=== PATIENT | male | born 1960 | race Caucasian/White ===

== ENCOUNTER 2020-03-06 11:05 | Outpatient (REF) | payer MEDICARE, OTHER, SELFPAY ==
[2020-03-06 13:41] LABS: MANUAL DIFF FLAG NO
[2020-03-06 13:50] LABS: Basophils Absolute Auto 0.1 X10*3/uL (0.0-0.2); Basophils Percent Auto 0.5 % (0-2); Eosinophils Absolute Auto 0.3 X10*3/uL (0.0-0.4); Eosinophils Percent Auto 2.6 % (0-4); Hematocrit 41.2 % (42-52); Hemoglobin 13.5 g/dl (14.0-18.0); Imm Gran Abs Auto 0.03 X10*3/uL (0.00-0.03); Imm Gran Pct Auto 0.3 % (0.0-0.4); Lymphocytes Absolute Auto 3.6 X10*3/uL (1.2-4.9); Mean Corpuscular HGB Conc 32.8 g/dl (31.0-36.0); Mean Corpuscular Volume 88.4 fL (80-98); Mean Platelet Volume 11.6 fL (9.4-12.4); Monocytes Absolute Auto 0.5 X10*3/uL (0.1-1.2); Monocytes Percent Auto 5.4 % (2-11); Neutrophils Absolute Auto 5.3 X10*3/uL (2.0-8.3); Neutrophils Percent Auto 54.2 % (45-73); Platelet Count 283 X10*3/uL (160-400); Red Blood Count 4.66 X10*6/uL (4.60-5.80); Red Cell Distribution Width 12.9 % (11.0-16.0); White Blood Count 9.7 X10*3/uL (4.8-10.8)
[2020-03-06 14:06] LABS: Estimated Average Glucose 252 mg/dL; Hemoglobin A1c % 10.4 %
[2020-03-06 14:11] LABS: Alanine Aminotransferase 24 U/L (0-40); Albumin Level 4.6 g/dL (3.5-5.0); Alkaline Phosphatase 123 U/L (39-117); Anion Gap 15 (12-20); Aspartate Amino Transferase 13 U/L (5-37); Bilirubin Total 0.3 mg/dL (0.0-1.0); Blood Urea Nitrogen 14 mg/dL (9-16); Calcium 9.7 mg/dL (8.4-10.2); Carbon Dioxide 25 mmol/L (22-29); Chloride 99 mmol/L (96-108); Cholesterol 194 mg/dL; Estimated Glomerular Filt Rate > 60; Glucose Random 195 mg/dL (60-115); Potassium 4.8 mmol/l (3.3-5.1); Sodium 134 mmol/L (135-145); Total Protein 7.4 g/dL (6.5-8.0)
[2020-03-06 14:27] LABS: Prostate Specific Antigen 0.69 ng/mL (<0.05-4.0)
[2020-03-06 14:40] LABS: Creatinine Urine 45.63 mg/dL; Microalbum/Creatinine Ratio Ur 15.3 ug/mg cr
== END 2020-03-06 11:06 | disposition home or self-care (01) ==
LOC: HO.10HDL 11:05
PROVIDERS: Visit Provider Internal Medicine
DX: E11.22 Type 2 diabetes mellitus with diabetic chronic kidney disease (principal); I12.9 Hypertensive chronic kidney disease with stage 1 through stage 4 chronic kidney disease, or unspecified chronic kidney disease; N18.9 Chronic kidney disease, unspecified; R35.1 Nocturia; J44.9 Chronic obstructive pulmonary disease, unspecified
CPT/HCPCS: 36415; 80053; 82043; 82465; 83036; 84153; 85025

== ENCOUNTER → 2020-03-31 15:10 | Outpatient (BNVA) | payer MEDICARE, OTHER, SELFPAY | PROVIDERS: PCP Internal Medicine; Visit Provider Physician Assistant Medical | DX: Z76.89 Persons encountering health services in other specified circumstances (principal) | CPT/HCPCS: G0296 ==

== ENCOUNTER 2020-04-24 09:46 | Outpatient (REF) | payer MEDICARE, OTHER, SELFPAY ==
--- NOTE | 2020-04-24 09:50 | CT_ITS ---
EXAMINATION: CT CHEST SCREENING CLINICAL INFORMATION: Nicotine dependence. COMPARISON: None TECHNIQUE: Multidetector volumetric CT imaging of the chest is performed without contrast using low dose technique. Additional 2D coronal and sagittal reformatted images and axial 3D maximum intensity projection (MIP) images are generated on the CT workstation. This CT examination was performed using dose optimization techniques as appropriate, variously including the following: *Automated exposure control *Adjustment of mA and/or kV according to patient size (this includes techniques or standardized protocols for targeted exams where dose is matched to indication/reason for exam; i.e. extremities or head) *Use of iterative reconstruction technique DLP: 75 mGy-cm FINDINGS: LUNGS: The lungs are well expanded and clear of acute pneumonic process. There are 1 mm calcified nodules right upper lobe image 106/6 and 108/6, right lower lobe subpleural location image 322/6. There are several more punctate calcified nodules seen scattered in lungs. No noncalcified nodule seen. No ground-glass density. MEDIASTINUM: There is atherosclerotic calcified changes of the thoracic arch. The central trachea and the bronchi are widely patent. The thyroid lobes are symmetrical. No abnormal-sized mediastinal or hilar lymph node seen. There is no pericardial effusion. PLEURA: There is no pleural effusion. No pleural mass or thickening. AXILLA: No lymphadenopathy. UPPER ABDOMEN: Visualized liver, spleen, pancreas and bilateral adrenal glands are unremarkable. There are punctate radiopaque gallstones. OSSEOUS STRUCTURES: There is moderate ventral spondylosis mid and lower dorsal spine. No lytic process. CT/CT lung screening IMPRESSION: Punctate calcified 2 mm and less nodules. No abnormal-sized mediastinal or axillary lymph nodes. ASSESSMENT: Lung-RADS category 2: Benign. RECOMMENDATION: Low dose annual CT chest.
== END 2020-04-24 09:47 | disposition home or self-care (01) ==
LOC: HO.CT 09:46
PROVIDERS: Visit Provider Physician Assistant Medical
DX: Z12.2 Encounter for screening for malignant neoplasm of respiratory organs (principal); F17.210 Nicotine dependence, cigarettes, uncomplicated
CPT/HCPCS: 71271

== ENCOUNTER 2020-06-05 11:33 | Outpatient (REF) | payer MEDICARE, OTHER, SELFPAY ==
[2020-06-05 13:48] LABS: MANUAL DIFF FLAG NO
[2020-06-05 14:01] LABS: Basophils Absolute Auto 0.1 X10*3/uL (0.0-0.2); Basophils Percent Auto 0.6 % (0-2); Eosinophils Absolute Auto 0.2 X10*3/uL (0.0-0.4); Eosinophils Percent Auto 2.4 % (0-4); Hematocrit 42.8 % (42-52); Imm Gran Abs Auto 0.04 X10*3/uL (0.00-0.03); Imm Gran Pct Auto 0.4 % (0.0-0.4); Lymphocytes Absolute Auto 3.5 X10*3/uL (1.2-4.9); Lymphocytes Percent Auto 35.3 % (20-40); Mean Corpuscular HGB Conc 32.7 g/dl (31.0-36.0); Mean Corpuscular Hemoglobin 28.9 pg (27.0-33.0); Mean Corpuscular Volume 88.4 fL (80-98); Mean Platelet Volume 11.5 fL (9.4-12.4); Monocytes Absolute Auto 0.5 X10*3/uL (0.1-1.2); Monocytes Percent Auto 4.9 % (2-11); Neutrophils Absolute Auto 5.6 X10*3/uL (2.0-8.3); Neutrophils Percent Auto 56.4 % (45-73); Platelet Count 292 X10*3/uL (160-400); Red Blood Count 4.84 X10*6/uL (4.60-5.80); White Blood Count 9.8 X10*3/uL (4.8-10.8)
[2020-06-05 14:40] LABS: Creatinine Urine 77.06 mg/dL; Microalbum/Creatinine Ratio Ur 28.5 ug/mg cr
[2020-06-05 14:44] LABS: Alanine Aminotransferase 30 U/L (0-40); Albumin Level 4.7 g/dL (3.5-5.0); Alkaline Phosphatase 124 U/L (39-117); Anion Gap 14 (12-20); Aspartate Amino Transferase 17 U/L (5-37); Bilirubin Total 0.3 mg/dL (0.0-1.0); Blood Urea Nitrogen 17 mg/dL (9-16); Carbon Dioxide 26 mmol/L (22-29); Chloride 100 mmol/L (96-108); Estimated Glomerular Filt Rate > 60; Glucose Random 244 mg/dL (60-115); Sodium 135 mmol/L (135-145); Total Protein 7.6 g/dL (6.5-8.0)
[2020-06-05 14:46] LABS: Estimated Average Glucose 289 mg/dL; Hemoglobin A1c % 11.7 %
== END 2020-06-05 11:34 | disposition home or self-care (01) ==
LOC: HO.10HDL 11:33
PROVIDERS: Visit Provider Internal Medicine
DX: E11.22 Type 2 diabetes mellitus with diabetic chronic kidney disease (principal); I12.9 Hypertensive chronic kidney disease with stage 1 through stage 4 chronic kidney disease, or unspecified chronic kidney disease; N18.9 Chronic kidney disease, unspecified; J44.9 Chronic obstructive pulmonary disease, unspecified
CPT/HCPCS: 36415; 80053; 82043; 83036; 85025

== ENCOUNTER 2020-09-13 08:26 | Outpatient (REF) | payer MEDICARE, OTHER, SELFPAY ==
--- NOTE | ~2020-09-13 | XR_ITS ---
EXAMINATION: XR CERVICAL SPINE CLINICAL INFORMATION: Neck and right shoulder pain. COMPARISON: 01/12/2018 cervical spine radiographs. TECHNIQUE: 5 views of the cervical spine were obtained. FINDINGS: There is straightening of the normal cervical lordosis. There is normal spinal alignment. Moderate degenerative disc disease is seen from C4-5 to C6-7. Mild bilateral neural foraminal narrowing is seen from C3-4 to C6-7 bilaterally. The facet joints are unremarkable. The odontoid process is intact. The prevertebral soft tissues are unremarkable. XR/XR cervical spine min 6V IMPRESSION: 1. Straightening of the normal cervical lordosis may be secondary to positioning and/or muscle spasm. 2. C4-5 to C6-7 moderate degenerative disc disease. 3. C3-4 to C6-7 mild bilateral neural foraminal narrowing.
[2020-09-13 09:12] LABS: MANUAL DIFF FLAG NO
[2020-09-13 09:21] LABS: Basophils Absolute Auto 0.1 X10*3/uL (0.0-0.2); Basophils Percent Auto 0.5 % (0-2); Eosinophils Absolute Auto 0.5 X10*3/uL (0.0-0.4); Eosinophils Percent Auto 4.2 % (0-4); Hematocrit 42.7 % (42-52); Imm Gran Abs Auto 0.05 X10*3/uL (0.00-0.03); Imm Gran Pct Auto 0.5 % (0.0-0.4); Lymphocytes Absolute Auto 3.2 X10*3/uL (1.2-4.9); Lymphocytes Percent Auto 29.1 % (20-40); Mean Corpuscular HGB Conc 32.8 g/dl (31.0-36.0); Mean Corpuscular Hemoglobin 28.9 pg (27.0-33.0); Monocytes Absolute Auto 0.6 X10*3/uL (0.1-1.2); Monocytes Percent Auto 5.7 % (2-11); Neutrophils Absolute Auto 6.6 X10*3/uL (2.0-8.3); Platelet Count 254 X10*3/uL (160-400); Red Blood Count 4.85 X10*6/uL (4.60-5.80); Red Cell Distribution Width 13.2 % (11.0-16.0); White Blood Count 10.9 X10*3/uL (4.8-10.8)
[2020-09-13 09:24] LABS: Estimated Average Glucose 298 mg/dL
[2020-09-13 09:48] LABS: Alanine Aminotransferase 34 U/L (0-40); Albumin Level 4.5 g/dL (3.5-5.0); Alkaline Phosphatase 124 U/L (39-117); Anion Gap 14 (12-20); Aspartate Amino Transferase 20 U/L (5-37); Bilirubin Total 0.4 mg/dL (0.0-1.0); Blood Urea Nitrogen 15 mg/dL (9-16); Carbon Dioxide 27 mmol/L (22-29); Chloride 98 mmol/L (96-108); Estimated Glomerular Filt Rate 57; Glucose Random 313 mg/dL (60-115); Sodium 134 mmol/L (135-145); Total Protein 7.2 g/dL (6.5-8.0)
[2020-09-13 09:51] LABS: Creatinine Urine 98.66 mg/dL; Microalbum/Creatinine Ratio Ur 20.2 ug/mg cr
== END 2020-09-13 08:27 | disposition home or self-care (01) ==
LOC: HO.LAB 08:26
PROVIDERS: PCP Internal Medicine; Visit Provider Internal Medicine
DX: I12.9 Hypertensive chronic kidney disease with stage 1 through stage 4 chronic kidney disease, or unspecified chronic kidney disease (principal); E11.22 Type 2 diabetes mellitus with diabetic chronic kidney disease; N18.9 Chronic kidney disease, unspecified; M54.2 Cervicalgia; M25.511 Pain in right shoulder
CPT/HCPCS: 36415; 72052; 80053; 82043; 83036; 85025

== ENCOUNTER 2020-11-07 09:25 | Outpatient (REF) | payer MEDICARE, OTHER, SELFPAY | END 2020-11-07 09:26 | disposition home or self-care (01) | LOC: HO.LAB 09:25 | PROVIDERS: PCP Internal Medicine; Visit Provider Family Medicine Adult Medicine | DX: G89.4 Chronic pain syndrome (principal); M54.2 Cervicalgia; M25.511 Pain in right shoulder; M25.562 Pain in left knee; M25.561 Pain in right knee; M13.0 Polyarthritis, unspecified; E11.9 Type 2 diabetes mellitus without complications; I10 Essential (primary) hypertension; F17.210 Nicotine dependence, cigarettes, uncomplicated; Z96.652 Presence of left artificial knee joint; Z98.1 Arthrodesis status; Z79.4 Long term (current) use of insulin; Z79.899 Other long term (current) drug therapy | CPT/HCPCS: 99202 ==

== ENCOUNTER 2021-04-02 08:24 | Outpatient (REF) | payer MEDICARE, OTHER, SELFPAY ==
[2021-04-02 10:14] LABS: MANUAL DIFF FLAG NO
[2021-04-02 10:21] LABS: Basophils Absolute Auto 0.1 X10*3/uL (0.0-0.2); Basophils Percent Auto 0.5 % (0-2); Eosinophils Absolute Auto 0.4 X10*3/uL (0.0-0.4); Eosinophils Percent Auto 3.8 % (0-4); Hematocrit 41.9 % (42.0-52.0); Hemoglobin 13.6 g/dl (14.0-18.0); Imm Gran Abs Auto 0.04 X10*3/uL (0.00-0.03); Imm Gran Pct Auto 0.4 % (0.0-0.4); Lymphocytes Absolute Auto 4.3 X10*3/uL (1.2-4.9); Lymphocytes Percent Auto 42.3 % (20-40); Mean Corpuscular HGB Conc 32.5 g/dl (31.0-36.0); Mean Corpuscular Hemoglobin 28.5 pg (27.0-33.0); Mean Corpuscular Volume 87.8 fL (80.0-98.0); Mean Platelet Volume 11.8 fL (9.4-12.4); Monocytes Absolute Auto 0.7 X10*3/uL (0.1-1.2); Monocytes Percent Auto 6.4 % (2-11); Neutrophils Absolute Auto 4.7 x10*3/uL (2.0-8.3); Neutrophils Percent Auto 46.6 % (45-73); Platelet Count 285 X10*3/uL (160-400); Red Blood Count 4.77 X10*6/uL (4.60-5.80); Red Cell Distribution Width 12.8 % (11.0-16.0); White Blood Count 10.2 X10*3/uL (4.8-10.8)
[2021-04-02 10:30] LABS: Alanine Aminotransferase 26 U/L (0-40); Albumin Level 4.3 g/dL (3.5-5.0); Alkaline Phosphatase 128 U/L (39-117); Anion Gap 15 (12-20); Aspartate Amino Transferase 14 U/L (5-37); Bilirubin Total 0.3 mg/dL (0.0-1.0); Blood Urea Nitrogen 12 mg/dL (9-16); Calcium 9.7 mg/dL (8.4-10.2); Carbon Dioxide 24 mmol/L (22-29); Chloride 101 mmol/L (96-108); Estimated Glomerular Filt Rate 55; Glucose Random 270 mg/dL (60-115); Potassium 4.9 mmol/L (3.3-5.1); Sodium 135 mmol/L (135-145); Total Protein 7.3 g/dL (6.5-8.0)
[2021-04-02 10:49] LABS: Estimated Average Glucose 283 mg/dL; Hemoglobin A1c % 11.5 %
[2021-04-02 10:53] LABS: Creatinine Urine 84.94 mg/dL; Microalbum/Creatinine Ratio Ur 25.9 ug/mg cr
== END 2021-04-02 08:25 | disposition home or self-care (01) ==
LOC: HO.10HDL 08:24
PROVIDERS: Visit Provider Internal Medicine
DX: E11.22 Type 2 diabetes mellitus with diabetic chronic kidney disease (principal); I12.9 Hypertensive chronic kidney disease with stage 1 through stage 4 chronic kidney disease, or unspecified chronic kidney disease; N18.9 Chronic kidney disease, unspecified; J44.9 Chronic obstructive pulmonary disease, unspecified; M19.90 Unspecified osteoarthritis, unspecified site
CPT/HCPCS: 36415; 80053; 82043; 83036; 85025

== ENCOUNTER 2021-07-20 07:57 | Outpatient (REF) | payer MEDICARE, OTHER, SELFPAY ==
--- NOTE | ~2021-07-20 | XR_ITS ---
EXAMINATION: XR SHOULDER, RIGHT CLINICAL INFORMATION: Pain COMPARISON: None TECHNIQUE: Three views of the right shoulder. XR/XR shoulder RT min 2V FINDINGS/IMPRESSION: No acute fracture or dislocation. Small marginal osteophytes along the acromioclavicular and glenohumeral joints. Soft tissues unremarkable.
== END 2021-07-20 07:58 | disposition home or self-care (01) ==
LOC: HO.HOSX 07:57
PROVIDERS: PCP Internal Medicine; Visit Provider Physician Assistant
DX: M25.511 Pain in right shoulder (principal); M47.812 Spondylosis without myelopathy or radiculopathy, cervical region
CPT/HCPCS: 73030; 99202

== ENCOUNTER → 2021-08-20 08:01 | Outpatient (BNVA) | payer MEDICARE, OTHER, SELFPAY | PROVIDERS: PCP Internal Medicine; Visit Provider Internal Medicine | DX: M79.18 Myalgia, other site (principal); M47.812 Spondylosis without myelopathy or radiculopathy, cervical region | CPT/HCPCS: 20552; 20553; 99212 ==

== ENCOUNTER 2021-09-17 08:25 | Outpatient (REF) | payer MEDICARE, OTHER, SELFPAY ==
[2021-09-17 10:52] LABS: Alanine Aminotransferase 26 U/L (0-40); Albumin Level 4.5 g/dL (3.5-5.0); Alkaline Phosphatase 120 U/L (39-117); Anion Gap 15 (12-20); Aspartate Amino Transferase 14 U/L (5-37); Bilirubin Total 0.4 mg/dL (0.0-1.0); Blood Urea Nitrogen 15 mg/dL (9-16); Calcium 9.6 mg/dL (8.4-10.2); Carbon Dioxide 25 mmol/L (22-29); Chloride 101 mmol/L (96-108); Estimated Glomerular Filt Rate 56; Glucose Random 218 mg/dL (60-115); Potassium 5.8 mmol/L (3.3-5.1); Sodium 135 mmol/L (135-145); Total Protein 7.4 g/dL (6.5-8.0)
[2021-09-17 10:58] LABS: Estimated Average Glucose 246 mg/dL; Hemoglobin A1c % 10.2 %
== END 2021-09-17 08:26 | disposition home or self-care (01) ==
LOC: HO.10HDL 08:25
PROVIDERS: Visit Provider Internal Medicine
DX: I12.9 Hypertensive chronic kidney disease with stage 1 through stage 4 chronic kidney disease, or unspecified chronic kidney disease (principal); N18.9 Chronic kidney disease, unspecified; E11.22 Type 2 diabetes mellitus with diabetic chronic kidney disease
CPT/HCPCS: 36415; 80053; 83036

== ENCOUNTER 2021-11-09 08:13 | Outpatient (REF) | payer MEDICARE, OTHER, SELFPAY ==
[2021-11-09 11:10] LABS: Anion Gap 16 (12-20); Blood Urea Nitrogen 18 mg/dL (9-16); Calcium 9.7 mg/dL (8.4-10.2); Carbon Dioxide 24 mmol/L (22-29); Chloride 101 mmol/L (96-108); Estimated Glomerular Filt Rate 54; Glucose Random 157 mg/dL (60-115); Potassium 5.6 mmol/L (3.3-5.1); Sodium 135 mmol/L (135-145)
== END 2021-11-09 08:14 | disposition home or self-care (01) ==
LOC: HO.10HDL 08:13
PROVIDERS: Visit Provider Internal Medicine
DX: E11.9 Type 2 diabetes mellitus without complications (principal); N18.9 Chronic kidney disease, unspecified
CPT/HCPCS: 36415; 80048

== ENCOUNTER 2021-12-04 08:04 | Outpatient (REF) | payer MEDICARE, OTHER, SELFPAY ==
[2021-12-04 10:56] LABS: Anion Gap 16 (12-20); Carbon Dioxide 23 mmol/L (22-29); Chloride 101 mmol/L (96-108); Potassium 4.9 mmol/L (3.3-5.1); Sodium 135 mmol/L (135-145)
== END 2021-12-04 08:05 | disposition home or self-care (01) ==
LOC: HO.10HDL 08:04
PROVIDERS: Visit Provider Internal Medicine
DX: E87.5 Hyperkalemia (principal)
CPT/HCPCS: 36415; 80051

== ENCOUNTER 2021-12-28 09:52 | Outpatient (REF) | payer MEDICARE, OTHER, SELFPAY ==
[2021-12-28 11:18] LABS: Estimated Average Glucose 212 mg/dL
[2021-12-28 11:38] LABS: Anion Gap 18 (12-20); Blood Urea Nitrogen 16 mg/dL (9-16); Calcium 9.9 mg/dL (8.4-10.2); Carbon Dioxide 26 mmol/L (22-29); Chloride 100 mmol/L (96-108); Estimated Glomerular Filt Rate 53; Glucose Random 150 mg/dL (60-115); Potassium 5.6 mmol/L (3.3-5.1); Sodium 138 mmol/L (135-145)
== END 2021-12-28 09:53 | disposition home or self-care (01) ==
LOC: HO.10HDL 09:52
PROVIDERS: Visit Provider Internal Medicine
DX: E11.9 Type 2 diabetes mellitus without complications (principal); I10 Essential (primary) hypertension
CPT/HCPCS: 36415; 80048; 83036

== ENCOUNTER 2022-05-14 08:11 | Outpatient (REF) | payer MEDICARE, MEDICAID, SELFPAY ==
[2022-05-14 11:05] LABS: Estimated Average Glucose 232 mg/dL; Hemoglobin A1c % 9.7 %
[2022-05-14 11:41] LABS: Alanine Aminotransferase 21 U/L (0-40); Albumin Level 4.6 g/dL (3.5-5.0); Alkaline Phosphatase 123 U/L (39-117); Anion Gap 14 (12-20); Aspartate Amino Transferase 14 U/L (5-37); Bilirubin Total 0.4 mg/dL (0.0-1.0); Blood Urea Nitrogen 15 mg/dL (9-16); Calcium 9.8 mg/dL (8.4-10.2); Carbon Dioxide 27 mmol/L (22-29); Chloride 103 mmol/L (96-108); Estimated Glomerular Filt Rate 58; Glucose Random 141 mg/dL (60-115); Potassium 5.1 mmol/L (3.3-5.1); Sodium 139 mmol/L (135-145); Total Protein 7.3 g/dL (6.5-8.0)
== END 2022-05-14 08:12 | disposition home or self-care (01) ==
LOC: HO.10HDL 08:11
PROVIDERS: Visit Provider Internal Medicine
DX: E11.22 Type 2 diabetes mellitus with diabetic chronic kidney disease (principal); I12.9 Hypertensive chronic kidney disease with stage 1 through stage 4 chronic kidney disease, or unspecified chronic kidney disease; N18.9 Chronic kidney disease, unspecified
CPT/HCPCS: 36415; 80053; 83036

== ENCOUNTER 2022-06-18 11:15 | Outpatient (REF) | payer MEDICARE, MEDICAID, SELFPAY ==
[2022-06-18 14:50] LABS: Estimated Average Glucose 229 mg/dL; Hemoglobin A1c % 9.6 %
[2022-06-18 14:59] LABS: Anion Gap 14 (12-20); Blood Urea Nitrogen 16 mg/dL (9-16); Carbon Dioxide 26 mmol/L (22-29); Chloride 104 mmol/L (96-108); Estimated Glomerular Filt Rate 59; Glucose Random 106 mg/dL (60-115); Potassium 5.3 mmol/L (3.3-5.1); Sodium 139 mmol/L (135-145)
== END 2022-06-18 11:16 | disposition home or self-care (01) ==
LOC: HO.10HDL 11:15
PROVIDERS: Visit Provider Internal Medicine
DX: E11.22 Type 2 diabetes mellitus with diabetic chronic kidney disease (principal); N18.9 Chronic kidney disease, unspecified
CPT/HCPCS: 36415; 80048; 83036

== ENCOUNTER 2022-12-19 06:49 | Outpatient (REF) | payer OTHER, SELFPAY ==
[2022-12-19 07:12] LABS: MANUAL DIFF FLAG NO
[2022-12-19 08:24] LABS: Estimated Average Glucose 180 mg/dL; Hemoglobin A1c % 7.9 % (<6.0)
[2022-12-19 08:34] LABS: Basophils Absolute Auto 0.1 X10*3/uL (0.0-0.2); Basophils Percent Auto 0.7 % (0-2); Eosinophils Absolute Auto 0.4 X10*3/uL (0.0-0.4); Eosinophils Percent Auto 3.6 % (0-4); Hematocrit 40.4 % (42.0-52.0); Hemoglobin 12.8 g/dl (14.0-18.0); Imm Gran Abs Auto 0.03 X10*3/uL (0.00-0.03); Imm Gran Pct Auto 0.3 % (0.0-0.4); Lymphocytes Absolute Auto 3.8 X10*3/uL (1.2-4.9); Mean Corpuscular HGB Conc 31.7 g/dl (31.0-36.0); Mean Corpuscular Hemoglobin 28.8 pg (27.0-33.0); Mean Platelet Volume 11.5 fL (9.4-12.4); Monocytes Absolute Auto 0.6 X10*3/uL (0.1-1.2); Monocytes Percent Auto 6.1 % (2-11); Neutrophils Absolute Auto 5.2 x10*3/uL (2.0-8.3); Neutrophils Percent Auto 51.3 % (45-73); Platelet Count 247 X10*3/uL (160-400); Red Blood Count 4.44 X10*6/uL (4.60-5.80); Red Cell Distribution Width 13.2 % (11.0-16.0); White Blood Count 10.1 X10*3/uL (4.8-10.8)
[2022-12-19 08:39] LABS: Alanine Aminotransferase 28 U/L (0-40); Albumin Level 4.4 g/dL (3.5-5.0); Alkaline Phosphatase 116 U/L (39-117); Anion Gap 14 (12-20); Aspartate Amino Transferase 19 U/L (5-37); Bilirubin Total 0.3 mg/dL (0.0-1.0); Blood Urea Nitrogen 14 mg/dL (9-16); Calcium 10.1 mg/dL (8.4-10.2); Carbon Dioxide 24 mmol/L (22-29); Chloride 103 mmol/L (96-108); Cholesterol 192 mg/dL (<200); Estimated Glomerular Filt Rate 53; Glucose Fasting 154 mg/dL (60-99); HDL Cholesterol 41 mg/dL (>40); LDL Cholesterol Calculated 103 mg/dL (<100); Potassium 5.2 mmol/L (3.3-5.1); Sodium 136 mmol/L (135-145); Total Protein 7.7 g/dL (6.5-8.0); Triglycerides 244 mg/dL (<150)
[2022-12-19 08:57] LABS: Appearance Urine Clear; Color Urine Yellow; Glucose Urine UA 100 mg/dL (Negative); Leukocyte Esterase Urine Negative (Negative); Nitrite Urine Negative (Negative); Urine Blood Negative (Negative); Urine Ketones Negative (Negative); Urine Protein Negative (Neg-Trace)
[2022-12-19 09:03] LABS: Prostate Specific Antigen 0.83 ng/mL (<0.05-4.0)
[2022-12-19 09:16] LABS: Creatinine Urine 37.15 mg/dL; Microalbum/Creatinine Ratio Ur 34.9 ug/mg cr (<30)
== END 2022-12-19 06:50 | disposition home or self-care (01) ==
LOC: HO.LAB 06:49
PROVIDERS: PCP Internal Medicine; Visit Provider Internal Medicine
DX: E11.9 Type 2 diabetes mellitus without complications (principal); I10 Essential (primary) hypertension; E78.00 Pure hypercholesterolemia, unspecified; J44.9 Chronic obstructive pulmonary disease, unspecified; Z12.5 Encounter for screening for malignant neoplasm of prostate
CPT/HCPCS: 36415; 80053; 80061; 81003; 82043; 82570; 83036; 84153; 85025

== ENCOUNTER 2023-03-11 08:55 | Outpatient (REF) | payer OTHER, SELFPAY ==
[2023-03-11 10:46] LABS: MANUAL DIFF FLAG NO
[2023-03-11 10:51] LABS: Basophils Absolute Auto 0.1 X10*3/uL (0.0-0.2); Basophils Percent Auto 0.6 % (0-2); Eosinophils Absolute Auto 0.4 X10*3/uL (0.0-0.4); Eosinophils Percent Auto 3.6 % (0-4); Hematocrit 41.5 % (42.0-52.0); Hemoglobin 13.4 g/dl (14.0-18.0); Imm Gran Abs Auto 0.03 X10*3/uL (0.00-0.03); Imm Gran Pct Auto 0.3 % (0.0-0.4); Lymphocytes Absolute Auto 3.8 X10*3/uL (1.2-4.9); Lymphocytes Percent Auto 39.6 % (20-40); Mean Corpuscular HGB Conc 32.3 g/dl (31.0-36.0); Mean Corpuscular Hemoglobin 28.5 pg (27.0-33.0); Mean Corpuscular Volume 88.1 fL (80.0-98.0); Mean Platelet Volume 10.7 fL (9.4-12.4); Monocytes Absolute Auto 0.7 X10*3/uL (0.1-1.2); Monocytes Percent Auto 6.9 % (2-11); Neutrophils Absolute Auto 4.7 x10*3/uL (2.0-8.3); Platelet Count 288 X10*3/uL (160-400); Red Blood Count 4.71 X10*6/uL (4.60-5.80); White Blood Count 9.7 X10*3/uL (4.8-10.8)
[2023-03-11 11:01] LABS: Estimated Average Glucose 229 mg/dL; Hemoglobin A1c % 9.6 % (<6.0)
[2023-03-11 11:08] LABS: Alanine Aminotransferase 23 U/L (0-40); Albumin Level 4.3 g/dL (3.5-5.0); Alkaline Phosphatase 122 U/L (39-117); Anion Gap 11 (12-20); Aspartate Amino Transferase 16 U/L (5-37); Bilirubin Total 0.3 mg/dL (0.0-1.0); Blood Urea Nitrogen 13 mg/dL (9-16); Calcium 9.4 mg/dL (8.4-10.2); Carbon Dioxide 26 mmol/L (22-29); Chloride 102 mmol/L (96-108); Estimated Glomerular Filt Rate 55; Glucose Random 192 mg/dL (60-115); Potassium 4.8 mmol/L (3.3-5.1); Sodium 134 mmol/L (135-145); Total Protein 7.4 g/dL (6.5-8.0)
[2023-03-11 11:15] LABS: Creatinine Urine 77.74 mg/dL; Microalbum/Creatinine Ratio Ur 23.1 ug/mg cr (<30)
== END 2023-03-11 08:56 | disposition home or self-care (01) ==
LOC: HO.10HDL 08:55
PROVIDERS: Visit Provider Internal Medicine
DX: I12.9 Hypertensive chronic kidney disease with stage 1 through stage 4 chronic kidney disease, or unspecified chronic kidney disease (principal); E11.22 Type 2 diabetes mellitus with diabetic chronic kidney disease; N18.9 Chronic kidney disease, unspecified; J44.9 Chronic obstructive pulmonary disease, unspecified
CPT/HCPCS: 36415; 80053; 82043; 82570; 83036; 85025

== ENCOUNTER 2023-06-03 09:44 | Outpatient (REF) | payer OTHER, SELFPAY ==
[2023-06-03 10:51] LABS: MANUAL DIFF FLAG NO
[2023-06-03 11:01] LABS: Basophils Percent Auto 0.4 % (0-2); Eosinophils Absolute Auto 0.2 X10*3/uL (0.0-0.4); Hematocrit 42.1 % (42.0-52.0); Hemoglobin 13.8 g/dl (14.0-18.0); Imm Gran Abs Auto 0.03 X10*3/uL (0.00-0.03); Imm Gran Pct Auto 0.3 % (0.0-0.4); Lymphocytes Absolute Auto 2.8 X10*3/uL (1.2-4.9); Lymphocytes Percent Auto 29.4 % (20-40); Mean Corpuscular HGB Conc 32.8 g/dl (31.0-36.0); Mean Corpuscular Hemoglobin 28.8 pg (27.0-33.0); Mean Corpuscular Volume 87.9 fL (80.0-98.0); Mean Platelet Volume 11.1 fL (9.4-12.4); Monocytes Absolute Auto 0.5 X10*3/uL (0.1-1.2); Monocytes Percent Auto 5.6 % (2-11); Neutrophils Percent Auto 62.3 % (45-73); Platelet Count 320 X10*3/uL (160-400); Red Blood Count 4.79 X10*6/uL (4.60-5.80); Red Cell Distribution Width 13.2 % (11.0-16.0); White Blood Count 9.6 X10*3/uL (4.8-10.8)
[2023-06-03 11:02] LABS: Estimated Average Glucose 200 mg/dL; Hemoglobin A1c % 8.6 % (<6.0)
[2023-06-03 11:22] LABS: Alanine Aminotransferase 20 U/L (0-40); Albumin Level 4.3 g/dL (3.5-5.0); Alkaline Phosphatase 125 U/L (39-117); Anion Gap 14 (12-20); Aspartate Amino Transferase 12 U/L (5-37); Bilirubin Total 0.3 mg/dL (0.0-1.0); Blood Urea Nitrogen 19 mg/dL (9-16); Calcium 9.7 mg/dL (8.4-10.2); Carbon Dioxide 25 mmol/L (22-29); Chloride 101 mmol/L (96-108); Estimated Glomerular Filt Rate 52; Glucose Random 308 mg/dL (60-115); Potassium 5.5 mmol/L (3.3-5.1); Sodium 134 mmol/L (135-145); Total Protein 7.8 g/dL (6.5-8.0)
[2023-06-03 11:23] LABS: Creatinine Urine 41.23 mg/dL; Microalbum/Creatinine Ratio Ur 106.7 ug/mg cr (<30)
== END 2023-06-03 09:45 | disposition home or self-care (01) ==
LOC: HO.10HDL 09:44
PROVIDERS: Visit Provider Internal Medicine
DX: E11.9 Type 2 diabetes mellitus without complications (principal); J44.9 Chronic obstructive pulmonary disease, unspecified; I10 Essential (primary) hypertension
CPT/HCPCS: 36415; 80053; 82043; 82570; 83036; 85025

== ENCOUNTER 2023-07-01 10:33 | Outpatient (REF) | payer OTHER, SELFPAY ==
[2023-07-01 14:12] LABS: Anion Gap 14 (12-20); Blood Urea Nitrogen 16 mg/dL (9-16); Calcium 9.8 mg/dL (8.4-10.2); Carbon Dioxide 26 mmol/L (22-29); Chloride 102 mmol/L (96-108); Estimated Glomerular Filt Rate 51; Glucose Random 169 mg/dL (60-115); Potassium 4.7 mmol/L (3.3-5.1); Sodium 137 mmol/L (135-145)
== END 2023-07-01 10:34 | disposition home or self-care (01) ==
LOC: HO.10HDL 10:33
PROVIDERS: Visit Provider Internal Medicine
DX: I12.9 Hypertensive chronic kidney disease with stage 1 through stage 4 chronic kidney disease, or unspecified chronic kidney disease (principal); E11.22 Type 2 diabetes mellitus with diabetic chronic kidney disease; N18.9 Chronic kidney disease, unspecified
CPT/HCPCS: 36415; 80048

== ENCOUNTER 2023-11-17 09:12 | Outpatient (REF) | payer OTHER, SELFPAY ==
[2023-11-17 10:46] LABS: MANUAL DIFF FLAG NO
[2023-11-17 10:53] LABS: Basophils Absolute Auto 0.1 X10*3/uL (0.0-0.2); Basophils Percent Auto 0.5 % (0-2); Eosinophils Absolute Auto 0.3 X10*3/uL (0.0-0.4); Eosinophils Percent Auto 2.7 % (0-4); Hematocrit 42.7 % (42.0-52.0); Imm Gran Abs Auto 0.03 X10*3/uL (0.00-0.03); Imm Gran Pct Auto 0.3 % (0.0-0.4); Lymphocytes Absolute Auto 3.2 X10*3/uL (1.2-4.9); Lymphocytes Percent Auto 34.2 % (20-40); Mean Corpuscular HGB Conc 32.8 g/dl (31.0-36.0); Mean Corpuscular Hemoglobin 29.2 pg (27.0-33.0); Mean Platelet Volume 10.6 fL (9.4-12.4); Monocytes Absolute Auto 0.5 X10*3/uL (0.1-1.2); Monocytes Percent Auto 5.4 % (2-11); Neutrophils Absolute Auto 5.4 x10*3/uL (2.0-8.3); Neutrophils Percent Auto 56.9 % (45-73); Platelet Count 273 X10*3/uL (160-400); Red Cell Distribution Width 13.5 % (11.0-16.0); White Blood Count 9.4 X10*3/uL (4.8-10.8)
[2023-11-17 11:00] LABS: Estimated Average Glucose 223 mg/dL; Hemoglobin A1c % 9.4 % (<6.0)
[2023-11-17 11:01] LABS: Anion Gap 13 (12-20); Blood Urea Nitrogen 19 mg/dL (9-16); Calcium 10.1 mg/dL (8.4-10.2); Carbon Dioxide 28 mmol/L (22-29); Chloride 102 mmol/L (96-108); Cholesterol 179 mg/dL (<200); Estimated Glomerular Filt Rate 48; Glucose Random 122 mg/dL (60-115); HDL Cholesterol 39 mg/dL (>40); LDL Cholesterol Calculated 101 mg/dL (<100); Potassium 5.6 mmol/L (3.3-5.1); Sodium 137 mmol/L (135-145); Triglycerides 198 mg/dL (<150)
[2023-11-17 11:23] LABS: Prostate Specific Antigen 0.83 ng/mL (<0.05-4.0)
[2023-11-17 12:00] LABS: Appearance Urine Clear; Color Urine Yellow; Glucose Urine UA 500 mg/dL (Negative); Leukocyte Esterase Urine Negative (Negative); Nitrite Urine Negative (Negative); PH 6.5 (5.0-9.0); Urine Blood Negative (Negative); Urine Ketones Negative (Negative); Urine Protein Negative (Neg-Trace)
[2023-11-17 12:31] LABS: Creatinine Urine 55.77 mg/dL; Microalbum/Creatinine Ratio Ur 23.3 ug/mg cr (<30)
== END 2023-11-17 09:13 | disposition home or self-care (01) ==
LOC: HO.10HDL 09:12
PROVIDERS: Visit Provider Internal Medicine
DX: Z12.5 Encounter for screening for malignant neoplasm of prostate (principal); I12.9 Hypertensive chronic kidney disease with stage 1 through stage 4 chronic kidney disease, or unspecified chronic kidney disease; E11.22 Type 2 diabetes mellitus with diabetic chronic kidney disease; N18.9 Chronic kidney disease, unspecified; J44.9 Chronic obstructive pulmonary disease, unspecified; E78.00 Pure hypercholesterolemia, unspecified
CPT/HCPCS: 36415; 80048; 80061; 81003; 82043; 82570; 83036; 84153; 85025

== ENCOUNTER 2024-02-12 08:48 | Outpatient (REF) | payer OTHER, SELFPAY ==
[2024-02-12 09:04] LABS: MANUAL DIFF FLAG NO
[2024-02-12 09:16] LABS: Basophils Absolute Auto 0.1 X10*3/uL (0.0-0.2); Basophils Percent Auto 0.5 % (0-2); Eosinophils Absolute Auto 0.3 X10*3/uL (0.0-0.4); Eosinophils Percent Auto 3.1 % (0-4); Hemoglobin 14.7 g/dl (14.0-18.0); Imm Gran Abs Auto 0.03 X10*3/uL (0.00-0.03); Imm Gran Pct Auto 0.3 % (0.0-0.4); Lymphocytes Absolute Auto 3.4 X10*3/uL (1.2-4.9); Lymphocytes Percent Auto 30.6 % (20-40); Mean Corpuscular HGB Conc 32.7 g/dl (31.0-36.0); Mean Corpuscular Volume 88.8 fL (80.0-98.0); Mean Platelet Volume 10.6 fL (9.4-12.4); Monocytes Absolute Auto 0.6 X10*3/uL (0.1-1.2); Monocytes Percent Auto 5.7 % (2-11); Neutrophils Absolute Auto 6.7 x10*3/uL (2.0-8.3); Neutrophils Percent Auto 59.8 % (45-73); Platelet Count 298 X10*3/uL (160-400); Red Blood Count 5.07 X10*6/uL (4.60-5.80); Red Cell Distribution Width 13.2 % (11.0-16.0); White Blood Count 11.1 X10*3/uL (4.8-10.8)
[2024-02-12 09:25] LABS: Estimated Average Glucose 246 mg/dL; Hemoglobin A1C 324.0637 umol/L; Hemoglobin A1c % 10.2 % (<6.0); Total Hemoglobin (HGBA1C) 3676.9987 umol/L
[2024-02-12 09:40] LABS: Alanine Aminotransferase 24 U/L (0-40); Albumin Level 4.5 g/dL (3.5-5.0); Alkaline Phosphatase 140 U/L (39-117); Anion Gap 15 (12-20); Aspartate Amino Transferase 18 U/L (5-37); Bilirubin Total 0.4 mg/dL (0.0-1.0); Blood Urea Nitrogen 20 mg/dL (9-16); Calcium 10.9 mg/dL (8.4-10.2); Carbon Dioxide 26 mmol/L (22-29); Chloride 101 mmol/L (96-108); Estimated Glomerular Filt Rate 42; Glucose Random 184 mg/dL (60-115); Potassium 5.8 mmol/L (3.3-5.1); Sodium 136 mmol/L (135-145); Total Protein 7.9 g/dL (6.5-8.0)
[2024-02-12 10:28] LABS: Creatinine Urine 77.59 mg/dL; Microalbum/Creatinine Ratio Ur 11.5 ug/mg cr (<30)
== END 2024-02-12 08:49 | disposition home or self-care (01) ==
LOC: HO.LAB 08:48
PROVIDERS: PCP Internal Medicine; Visit Provider Internal Medicine
DX: E11.9 Type 2 diabetes mellitus without complications (principal); I10 Essential (primary) hypertension; K21.9 Gastro-esophageal reflux disease without esophagitis; N18.9 Chronic kidney disease, unspecified
CPT/HCPCS: 36415; 80053; 82043; 82570; 83036; 85025

== ENCOUNTER 2024-04-09 09:08 | Outpatient (REF) | payer OTHER, SELFPAY ==
--- NOTE | ~2024-04-09 | XR_ITS ---
EXAMINATION: XR CHEST CLINICAL INFORMATION: Shoulder pain. NIDD, rule out lesion. COMPARISON: CT lung screening dated 04/24/2020. TECHNIQUE: 2 views of the chest were obtained. FINDINGS: The lungs are clear. The cardiomediastinal silhouette is normal in size. There is no pleural effusion or pneumothorax. No acute osseous abnormality. XR/XR chest 2V IMPRESSION: No acute cardiopulmonary findings. Electronically signed by: Virgilio Huerta MD 04/09/2024 10:35 AM BELEN BOLTON
--- OUTSIDE RECORDS SUMMARY | 2024-04-09 09:20 | XMS_ITS ---
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 Name Role Phone Jj Douglas MD Primary Care Provider Gorge Albarado Unavailable [phone] Allergies No Known Allergies REASON FOR VISIT At Risk Footcare, Toe Irritation, Ingrown Nail Medications Medication SIG (Take, Route, Frequency, Duration) Notes Start Date End Date Status glipiZIDE 10 MG 1 tablet 30 minutes before breakfast Orally Once a day Active oxyCODONE HCl 10 MG 1 tablet as needed O rally every 6 hrs Active Gabapentin 300 MG 1 capsule Orally Onc e a day Active metFORMIN HCl 500 MG 1 tablet with a brayan l Orally Once a day Active Extra Depth Orthopedic Shoes (1 Pair) with Customized Heat Molded Multidensity Innersoles (3 Pair) as directed Dx: NIDDM/Polyneuropathy (E11.42), Hammertoe Foot Deformity (M20.41,M20.42), Preulcerative Skin Lesion(s) (L85.1 05/09/2023 Active Omeprazole 20 MG 1 capsule 30 minutes before morning meal Orally Once a day Active Lisinopril 20 MG 1 tablet Orally Once a day Active Lantus SoloStar 100 UNIT/ML as directed Subcutaneous Act mouna Atorvastatin Calcium 20 MG 1 tablet Orally Once a day Active Social History Tobacco Use: Social History Observation Description Date Details (start date - stop date) Current Smoker NA - NA Tobacco Use/Smoking Question Answer Notes Are you a: current smoker Alcohol Screen Question Answer Notes Did you have a drink containing alcohol in the p ast year? Yes Points 0 Interpretation Negative Tobacco use other than smoking: Question Answer Notes Are you an other tobacco user? No Vital Signs Height 5ft5in in 12/09/2023 Weight 228 lbs 12/09/2023 BMI 37.94 kg/m2 12/09/2023 Procedures Procedure Date Ordered Date Performed Result Body Sit e 46505-BQDHLCD NAIL, 1-5 12/09/2023 N/A 79710-Iqqrctfh Plate 12/09/2023 N/A 90860-QOVV SKIN LESIONS, 2 TO 4 12/09/2023 N/A Z2323-VTBZQLOI DYSTROPHIC NAILS ANY # 12/09/2023 N/A Encounters Encounter Location Date Provider Diagnosis [facility] [place] [address] [place] [address] 12/09/2023 Gorge Nath Type 2 diabetes mellitus with diabetic polyneuropathy E11.42 ; Tinea unguium B35.1 ; Other hammer toe(s) (acquired), right foot M20.41 ; Other hammer toe(s) (acquired), left foot M20.42 and Ingrown nail L60.0 Assessments Encounter Date Diagnosis (ICD Code) Assessment Notes Treatment Notes Treatment Clinical Notes Section Notes 12/09/2023 Type 2 diabetes mellitus with diabetic polyneuropathy (ICD-10 - E11.42) 12/09/2023 Tinea unguium (ICD-10 - B35.1) 12/09/2023 Other hammer toe(s) (acquired), right foot (ICD-10 - M20.41) Response to treatment,Impro vement 12/09/2023 Other hammer toe(s) (acquired), left foot (ICD-10 - M20.42) Response to treatment,Impro vement 12/09/2023 Ingrown nail (ICD-10 - L60.0) Plan Of Treatment Pending Test Test Name Order Date 77630-XWIALLT NAIL, 1-5 12/09/2023 96138-Ltepdryl Plate 12/09/2023 57869-UNOU SKIN LESIONS, 2 TO 4 12/09/19 24 X7015-MTVDRSXE DYSTROPHIC NAILS ANY # Next Appt Details Follow Up: prn, Reason: Provider Name:Gorge Nath , 06/01/2024 02:00:00 PM, [address] [place], [address], Procedure Notes * Category Sub-Category Detail Notes Nail Avulsion Procedure A fine sterile e levator was placed between the eponychium, nail fold, and nail plate to separate the structures. A sterile nail splitter, and/or sterile 316 blade, was then used to longitudinally section the nail along its entire length through the eponychium to the area under the nail fold. The offending portion of nail was from the nail bed with a rolling action and then removed with a hemostat. No underlying bone was identified. There was minimal bleeding as hemostasis was achieved through the temporary use of either a digital tourniquet or the aforementioned local with epinephrine. A bacitracin sterile dressing was applied. Local wound aftercare instructions were discussed and dispensed. The patient was informed of both conservative and future surgical procedures to prevent recurrence. Tylenol or Motrin was recommended for pain or discomfort (17984) , DIABETES: Pt was advised as to the risk of delayed or nonhealing due to diabetes. Pt is to call the office with any questions, concerns, or complications Anesthesia was deferred - NEURO FRANCISCO JAVIER: patient has medically documented neuropathic condition affecting sensation Location Medial nail border , T2 Keratoma Treatment Parring or Cutting o f Benign Hyperkeratotic Lesion(s) 42423 ( 2-4 Lesions ) - The Benign hyperkeratotic lesions, as described above were pared, and/or cut utilizing a sterile 15 blade, tissue nippers, and/or dremel Debride Nails 1-5 Procedure: Performance of this nail treatment by a nonprofessional would put this patients foot and overall health at risk. Therefore, nail debridement was performed extensively to reduce/remove overall nail length, girth, thickness, subungual debris, and necrotic tissue, by manual and/or electrical means through the use of a nail nipper and/or dremel-type grinder set up operator surface, to a more viable healthy nail plate or bed tissue 1-5. Silver nitrate used for any petechial bleeding as necessary. Definitive antifungal treatment options have been reviewed and discussed with the patient. The patient chooses, no pharmaceutical tx (99741) Nail Reduction Nail Reduction Trimming of dyst rophic nails performed to reduce/remove overall nail length and girth, by manual and electrical means with use of a nail nipper and/or dremel, to more viable healthy nail plate or bed tissue, any number (G0127) Progress Notes * Moo OLSON JrDOB:1 06/03/1959 (63 yo M)Acc No.[id number]:12/09/2023 Progress Note Patient:?Arcadio Olson Provider:?oGrge Nath DPM :1960???Age:63 Y???Sex:Male Dwayne e:12/09/2023 Address:[address] [place], [place] [id number] Pcp:Jj Douglas MD Subjective: * Chief Complaints: * ???At Risk FootcareToe Irrit ationIngrown Nail * HPI: ???At Risk footcare:?Pt States Last PCP Visit:?Date?11/06/2023 ???Toe pain:?Treatments:?Rx shoes .? * ROS:?General/Constitutional:?Nausea?denies.?Vomiting?denies.?Hunger Thirst?denies.?Loss appetite?denies.?Chills?denies.?Fatigue?denies.?Fever?denies.?Night Sweats?denies.?Unexplained weight loss?denies.?Unexplained weight gain?denies.?HEENTM:?Dentures?admits.?Dizziness?denies.?Glasses/contacts?admits.?Retinopathy?de nies.?Blurred/double vision?denies.?TMJ?denies.?Discharge/drainage?denies.?Implants?denies.?Sore throat?denies.?Dental implants?denies.?Hard of hearing ?denies.?Difficulty chewing/swallowing/speaking?denies.?Nose bleeds?denies.?Sore mouth?denies.?Respiratory:?On Oxygen?denies.?Pneumonia/pleurisy?denies.?Bronchitis?denies.?Emphysema?denies.?C oughing?denies.?Cough blood?denies.?Shortness of breath?denies.?Wheezing?denies.?Cardiovascular:?Pacemaker?denies.?MVP?denies.?WPW?denies.?CHF?denies.?Heart attack?denies.?Septal defect?denies.?Rapid beat?denies.?Chest pain ?denies.?Atrial Fib.?denies.?Murmur/Palpitations?denies.?Gastrointestinal:?Hemorrhoids?denies.?Stomach/Abdominal pain?denies.?Dark blood stool?denies.?Irritable bowel ?denies.?Constipation?denies.?Diarrhea?denies.?Hematology:?Swelling?denies.?Clots?denies.?Varicose Veins?denies.?Bruising?denies.?Bleeding problem?denies.?Genitourinary:?Blood urine?denies.?Frequent/Painfu/urination/bladder control?denies.?Kidney stones?denies.?Infection (UTI)?denies.?Nephropathy?admits.?sex trans dis (STD)?denies.?Prostate?denies.?Musculoskeletal:?Hammertoes?admits.?Bunions?denies.?Back Pain?admits.?Muscle Cramps/ Resting?denies.?Muscle cramps / walking?denies.?Generalized aches and pains?admits.?Weakness?denies.?Integ.:?Schwab?denies.?Scars?denies.?Corns/calluses?admits.?Ingrown nails?admits.?Painful nails?denies.?Open Sores?denies.?Rashes?denies.?Neurologic:?Difficulty sleeping?denies.?Brain disorder?denies.?Numbness?admits.?Balance trouble?denies.?Confusion?denies.?Fainting/blackouts?denies.?Tingling?admits.?Tr emors?denies.? * Medical History:? * Surgical History:?knee surge ry 2017back surgery 1995cyst removal from tailbone 1995 * Hospitalization/Major Diagno stic Procedure:?Denies Past Hospitalization * Family History:?Mother: unkn own.?Father: unknown, diagnosed with Other malignant neoplasm of unspecified site.? * Social History:?Tobacco Use:?Tobacco Use/Smoking?Are you a:?current smoker ?Tobacco use other than smoking?Are you an other tobacco user??No ???Drugs/Alcohol:?Drugs?Have you used drugs other than those for medical reasons in the past 12 months??No ?Alcohol Screen?Did you have a drink containing alcohol in the past year??Yes ?Points?0 ?Interpretation?Negative ???Miscellaneous:?Caffeine: yes, frequency:. ?Children: yes. ?no Exercise. ?Marital status: single. ?Occupation: Retired. * Medications:?TakingLantus So Khoiar 100 UNIT/ML Solution Pen-injector as directed Subcutaneous Atorvastatin Calcium 20 MG Tablet 1 tablet Orally Once a dayOmeprazole 20 MG Capsule Delayed Release 1 capsule 30 minutes before morning meal Orally Once a dayLisinopril 20 MG Tablet 1 tablet Orally Once a dayglipiZIDE 10 MG Tablet 1 tablet 30 minutes before breakfast Orally Once a dayoxyCODONE HCl 10 MG Tablet 1 tablet as needed Orally every 6 hrsGabapentin 300 MG Capsule 1 capsule Orally Once a daymetFORMIN HCl 500 MG Tablet 1 tablet with a meal Orally Once a dayExtra Depth Orthopedic Shoes (1 Pair) with Customized Heat Molded Multidensity Innersoles (3 Pair) as directed Dx: NIDDM/Polyneuropathy (E11.42), Hammertoe Foot Deformity (M20.41,M20.42), Preulcerative Skin Lesion(s) (L85.1Medication List reviewed and reconciled with the patientTaking Lantus SoloStar 100 UNIT/ML Solution Pen- injector as directed Subcutaneous Taking Atorvastatin Calcium 20 MG Tablet 1 tablet Orally Once a dayTaking Omeprazole 20 MG Capsule Delayed Release 1 capsule 30 minutes before morning meal Orally Once a dayTaking Lisinopril 20 MG Tablet 1 tablet Orally Once a dayTaking glipiZIDE 10 MG Tablet 1 tablet 30 minutes before breakfast Orally Once a dayTaking oxyCODONE HCl 10 MG Tablet 1 tablet as needed Orally every 6 hrsTaking Gabapentin 300 MG Capsule 1 capsule Orally Once a dayTaking metFORMIN HCl 500 MG Tablet 1 tablet with a meal Orally Once a dayTaking Extra Depth Orthopedic Shoes (1 Pair) with Customized Heat Molded Multidensity Innersoles (3 Pair) as directed Dx: NIDDM/Polyneuropathy (E11.42), Hammertoe Foot Deformity (M20.41,M20.42), Preulcerative Skin Lesion(s) (L85.1Medication List reviewed and reconciled with the patient * Allergies:?N.K.D.A.yes[Aller gies Verified] Objective: * Vitals:?Ht: 5ft5in, Wt:228, BMI:37.94, Shoe size: 10, BS: not taken, Ht-cm: 165.1 cm, Wt-k.42 kg. * Examination: ???Neurological: ?SENSORY:?Neurological exam demonstrates, reduced light touch sensation, reduced sharp/dull discrimination , reduced vibration sensation, in a stocking fashion, B/L, 5.07 monofilament test performed at plantar aspects of 5 varied sites per foot shows sensation, reduced, B/L?.?Nails: ?NAILS are:?Elongated, overgrown, dystrophic, lytic, greater than 3mm thick, discolored and friable with crumbly malodorous subungual debris , TA , T5 , remaining nails are elongated, overgrown, dystrophic.?Dermatologic: ?SKIN FINDINGS:?Skin exam reveals Keratotic lesion(s) located at , Heel(s) , B/L.?Orthopedic: ?DIGITAL DEFORMITIES:?Digital contracture, PIPJ, 2-5 B/L, incompl-reducible to push-up test, no over, nor underlapping, now no longer, with evidence of shoe producing skin irritation.?FOOTWEAR:?good condition, exhibit proper fit and accommodation for pedal deformities. OT were inspected and noted to be worn, but in good condition giving proper support at the present time.?Ingrown Nail: ?INSPECTION:?Reveals nail incurvation, dull pain on palpation due to neuropathy, groove hypertrophy , Medial nail border , T2.? Assessment: * Assessment: 1.?Tinea unguium - B35.1?2.? Type 2 diabetes mellitus with diabetic polyneuropathy - E11.42 (Primary)?3.?Other hammer toe(s) (acquired), right foot - M20.41, Chronic problem, Stable (1=3,2=4), Response to treatment,Improvement?4.?Other hammer toe(s) (acquired), left foot - M20.42, Chronic problem, Stable (1=3,2=4), Response to treatment,Improvement?5.?Ingrown nail - L60.0, Medial nail border , T2? Plan: * Treatment: 2.?Ingrown nail?Procedure: 92412-Txhfpjte Plate * Procedures:?Debride Nails 1-5:?Procedure:?Performance of this nail treatment by a nonprofessional would put this patients foot and overall health at risk. Therefore, nail debridement was performed extensively to reduce/remove overall nail length, girth, thickness, subungual debris, and necrotic tissue, by manual and/or electrical means through the use of a nail nipper and/or dremel-type grinder set up operator surface, to a more viable healthy nail plate or bed tissue 1-5. Silver nitrate used for any petechial bleeding as necessary. Definitive antifungal treatment options have been reviewed and discussed with the patient. The patient chooses, no pharmaceutical tx (91428).?Keratoma Treatment:?Parring or Cutting of Benign Hyperkeratotic Lesion(s)?92506 ( 2-4 Lesions ) - The Benign hyperkeratotic lesions, as described above were pared, and/or cut utilizing a sterile 15 blade, tissue nippers, and/or dremel.?Nail Avulsion:?Location?Medial nail border?,?T2.?Anesthesia?was deferred - NEUROPATHY: patient has medically documented neuropathic condition affecting sensation.?Procedure?A fine sterile elevator was placed between the eponychium, nail fold, and nail plate to separate the structures. A sterile nail splitter, and/or sterile 316 blade, was then used to longitudinally section the nail along its entire length through the eponychium to the area under the nail fold. The offending portion of nail was from the nail bed with a rolling action and then removed with a hemostat. No underlying bone was identified. There was minimal bleeding as hemostasis was achieved through the temporary use of either a digital tourniquet or the aforementioned local with epinephrine. A bacitracin sterile dressing was applied. Local wound aftercare instructions were discussed and dispensed. The patient was informed of both conservative and future surgical procedures to prevent recurrence. Tylenol or Motrin was recommended for pain or discomfort (64977) , DIABETES: Pt was advised as to the risk of delayed or nonhealing due to diabetes. Pt is to call the office with any questions, concerns, or complications.?Nail Reduction:?Nail Reduction?Trimming of dystrophic nails performed to reduce/remove overall nail length and girth, by manual and electrical means with use of a nail nipper and/or dremel, to more viable healthy nail plate or bed tissue, any number (G0127).? * Procedure Codes:?15001 Avuls ion Plate, Modifiers: XS , [id number] TRIMMING DYSTROPHIC NAILS ANY #, Modifiers: XS 70974 DEBRIDE NAIL, 1-5, Modifiers: XS 48592 TRIM SKIN LESIONS, 2 TO 4, Modifiers: XS * Preventive Medicine:? ??Counseling:?Discussion:?-13: Office or other outpatient visit for the evaluation and management of an established patient, which required a medically appropriate history and/or examination and LOW level of DECISION MAKING for: 1 STABLE ACUTE UNCOMPLICATED PROBLEM, 2 OR MORE MINOR PROBLEMS, OR 1 STABLE CHRONIC PROBLEM, THAT POSE(S) A LOW RISK FOR MORBIDITY/MORTALITY. The visit on the day of the encounter encompassed interpreting the data and educating the patient as to the nature of their condition, treatment options available according to their individual PMH, meds, allergies, and overall health/living conditions, as well as any potential risks or complications that may occur from a failure to adhere to, and participate in, the recommended course of therapy. The discussion included a complete verbal, and/or written explanation of the examination results, any x-rays taken, the proposed diagnosis, and outline of the treatment plan. A schedule for future care needs was also explained. The patient verbalized an understanding of the instructions at this time and agreed to be an active participant in their treatment. If the patient should think of any questions or concerns after the visit, I have encouraged the patient to call the office.?Shoe Gear Counseling:?A thorough inspection of the patients Rxed shoegear and inserts was performed and findings communicated. We reviewed the many important medical advantages for adhering to regularly wearing these shoe and insert accomidative devices daily as well as reviewed the fact that a failure in accepting these recommedations may be deleterious, unable to prevent, and disadvantagely result in, many pedal complications such as skin irritation, skin ulceration, infection, and even loss of toe/foot/leg/or even their life. Time was also spent reviewing the proper footcare techniques including daily skin moisturization, daily foot inspection for any interruption in skin integrity, open lesions, or sign of infection such as redness/malodor/drainage/swelling as well as daily shoe inspection for the presence of internal foreign bodies and shoe as well as insert wear. Patient questions re: shoes, inserts, and self foot inspections were answered to their satisfaction as the patient verbally confirmed a full understanding of the above information.? * Follow Up:?prn * Images: * Sign off status: Completed true * Provider:?Gorge Nath DPM Date:?2023 Generated for Rodrigo anthony/Davey/Yarely on:?04/09/2024 09:19 AM EST History and Physical Notes * HPI (History of Present Illness) Category Sub-Category Detail Notes Category Not es Toe pain Treatments: Rx shoes At Risk footcare Pt States Last PCP Visit: Date: 4 Examination Category Sub-Category Detail Notes Category Not es Ingrown Nail INSPECTION: Reveals nail inc urvation, dull pain on palpation due to neuropathy, groove hypertrophy , Medial nail border , T2 Neurological SENSORY: Neurological exa m demonstrates, reduced light touch sensation, reduced sharp/dull discrimination , reduced vibration sensation, in a stocking fashion, B/L, 5.07 monofilament test performed at plantar aspects of 5 varied sites per foot shows sensation, reduced, B/L Dermatologic SKIN FINDINGS: Skin exam reveal s Keratotic lesion(s) located at , Heel(s) , B/L Orthopedic FOOTWEAR: good condition, exhibit proper fit and accommodation for pedal deformities. OT were inspected and noted to be worn, but in good condition giving proper support at the present time DIGITAL DEFORMITIES: Digital contracture , PIPJ, 2-5 B/L, incompl-reducible to push-up test, no over, nor underlapping, now no longer, with evidence of shoe producing skin irritation Nails NAILS are: Elongated, overg rown, dystrophic, lytic, greater than 3mm thick, discolored and friable with crumbly malodorous subungual debris , TA , T5 , remaining nails are elongated, overgrown, dystrophic
--- OUTSIDE RECORDS SUMMARY | 2024-04-09 09:20 | XMS_ITS ---
Author Organization [facility]app[facility] Address [address] [place] [address] Care Team Providers Care Milk Runner Name Role Phone Jj Douglas MD Primary Care Provider Gorge Albarado Unavailable [phone] Allergies No Known Allergies REASON FOR VISIT At Risk Footcare, Ingrown Nail, Heel pain Medications Medication SIG (Take, Route, Frequency, Duration) Notes Start Date End Date Status Night Splint AFO - L1930 1 wear at rest for 30 days Active oxyCODONE HCl 10 MG 1 tablet [...] (M20.41,M20.42), Preulcerative Skin Lesion(s) (L85.1 05/09/2023 Active glipiZIDE 10 MG 1 tablet 30 minutes before breakfast Orally Once a day Active Lantus SoloStar 100 UNIT/ML as directed Subcutaneous Act mouna Atorvastatin Calcium 20 MG 1 tablet Orally Once a day Active Omeprazole 20 MG 1 capsule 30 [...] Are you an other tobacco user? No Problems Problem Type SNOMED Code ICD Code Onset Dates Problem Status W/U Status Risk Notes Problem Plantar fasciitis of left foot (672525488141608 01) Plantar fasciitis of left foot (M72.2) Active confirmed Problem Interstitial myositis (75804334) Interstitial myositis of left foot (M60.172) Active confirmed Vital Signs Height 5ft5in in 03/02/2024 Weight 228 lbs 03/02/2024 BMI 37.94 kg/m2 03/02/2024 Procedures Procedure Date Ordered Date Performed Result Body Sit e 20239-QRLADMY NAIL, 1-5 03/02/2024 N/A 74131-Txwznrba Plate 03/02/2024 N/A 98812-JJUS SKIN LESIONS, 2 TO 4 03/02/2024 N/A A5861-KNGVFVPY DYSTROPHIC NAILS ANY # 03/02/2024 N/A Encounters Encounter Location Date Provider Diagnosis [facility] [address] [address] 03/02/2024 Gorge Nath Type 2 diabetes mellitus with diabetic polyneuropathy E11.42 ; Tinea unguium B35.1 ; Ingrown nail L60.0 ; Pain in left foot M79.672 ; Plantar fasciitis of left foot M72.2 ; Calcaneal spur, left foot M77.32 ; Interstitial myositis of left foot M60.172 and Bursitis of left foot M77.52 Assessments Encounter Date Diagnosis (ICD Code) Assessment Notes Treatment Notes Treatment Clinical Notes Section Notes 03/02/2024 Type 2 diabetes mellitus with diabetic polyneuropathy (ICD-10 - E11.42) 03/02/2024 Tinea unguium (ICD-10 - B35.1) 03/02/2024 Ingrown nail (ICD-10 - L60.0) 03/02/2024 Pain in left foot (ICD-10 - M79.672) 03/02/2024 Plantar fasciitis of left foot (ICD-10 - M72.2) Patient Educated with: HEEL CORD STRETCHES.pdf (HEEL CORD STRETCHES.pdf ) Patient Educated with: RICE THERAPY.pdf (RICE THERAPY.pdf) 03/02/2024 Calcaneal spur, left foot (ICD-10 - M77.32) 03/02/2024 Interstitial myositis of left foot (ICD-10 - M60.172) 03/02/2024 Bursitis of left foot (ICD-10 - M77.52) Plan Of Treatment Medication Medication Name Sig Start Date Stop Date Notes Night Splint AFO - L1930 1 wear at rest for 30 days Treatment Notes Assessment Notes Plantar fasciitis of left foot Patient E ducated with: HEEL CORD STRETCHES.pdf (HEEL CORD STRETCHES.pdf) Patient Educated with: RICE THERAPY.pdf (RICE THERAPY.pdf) Pending Test Test Name Order Date X ray : Foot, left 3V 03/02/2024 57677-BTYNVCW NAIL, 1-5 03/02/2024 39522-Kqlutkqr Plate 03/02/2024 69113-WWLL SKIN LESIONS, 2 TO 4 03/02/20 24 J6492-RSSTYIAJ DYSTROPHIC NAILS ANY # Next Appt Details Follow Up: 2 Months, Reason: Provider Name:Gorge Nath , 06/01/2024 02:00:00 PM, [address] [place] [address], [phone], Procedure Notes * Category Sub-Category Detail Notes [...] Motrin was recommended for pain or discomfort (40799) , DIABETES: Pt was advised as to the risk of delayed or nonhealing due to diabetes. Pt is to call the office with any questions, concerns, or complications Anesthesia was deferred - NEURO FRANCISCO JAVIER: patient has medically documented neuropathic condition affecting sensation Location Medial nail border , T5 Keratoma Treatment Parring or Cutting o f Benign Hyperkeratotic Lesion(s) (-56) 2-4 Lesions - The Benign hyperkeratotic lesions, as described in exam, were pared, and/or cut utilizing a sterile 15 blade, tissue nippers, and/or dremel - 91484 Debride Nails 1-5 Procedure: Performance of this nail treatment by a nonprofessional would put this patients foot and overall health at risk. Therefore, debridement to affected nail(s), as described in exam, was performed extensively to reduce/remove overall nail length, girth, thickness, subungual debris, and necrotic tissue, by manual and/or electrical means through the use of a nail nipper and/or dremel-type roll contour grinder, to a more viable healthy nail plate or bed tissue 1-5. Silver nitrate used for any petechial bleeding as necessary. Definitive antifungal treatment options have been reviewed and discussed with the patient. The patient chooses, no pharmaceutical tx - 25490 Nail Reduction Nail Reduction (-27) Trimming o f dystrophic nails, as described in exam, was performed to reduce/remove overall nail length and girth, by manual and electrical means with use of a nail nipper and/or dremel, to more viable healthy nail plate or bed tissue, any number - G0127 Progress Notes * Moo OLSON JrDOB:1 06/03/1959 (63 yo M)Acc No.[id number]:03/02/2024 Progress Note Patient:?Arcadio OLSON Jr Provider:?Gorge Nath DPM :1960???Age:63 Y???Sex:Male Dwayne e:03/02/2024 Address:[address] [place], [place] [id number] Pcp:Jj Douglas MD Subjective: * Chief Complaints: * ???At Risk FootcareIngrown N ailHeel pain * HPI: ???At Risk footcare:?Pt States Last PCP Visit:?Date?11/06/2023 ???Heel pain:?Location:?Proximal plantar aspect of Heel, LEFT.?Duration:?several days.?Course:?worse.?Aggravated:?standing, walking, walking first thing in the morning/after rest.?Treatments:?rest/alter normal daily activity, change in shoes, innersoles.? * ROS:?General/Constitutional:?Nausea?denies.?Vomiting?denies.?Hunger Thirst?denies.?Loss appetite?denies.?Chills?denies.?Fatigue?denies.?Fever?denies.?Night Sweats?denies.?Unexplained weight loss?denies.?Unexplained [...] surge ry 2017back surgery 1995[facility] * Hospitalization/Major Diagno stic Procedure:?Denies Past [...] ?Points?0 ?Interpretation?Negative ???Miscellaneous:?Caffeine: yes, frequency:. ?Children: yes. ?Exercise: no. ?Marital status: single. ?Occupation: Retired. * Medications:?TakingLantus So loStar 100 UNIT/ML Solution Pen-injector as directed Subcutaneous Atorvastatin Calcium 20 MG Tablet 1 tablet Orally Once a day Omeprazole 20 MG Capsule Delayed Release 1 capsule 30 minutes before morning meal Orally Once a day Lisinopril 20 MG Tablet 1 tablet Orally Once a day glipiZIDE 10 MG Tablet 1 tablet 30 minutes before breakfast Orally Once a day oxyCODONE HCl 10 MG Tablet 1 tablet as needed Orally every 6 hrs Gabapentin 300 MG Capsule 1 capsule Orally Once a day metFORMIN HCl 500 MG Tablet 1 tablet with a meal Orally Once a day Extra Depth Orthopedic Shoes (1 Pair) with Customized Heat Molded Multidensity Innersoles (3 Pair) as directed Dx: NIDDM/Polyneuropathy (E11.42), Hammertoe Foot Deformity (M20.41,M20.42), Preulcerative Skin Lesion(s) (L85.1 Medication List reviewed and reconciled with the patientTaking Lantus SoloStar 100 UNIT/ML Solution Pen- injector as directed Subcutaneous Taking Atorvastatin Calcium 20 MG Tablet 1 tablet Orally Once a day Taking Omeprazole 20 MG Capsule Delayed Release 1 capsule 30 minutes before morning meal Orally Once a day Taking Lisinopril 20 MG Tablet 1 tablet Orally Once a day Taking glipiZIDE 10 MG Tablet 1 tablet 30 minutes before breakfast Orally Once a day Taking oxyCODONE HCl 10 MG Tablet 1 tablet as needed Orally every 6 hrs Taking Gabapentin 300 MG Capsule 1 capsule Orally Once a day Taking metFORMIN HCl 500 MG Tablet 1 tablet with a meal Orally Once a day Taking Extra Depth Orthopedic Shoes (1 Pair) with Customized Heat Molded Multidensity Innersoles (3 Pair) as directed Dx: NIDDM/Polyneuropathy (E11.42), Hammertoe Foot Deformity (M20.41,M20.42), Preulcerative Skin Lesion(s) (L85.1 Medication List reviewed and reconciled with the patient * Allergies:?N.K.D.A.yes[Aller gies Verified] Objective: * Vitals:?Ht:5ft5in, Wt:228, B NV:37.94, Shoe size:10, BS:not taken, Ht-cm: 165.1 cm, Wt-k.42 kg. * Examination: ???Neurological: ?SENSORY:?Neurological exam demonstrates, reduced light touch sensation, reduced sharp/dull discrimination , reduced vibration sensation, in a stocking fashion, B/L, 5.07 monofilament test performed at plantar aspects of 5 varied sites per foot shows sensation, reduced, B/L?.?TINEL'S COMPRESSION:?Negative tarsal tunnel, stanley pedis, and medial calcaneal nerves.?Nails: ?NAILS are:?Elongated, overgrown, dystrophic, lytic, greater than 3mm thick, discolored and friable with crumbly malodorous subungual debris , TA , T5 , remaining nails are elongated, overgrown, dystrophic.?Dermatologic: ?SKIN FINDINGS:?Skin exam reveals Keratotic lesion(s) located at , Plantar, Heel(s) , B/L.?Ingrown Nail: ?INSPECTION:?Reveals nail incurvation, dull pain on palpation due to neuropathy, groove hypertrophy , Medial nail border , T5.?Heel Pain: ?INSPECTION:? Pain on Palpation to Plantar Fascia med. and central bands, intrinsic musc., infra-calcaneal bursa, and med calc tubercle , LEFT foot, No pain: posterior/superior heel, achilles bursa/tendon, sinus tarsi, peroneals, or with lateral heel compression; no limited STJ ROM, calor, or ecchymosis.?Orthopedic: ?MUSCLE STRENGTH:?5/5 all groups in a symmetrical fashion, B/L.?GAIT ABNORMALITY:?antalgic.?FOOT MORPHOLOGY:? Pes Planus structure, Decreased Ankle joint dorsiflexion ROM, knee extended , (-) Charcot collapse/destruction noted at MTJ.?DIGITAL DEFORMITIES:?Digital contracture, PIPJ, 2-5 B/L, incompl-reducible to push-up test, no over, nor underlapping, with evidence of shoe producing skin irritation.?FOOTWEAR:?good condition, exhibit proper fit and accommodation for pedal deformities. OT were inspected and noted to be worn, but in good condition giving proper support at the present time.?X-Rays - IMAGING REPORT: ?Clinical Indication(s):? Evaluate for Fracture, Evaluate Biomechanical Deformity.?Views:? 3 views of Foot, LAT, LO, MO, LEFT.?Findings:? normal bone and soft tissue density consistent for patients age and sex, navicular/cuneiform plantar subluxation with anterior cyma line, positive infra-calcaneal exostosis, no coalitions identified.?Foot structure:? reveals excess pronation with, anterior break in cyme line, increased talar declination, decreased calcaneal inclination.?Fracture:?Negative fractures identified.?Vascular: ?DP PULSES(B):?0/4, B/L.?PT PULSES(B):?0/4, B/L.?CAPILLARY FILL TIME:?delayed, all digits, B/L.?TROPHIC CONDITION-TEXTURE/ELASTICITY/TURGOR/HAIR GROWTH(B):?decreased, with sparse to absent hair growth, B/L.?TEMPERTURE GRADIENT(C):?decreased, cool to cool, proximal to distal, B/L.?PIGMENTATION:?pale, B/L.?EDEMA(C):?1/4 , non-pitting , without aching pain , Leg(s) , Ankle(s).?CLAUDICATION(C):?denies, B/L.?REST PAIN:?denies, B/L.?Ophthalmology Referral: ?DIABETES EYE EXAM?General Examination: ?GENERAL APPEARANCE:?Reveals a pleasant, alert, well nourished, well- developed, well hydrated individual, who demonstrates proper attention to hygiene/body habitus, and is in no acute distress, Pt serves as own historian for office visit today.?ORIENTED:?person, place, and time.?FOOT EXAM:?Footwear Evaluation? * Physical Examination:?L1930 Nightsplint AFO:?Application of static AFO, including soft interface material, adjustable for fit/ positioning/ pressure reduction, may be used for minimal ambulation, prefabricated, including fitting and adjustment:?Large, Left.? 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 Plan: * Treatment: 2.?Ingrown nail?Procedure: 68612-Ciuipail Plate 3.?Pain in left foot?Imaging: X ray : Foot, left 3V 4.?Plantar fasciitis of left foot? Start Night Splint AFO - L1930, 1, wear, at rest, 30 days, 1, Refills 0.?? Notes: Patient Educated with: HEEL CORD STRETCHES.pdf (HEEL CORD STRETCHES.pdf) Patient Educated with: RICE THERAPY.pdf (RICE THERAPY.pdf)?? * Procedures:?Debride Nails 1-5:?Procedure:?Performance of this nail treatment by a nonprofessional would put this patients foot and overall health at risk. Therefore, debridement to affected nail(s), as described in exam, was performed extensively to reduce/remove overall nail length, girth, thickness, subungual debris, and necrotic tissue, by manual and/or electrical means through the use of a nail nipper and/or dremel-type roll contour grinder, to a more viable healthy nail plate or bed tissue 1-5. Silver nitrate used for any petechial bleeding as necessary. Definitive antifungal treatment options have been reviewed and discussed with the patient. The patient chooses, no pharmaceutical tx - 72954.?Keratoma Treatment:?Parring or Cutting of Benign Hyperkeratotic Lesion(s)?(-56) 2-4 Lesions - The Benign hyperkeratotic lesions, as described in exam, were pared, and/or cut utilizing a sterile 15 blade, tissue nippers, and/or dremel - 89681.?Nail Avulsion:?Location?Medial nail border?,?T5.?Anesthesia?was deferred - NEUROPATHY: patient has medically documented [...] Motrin was recommended for pain or discomfort (54245) , DIABETES: Pt was advised as to the risk of delayed or nonhealing due to diabetes. Pt is to call the office with any questions, concerns, or complications.?Nail Reduction:?Nail Reduction?(-27) Trimming of dystrophic nails, as described in exam, was performed to reduce/remove overall nail length and girth, by manual and electrical means with use of a nail nipper and/or dremel, to more viable healthy nail plate or bed tissue, any number - G0127.? * Procedure Codes:?70889 Avuls ion Plate, Modifiers: XS , M144507 X-RAY EXAM OF LEFT FOOT 3V, Modifiers: 26 , [id number] TRIMMING DYSTROPHIC NAILS ANY #, Modifiers: XS 96031 DEBRIDE NAIL, 1-5, Modifiers: XS 30873 TRIM SKIN LESIONS, 2 TO 4, Modifiers: XS L1930 AFO PLASTIC/OTH MATERIAL PREFAB, Modifiers: LT * Preventive Medicine:? ??Counseling:?Discussion:?-14: Office or other outpatient visit for the evaluation and management of an established patient, which required a medically appropriate history and/or examination and MODERATE level of DECISION MAKING for: 1 OR MORE CHRONIC PROBLEM(S) THATS WORSENING, 2 STABLE CHRONIC PROBLEMS, A NEWLY DIAGNOSED PROBLEM WITH UNCERTAIN PROGNOSIS, AN ACUTE COMPLICATED INJURY WITH MULTIPLE TREATMENT OPTIONS, OR AN ACUTE PROBLEM WITH ACCOMPANYING SYSTEMIC SYMPTOMS, THAT POSE(S) A MODERATE RISK OF MORBIDITY. THIS CONDITION MAY ALSO INCLUDE RX DRUG MANAGEMENT, OR A DECISON FOR MINOR SURGERY. The visit on the day of the [...] have encouraged the patient to call the office.?Heel pain:?FASCIITIS: I explained to the patient the possible etiologies of Plantar Fasciitis including foot type/shoegear/activity level/exercise routine and the risks/benefits of all the different treatment options for heel pain including: No treatment at all, Rest, Ice, NSAIDs(only if well tolerated after meals), New/supportive Shoegear, Strappings and Tapings, Stretching exercises, Deep Tissue Massage, Heel cups/cushions, Arch support/shoe inserts, Custom orthoses, Topical analgesics including Aspercream/Voltaren gel, Night splint AFO for am stiffness, Cortisone injection therapy, Cast boot with crutches/cane/or walker for assisted ambulation, Physical Therapy, EPAT/ESWT, Interfil injection therapy, as well as surgical [place]/Endoscopic Fasciitomy surgical procedures if needed. Recommendations were made to limit barefoot walking, eliminate wearing nonsupportive shoegear (i.e. flip-flops or sandals, or a shoe with an easily bendable, foldable, or twistable sole) and wear shoegear with a good solid sole, a supportive arch, and plenty of room for an insert/orthotic if necessary. If wearing sandals was required by the patient, we recommended orthopedic sandals such as Orthoheel or Birkenstock even while in the home. If the patient wore heels in the past, we recommended they continue, but eliminate the use of flats. The advantages and disadvantages of each option were discussed and the patients questions re: types of shoegear, custom vs prefabricated inserts, activity level, PO vs Topical medications (and their respective potential complications/drug interactions/side effects), and consistency in home treatment regimens for optimal success were answered to their satisfaction. Literature detailing plantar fasciitis and the various treatment options were dispensed and reviewed.?Orthotics:?I explained to the patient the benefits of OT use. I explained that orthoses are medically necessary to decrease the foot pain through proper mechanical control, support of their foot , decrease stretch/strain on the plantar fascia, AFO - I explained to the patient the benefits of AFO use. Recommend AFO Lower Extremity Bracing to accomodate the patients deformity and result in pain relief without surgery, Patient signed confirmation form indicating receipt of DME device.?P.R.I.C.E.:?The patient was counseled on the use of P.R.I.C.E. and NSAIDS (if well tolerated) to aid in the recovery from their painful condition.?Shoe Gear Counseling:?The patient and I reviewed the types of shoes they should be wearing. My recommendation included obtaining a well-fitted shoe with a good supportive, non-foldable nor twistable sole, plenty of toe/room for the forefoot, and proper arch support. Based on todays examination, I recommended the patient look for new shoes, by having their feet professionally measured. We discussed that generally the best time of the day for a shoe fitting is the afternoon. Different shoes types and brands to best match the patients occupation and vocation were discussed. Specific brand selection will be up to the patient, their individual foot condition/deformities, and fit. The patient and I reviewed the standard new shoe break in period by wearing them for a few hours a day while checking for redness or sores as wear time is increased. The patient verbally confirmed to understanding the information discussed.?Stretching Exercises:?Stretching and deep tissue massage exercises for the patients injury/diagnosis were discussed and demonstrated, handouts were dispensed.? ??Screening/Special Tests:?Fall Risk?Assessment:?Performed ?Plan of Care:?Documented ?Screening:?No falls in the past year ?FALLS: Screening for Future Fall Risk?Have you had any falls with injury in the past year??No * Follow Up:?2 Months * Images: * Sign off status: Completed true * Provider:?Gorge Nath DPM Date:?2023 Generated for Rodrigo anthony/Davey/Yarely on:?04/09/2024 09:19 AM EST History and Physical Notes * HPI (History of Present Illness) Category Sub-Category Detail Notes Category Not es Heel pain Duration: several days Location: Proximal plantar asp ect of Heel, LEFT Aggravated: standing, walking, w alking first thing in the morning/after rest Course: worse Treatments: rest/alter normal da delta activity, change in shoes, innersoles At Risk footcare Pt States Last PCP Visit: Date: 4 Physical Examination Category Sub-Category Detail Notes Section Note s L1930 Nightsplint AFO Application of sta tic AFO, including soft interface material, adjustable for fit/ positioning/ pressure reduction, may be used for minimal ambulation, prefabricated, including fitting and adjustment: Large, Left Examination Category Sub-Category Detail Notes Category Not es Ingrown Nail INSPECTION: Reveals nail inc urvation, dull pain on palpation due to neuropathy, groove hypertrophy , Medial nail border , T5 Neurological SENSORY: Neurological exa m demonstrates, reduced light touch sensation, reduced sharp/dull discrimination , reduced vibration sensation, in a stocking fashion, B/L, 5.07 monofilament test performed at plantar aspects of 5 varied sites per foot shows sensation, reduced, B/L TINEL'S COMPRESSION: Negative tarsal iman jacobo, stanley pedis, and medial calcaneal nerves Dermatologic SKIN FINDINGS: Skin exam reveal s Keratotic lesion(s) located at , Plantar, Heel(s) , B/L Orthopedic GAIT ABNORMALITY: antalgic FOOT MORPHOLOGY: Pes Planus structure , Decreased Ankle joint dorsiflexion ROM, knee extended , (-) Charcot collapse/destruction noted at MTJ FOOTWEAR: good condition, exhi bit proper fit and accommodation for pedal deformities. OT were inspected and noted to be worn, but in good condition giving proper support at the present time DIGITAL DEFORMITIES: Digital contracture , PIPJ, 2-5 B/L, incompl-reducible to push-up test, no over, nor underlapping, with evidence of shoe producing skin irritation MUSCLE STRENGTH: 5/5 all groups in a symmetrical fashion, B/L General Examination GENERAL APPEARANCE: Reveals a pleasant, alert, well nourished, well-developed, well hydrated individual, who demonstrates proper attention to hygiene/body habitus, and is in no acute distress, Pt serves as own historian for office visit today FOOT EXAM: Lower Extremity Neurological Exa m performed:: Yes ORIENTED: person, place, and t mynor Footwear Evaluation Footwear Evaluation performe d:: Yes Ophthalmology Referral DIABETES EYE EXAM Diabetic Retinopa thy Screening:: Yes Retinal Screening Performed:: Yes Findings of Diabetic Eye Exam:: no retin opathy Vascular DP PULSES (B): 0/4, B/L PT PULSES (B): 0/4, B/L CAPILLARY FILL TIME: delayed, all digits , B/L TEMPERTURE GRADIENT (C): decreased, cool to cool, proximal to distal, B/L TROPHIC CONDITION-TEXTURE/ELASTICITY/TURGOR/HAIR GROWTH (B): decreased, with sparse to absent hair gr owth, B/L EDEMA (C): 1/4 , non-pitting , without aching pain , Leg(s) , Ankle(s) CLAUDICATION (C): denies, B/L REST PAIN: denies, B/L PIGMENTATION: pale, B/L Nails NAILS are: Elongated, overg rown, dystrophic, lytic, greater than 3mm thick, discolored and friable with crumbly malodorous subungual debris , TA , T5 , remaining nails are elongated, overgrown, dystrophic X-Rays - IMAGING REPORT Findings: normal b one and soft tissue density consistent for patients age and sex, navicular/cuneiform plantar subluxation with anterior cyma line, positive infra-calcaneal exostosis, no coalitions identified Fracture: Negative fractures i dentified Foot structure: reveals excess prona tion with, anterior break in cyme line, increased talar declination, decreased calcaneal inclination Views: 3 views of Foot, LAT , LO, MO, LEFT Clinical Indication(s): Evaluate for Fra cture, Evaluate Biomechanical Deformity Heel Pain INSPECTION: Pain on Palpatio n to Plantar Fascia med. and central bands, intrinsic musc., infra-calcaneal bursa, and med calc tubercle , LEFT foot, No pain: posterior/superior heel, achilles bursa/tendon, sinus tarsi, peroneals, or with lateral heel compression; no limited STJ ROM, calor, or ecchymosis
--- OUTSIDE RECORDS SUMMARY | 2024-04-09 09:20 | XMS_ITS ---
Author Organization [facility] Address [address] [place] [id number] Care Team Providers Care Terrazzo Polisher Name Role Phone Jj Douglas MD Primary Care Provider Gorge Albarado [phone] REASON FOR VISIT boot Encounters Encounter Location Date Provider Diagnosis [address] [id number] 2024 Gorge Nath Plan Of Treatment Next Appt Details Provider Name:Gorge Nath , 06/01/2024 02:00:00 PM, [address] [place] [address], [phone], Progress Notes * Moo OLSON JrDOB:1 06/03/1959 (64 yo M)Acc No.[id number] Patient:?Arcadio OLSON Jr :1960???Age:64 Y???Sex:Male Address:[address] [place] [id number] * true * Date:? Generated for Printi ng/Davey/eTransmitting on:?04/09/2024 09:19 AM EST
--- OUTSIDE RECORDS SUMMARY | 2024-04-09 09:20 | XMS_ITS | Patient Health Record ---
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 Name Role Phone Jj Douglas MD Primary Care Provider Gorge Albarado Unavailable [phone] Allergies No Known Allergies Reason For Referral No Information Medications Medication SIG (Take, Route, Frequency, Duration) Notes Start Date End Date Status Night Splint AFO - L1930 1 wear at rest for 30 days Active glipiZIDE 10 MG 1 tablet 30 minutes before breakfast Orally Once a day Active oxyCODONE HCl 10 MG 1 tablet as needed O rally every 6 hrs Active Gabapentin 300 MG 1 capsule Orally Onc e a day Active metFORMIN HCl 500 MG 1 tablet with a brayan l Orally Once a day Active Lantus SoloStar 100 UNIT/ML as directed Subcutaneous Act mouna Atorvastatin Calcium 20 MG 1 tablet Orally Once a day Active Omeprazole 20 MG 1 capsule 30 minutes before morning meal Orally Once a day Active Lisinopril 20 MG 1 tablet Orally Once a day Active Extra Depth Orthopedic Shoes (1 Pair) with Customized Heat Molded Multidensity Innersoles (3 Pair) as directed Dx: NIDDM/Polyneuropathy (E11.42), Hammertoe Foot Deformity (M20.41,M20.42), Preulcerative Skin Lesion(s) (L85.1 05/09/2023 Active Immunizations Vaccine Route Administration Date Status Comme nts Influenza Unknown 12/13/2022 Administered Social History Tobacco Use: Social History Observation [...] Problem Status W/U Status Risk Notes Problem Acquired hammer toe of right foot (7787854275905389 ) Other hammer toe(s) (acquired), right foot (M20.41) Active confirmed Response to treatment, Improvemen t Problem Acquired hammer toe of left foot (3448077496140671 ) Other hammer toe(s) (acquired), left foot (M20.42) Active confirmed Response to treatment, Improvemen t Problem Polyneuropathy due to type 2 diabetes mellitus (639832611) Type 2 diabetes mellitus with diabetic polyneuropathy (E11.42) Active confirmed Problem Plantar fasciitis of left foot (8563666018270538 1) Plantar fasciitis of left foot (M72.2) Active confirmed Problem Interstitial myositis (26511536) Interstitial myositis of left foot (M60.172) Active confirmed Vital Signs Height 5ft5in in 03/02/2024 Weight 228 lbs 03/02/2024 BMI 37.94 kg/m2 03/02/2024 Procedures Procedure Date Ordered Date Performed Result Body Sit e 58863-WBYEKMT NAIL, 1-5 05/09/2023 N/A 65351-Upgmjqgz Plate 05/09/2023 N/A 83630-XKJX SKIN LESIONS, 2 TO 4 05/09/2023 N/A O2258-MNKIAIJU DYSTROPHIC NAILS ANY # 05/09/2023 N/A 02334-PCBXUMG NAIL, 1-5 07/18/2023 N/A 46921-Zahcfkcw Plate 07/18/2023 N/A 65263-Ydvcyzaa Plate Each Additional 07/18/2023 N/A 21715-TNJB SKIN LESIONS, 2 TO 4 07/18/2023 N/A V6011-HYIVTQWA DYSTROPHIC NAILS ANY # 07/18/2023 N/A 14224-LFXJQXP NAIL, 1-5 09/30/2023 N/A 15314 I&D ABSCESS- SIMPLE,SINGLE 09/30/2023 N/A 93116-ESRR SKIN LESIONS, 2 TO 4 09/30/2023 N/A Q7027-NSMHGSRP DYSTROPHIC NAILS ANY # 09/30/2023 N/A 62277-HEJIJZN NAIL, 1-5 12/09/2023 N/A 34194-Hqilywho Plate 12/09/2023 N/A 33571-THQS SKIN LESIONS, 2 TO 4 12/09/2023 N/A U0075-OKMHIUJR DYSTROPHIC NAILS ANY # 12/09/2023 N/A 17515-SLNLIZG NAIL, 1-5 03/02/2024 N/A 63298-Rmyohpaq Plate 03/02/2024 N/A 17936-FEOR SKIN LESIONS, 2 TO 4 03/02/2024 N/A U0172-DKQAQBUM DYSTROPHIC NAILS ANY # 03/02/2024 N/A Encounters Encounter Location Date Provider Diagnosis [address] [address] 05/09/2023 Gorge Nath Type 2 diabetes mellitus with diabetic polyneuropathy E11.42 ; Tinea unguium B35.1 ; Ingrown nail L60.0 ; Other hammer toe(s) (acquired), right foot M20.41 and Other hammer toe(s) (acquired), left foot M20.[address] [address] 07/18/2023 Gorge Nath Type 2 diabetes mellitus with diabetic polyneuropathy E11.42 ; Tinea unguium B35.1 and Ingrown nail L60.[address] [address] 09/30/2023 Gorge Nath Type 2 diabetes mellitus with diabetic polyneuropathy E11.42 ; Tinea unguium B35.1 and Abscess of toe, left L02.[address] [address] 12/09/2023 Gorge Nath Type 2 diabetes mellitus with diabetic polyneuropathy E11.42 ; Tinea unguium B35.1 ; Other hammer toe(s) (acquired), right foot M20.41 ; Other hammer toe(s) (acquired), left foot M20.42 and Ingrown nail L60.[address] [address] 03/02/2024 Gorge Nath Type 2 diabetes mellitus with diabetic polyneuropathy E11.42 ; Tinea unguium B35.1 ; Ingrown nail L60.0 ; Pain in left foot M79.672 ; Plantar fasciitis of left foot M72.2 ; Calcaneal spur, left foot M77.32 ; Interstitial myositis of left foot M60.172 and Bursitis of left foot M77.[address] [facility] [address] [address] 09/16/2023 [facility] [address] 10/29/2023 [facility] [address] 10/29/2023 [facility] [address] [address] 2024 Gorge Nath Assessments Encounter Date Diagnosis (ICD Code) Assessment Notes Treatment Notes Treatment Clinical Notes Section Notes 05/09/2023 Tinea unguium (ICD-10 - B35.1) 05/09/2023 Type 2 diabetes mellitus with diabetic polyneuropathy (ICD-10 - E11.42) 09/30/2023 Tinea unguium (ICD-10 - B35.1) 09/30/2023 Type 2 diabetes mellitus with diabetic polyneuropathy (ICD-10 - E11.42) 07/18/2023 Tinea unguium (ICD-10 - B35.1) 07/18/2023 Type 2 diabetes mellitus with diabetic polyneuropathy (ICD-10 - E11.42) 12/09/2023 Tinea unguium (ICD-10 - B35.1) 12/09/2023 Type 2 diabetes mellitus with diabetic polyneuropathy (ICD-10 - E11.42) 03/02/2024 Type 2 diabetes mellitus with diabetic polyneuropathy (ICD-10 - E11.42) 03/02/2024 Tinea unguium (ICD-10 - B35.1) 03/02/2024 Ingrown nail (ICD-10 - L60.0) 07/18/2023 Ingrown nail (ICD-10 - L60.0) 09/30/2023 Abscess of toe, left (ICD-10 - L02.612) Patient Educated with: WOUND CARE INSTRUCTIONS. pdf (WOUND CARE INSTRUCTIONS. pdf) 12/09/2023 Other hammer toe(s) (acquired), right foot (ICD-10 - M20.41) Response to treatment,Impro vement 05/09/2023 Ingrown nail (ICD-10 - L60.0) 05/09/2023 Other hammer toe(s) (acquired), right foot (ICD-10 - M20.41) Patient Educated with: DIABETIC FOOT CARE INSTRUCTIONS. pdf (DIABETIC FOOT CARE INSTRUCTIONS. pdf) 12/09/2023 Other hammer toe(s) (acquired), left foot (ICD-10 - M20.42) Response to treatment,Impro vement 05/09/2023 Other hammer toe(s) (acquired), left foot (ICD-10 - M20.42) 12/09/2023 Ingrown nail (ICD-10 - L60.0) 03/02/2024 Pain [...] Bursitis of left foot (ICD-10 - M77.52) 09/30/2023 Other Plan Of Treatment Pending Test Test Name Order Date X ray : Foot, left 3V 03/02/2024 12248-JPQRELN NAIL, 1-5 03/02/2024 34171-LESZEET NAIL, 1-5 05/09/2023 83595-EPQZLSK NAIL, 1-5 07/18/2023 28644-OTBOBLB NAIL, 1-5 09/30/2023 94535-AJJDEUK NAIL, 1-5 12/09/2023 83740-Mvgfkmtt Plate 12/09/2023 34506-Jkhhyrwq Plate 07/18/2023 30707-Ljcwpviy Plate 05/09/2023 96992-Afweitgx Plate 03/02/2024 81995-Tjrvcjul Plate Each Additional 08/2023 70083 I&D ABSCESS- SIMPLE,SINGLE 024 52535-UFKX SKIN LESIONS, 2 TO 4 09/30/19 24 73330-NKTV SKIN LESIONS, 2 TO 4 12/09/19 24 99440-TTFZ SKIN LESIONS, 2 TO 4 07/18/19 54418-EZUO SKIN LESIONS, 2 TO 4 05/09/19 24 02504-ASQU SKIN LESIONS, 2 TO 4 03/02/20 24 W1948-ZHEYIXTV DYSTROPHIC NAILS ANY # M1956-CYUBRAMK DYSTROPHIC NAILS ANY # B0124-YRKOXXQF DYSTROPHIC NAILS ANY # V0602-GODWSMLB DYSTROPHIC NAILS ANY # G4433-FFVUPOCG DYSTROPHIC NAILS ANY # Next Appt Details Provider Name:Gorge Nath , 06/01/2024 02:00:00 PM, [address] [place], [address], Insurance Providers Payer Name Payer Address Payer Phone Subscriber Number Group Number Insured Name Patient Relationship to Insured Coverage Start Date Coverage End Date [employer] Claims [address] [address] [place] [address] [id number] Moo Dempsey Self - patient is the insured Medical (General) History Medical History History ICD Code Anxiety Arthritis Back,Hip,and Knee pain CAD (Cholesterol) covid-19 Diabetic Numbness Reflux ( GERD) Joint implants/screws Surgical History Surgery Date(Month/Year) knee surgery 2017 back surgery 1994 cyst removal from tailbone 1995
[2024-04-09 09:31] LABS: MANUAL DIFF FLAG NO
[2024-04-09 09:42] LABS: Basophils Absolute Auto 0.1 X10*3/uL (0.0-0.2); Basophils Percent Auto 0.6 % (0-2); Eosinophils Absolute Auto 0.3 X10*3/uL (0.0-0.4); Eosinophils Percent Auto 2.7 % (0-4); Hematocrit 44.5 % (42.0-52.0); Hemoglobin 14.5 g/dl (14.0-18.0); Imm Gran Abs Auto 0.04 X10*3/uL (0.00-0.03); Imm Gran Pct Auto 0.4 % (0.0-0.4); Lymphocytes Absolute Auto 3.1 X10*3/uL (1.2-4.9); Lymphocytes Percent Auto 30.6 % (20-40); Mean Corpuscular HGB Conc 32.6 g/dl (31.0-36.0); Mean Corpuscular Hemoglobin 28.9 pg (27.0-33.0); Mean Corpuscular Volume 88.6 fL (80.0-98.0); Mean Platelet Volume 10.9 fL (9.4-12.4); Monocytes Absolute Auto 0.6 X10*3/uL (0.1-1.2); Monocytes Percent Auto 5.6 % (2-11); Neutrophils Absolute Auto 6.2 x10*3/uL (2.0-8.3); Neutrophils Percent Auto 60.1 % (45-73); Platelet Count 255 X10*3/uL (160-400); Red Blood Count 5.02 X10*6/uL (4.60-5.80); White Blood Count 10.2 X10*3/uL (4.8-10.8)
[2024-04-09 10:11] LABS: Albumin Level 4.5 g/dL (3.5-5.0); Alkaline Phosphatase 138 U/L (39-117); Anion Gap 16 (12-20); Aspartate Amino Transferase 16 U/L (5-37); Bilirubin Total 0.3 mg/dL (0.0-1.0); Blood Urea Nitrogen 20 mg/dL (9-16); Calcium 9.6 mg/dL (8.4-10.2); Carbon Dioxide 23 mmol/L (22-29); Chloride 101 mmol/L (96-108); Estimated Glomerular Filt Rate 54; Glucose Random 243 mg/dL (60-115); Potassium 4.5 mmol/L (3.3-5.1); Sodium 135 mmol/L (135-145); Total Protein 7.8 g/dL (6.5-8.0)
[2024-04-09 10:23] LABS: Alanine Aminotransferase 26 U/L (0-40)
[2024-04-09 12:08] LABS: Estimated Average Glucose 278 mg/dL; Hemoglobin A1C 559.3311 umol/L; Hemoglobin A1c % 11.3 % (<6.0); Total Hemoglobin (HGBA1C) 5593.2491 umol/L
== END 2024-04-09 09:09 | disposition home or self-care (01) ==
LOC: HO.LAB 09:08
PROVIDERS: PCP Internal Medicine; Visit Provider Internal Medicine
DX: E11.22 Type 2 diabetes mellitus with diabetic chronic kidney disease (principal); I12.9 Hypertensive chronic kidney disease with stage 1 through stage 4 chronic kidney disease, or unspecified chronic kidney disease; N18.9 Chronic kidney disease, unspecified; K21.9 Gastro-esophageal reflux disease without esophagitis; M25.512 Pain in left shoulder
CPT/HCPCS: 36415; 71046; 80053; 83036; 85025

== ENCOUNTER 2024-04-29 09:26 | Outpatient (AMB) | payer OTHER, SELFPAY ==
--- NOTE | 2024-04-29 09:26 | MHC.OFFVIS ---
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 He has type 2 diabetes on insulin, hypertension, dyslipidemia and is also a smoker. Within limits of his activity, he does not have any clear-cut anginal-type chest pains. [facility] Medical History (Updated 04/29/24 @ 09:46 by Jair Quinn MD) Hyperlipidemia, unspecified Cervical myofascial pain syndrome Polyarthritis Frequent headaches HTN (hypertension) Diabetes mellitus, insulin dependent (IDDM), controlled Nicotine dependence, cigarettes, uncomplicated Surgical History History of partial knee replacement History of lumbar fusion History of left knee surgery History of back surgery Family History (Updated 04/29/24 @ 09:34 by Swetha Saenz CMA) Sister Heart attack Pacemaker Father Cancer Social History (Updated 04/29/24 @ 09:35 by Swetha Saenz CMA) Alcohol intake: current Alcohol intake frequency: holidays/special occasions only Patient Tobacco Use Status: Former Tobacco user Tobacco use type: Cigarette Cigarettes Per Day: 15 Years Smoked: 44 Review of Systems Const Denies chills, Denies fatigue, Denies fever(s), Denies frequent falls, Denies weakness, Denies weight gain and Denies weight loss ENT Denies dizziness Card Denies chest pain, Denies leg edema, Denies lightheadedness, Denies palpitations, Denies dyspnea, Denies dyspnea on exertion and Denies orthopnea Resp Denies cough, Denies dyspnea and Denies dyspnea on exertion GI Denies bloating and Denies change in bowel habits Musc Denies muscle weakness, Denies numbness and Denies tingling Neuro Denies dizziness, Denies frequent falls, Denies numbness, Denies tingling and Denies weakness Endo Denies fatigue and Denies palpitations Physical Exam Vital Signs: Last Vital Signs Pulse 87 04/29/24 09:27 BP 150/74 H 04/29/24 09:27 BMI result Body Mass Index 37.9 Const General: comfortable and no acute distress Orientation/consciousness: patient oriented x3 HEENT Other: Unremarkable Head: Yes normal to inspection Neck Neck: Yes normal visual inspection Chest Chest palpation & inspection: normal inspection of the chest Resp Auscultation: clear to auscultation bilaterally Cardio Palpation: normal PMI Heart sounds: S1 normal heart sound present, S2 normal heart sound present, no gallops, no murmurs and no rubs GI Palpation (GI): Soft to palpation Back/Spine/Pelvis Other: unremarkable Skin General skin exam: no rashes or lesions noted Neuro General: patient oriented x3 Extrem General: Yes normal to inspection Psych Mental Status: mental status grossly normal Office Procedures EKG Details: EKG with underlying sinus rhythm at 87/Min; no significant ST-T changes and otherwise unremarkable[place]. [address]-Fbgiiqfhlrewdtdcx, Complete Assessment & Plan Assessment & Plan (1) Type 2 diabetes mellitus with unspecified complications: Code(s): E11.8 - Type 2 diabetes mellitus with unspecified complications Category: Medical (2) HTN (hypertension): Code(s): I10 - Essential (primary) hypertension Category: Medical (3) Nicotine dependence, cigarettes, uncomplicated: Comment: (onset 15yo, 1ppd x 42yrs, now 3/4ppd, 40pyh) Code(s): F17.210 - Nicotine dependence, cigarettes, uncomplicated Category: Medical (4) Hyperlipidemia, unspecified: Code(s): E78.5 - Hyperlipidemia, unspecified Category: Medical Plan Multiple risk factors and also poorly controlled as the last hemoglobin A1c is 11.3. At high risk for cardiovascular events. We discussed about this today. Strongly advised him to quit smoking. We will do a comprehensive cardiovascular workup including echocardiogram, stress test and also get screening ultrasound of abdominal aorta for aneurysm. Follow-up after the above. Orders: Orders US abdominal aortic aneurysm Today I71.40 - Abdominal aortic aneurysm, without rupture, unspecified CA echo transthoracic complete Today I25.10 - Atherosclerotic heart disease of [place] coronary artery without angina pectoris CA stress test Today R07.2 - Precordial pain NM cardiolite stress test Today R07.2 - Precordial pain Coding Level of Care Code New Pt Level 4 (70358) Diagnoses Type 2 diabetes mellitus with unspecified complications E11.8 HTN (hypertension) I10 Nicotine dependence, cigarettes, uncomplicated F17.210 Hyperlipidemia, unspecified E78.5 CPT Codes EKG - CPT: 41210-Audsvoullyiziwmlv, Complete ([id number])
[2024-04-29 09:27] VITALS: BP 150/74; PULSE 87; BMI 37.9
== END 2024-04-29 09:51 | disposition home or self-care (01) ==
PROVIDERS: PCP Internal Medicine; Visit Provider Internal Medicine
DX: E11.8 Type 2 diabetes mellitus with unspecified complications (principal); I10 Essential (primary) hypertension; F17.210 Nicotine dependence, cigarettes, uncomplicated; E78.5 Hyperlipidemia, unspecified
CPT/HCPCS: 93010; 99204

== ENCOUNTER → 2024-04-29 09:26 | Outpatient (BNVA) | payer OTHER, SELFPAY | PROVIDERS: PCP Internal Medicine; Visit Provider Internal Medicine | DX: I10 Essential (primary) hypertension (principal); E78.5 Hyperlipidemia, unspecified; E11.8 Type 2 diabetes mellitus with unspecified complications; R07.2 Precordial pain; F17.210 Nicotine dependence, cigarettes, uncomplicated; Z79.4 Long term (current) use of insulin | CPT/HCPCS: 93005 ==

== ENCOUNTER → 2024-05-11 08:01 | Outpatient (REF) | payer OTHER, SELFPAY ==
--- NOTE | 2024-05-11 08:04 | CA_ITS ---
Transthoracic Echocardiogram Patient (Last, First, Middle): Moo Olson J Gender: Male Date of : 1960 Age: 64 Procedure Date: 05/11/2024 Procedure Type: Transthoracic Echocardiogram Location: OP Height: 165.1 cm Weight: 102.06 kg BSA: 2.08 m2 Heart Rate: bpm BP: 132 / 90 mmHg Advertising Dispatch Clerk: Referring MD: Jair Quinn MD Symptoms: I25.10 - Atherosclerotic heart disease of [place] coronary artery without... Study Quality: Fair ECG Rhythm: Sinus Conclusions: - The left ventricular systolic function is normal. The calculated ejection fraction is 63% by biplane method. - No obvious valvular pathology seen on this study. Findings Left Ventricle Normal left ventricular cavity size. There is mildly increased left ventricular wall thickness. The left ventricular systolic function is normal. The calculated ejection fraction is 63% by biplane method. There is no evidence of regional wall motion abnormalities. Diastolic function is normal for age. Right Ventricle Normal right ventricular cavity size and systolic function. Atria Both atria are normal in size. Aortic Valve The aortic valve was not well visualized. There is no aortic valve stenosis. There is trace (trivial) aortic valve regurgitation. Mitral Valve The mitral valve appears normal. There is no mitral valve regurgitation. There is no mitral valve stenosis. Pulmonic Valve The pulmonic valve is likely normal. Tricuspid Valve Normal tricuspid valve structure. There is trace tricuspid valve regurgitation. There is no evidence of pulmonary hypertension. Great Vessels The asc aorta is normal in size. Venous The inferior vena cava was not well visualized. The inferior vena cava is normal in size. Pericardium/Pleural There is no evidence of pericardial effusion. Prior Study Comparison No prior study available for comparison. Recommendations, Care & Conclusions No obvious valvular pathology seen on this study. Measurements 2D Linear Measurements IVSd: 1.08 0.6-0.9/0.6-1.0 cm LVIDd: 4.73 3.9-5.3/4.2-5.9 cm LVIDd Index: 2.27 2.4-3.2/2.2-3.1 cm/m2 LVIDs: 3.15 2.0-3.6 cm LVPWd: 1.05 0.7-1.1 cm Ao Root: 3.30 2.1-3.5 cm LA Diam: 3.70 2.7-3.8/3.0-4.0 cm LAIDs Index: 1.78 1.5-2.3 cm/m2 LV Mass: 225.69 67-162/88-224 g LV Mass Index: 108.50 43-95/49-115 g/m2 LVOT Diam: 2.10 3.0+(-)1.3 cm 2D Systolic Function EF 4C: 71.20 >55% EF 2C: 57.40 >55% EF BiP: 63.40 >55% Mitral Valve MV Pk E: 0.85 MV PK A: 1.08 MV Decel Time: 174.00 E/A: 0.80 E'Lateral: 8.70 E'Medial: 6.64 E/E' Med: 12.70 E/E' Lat: 9.70 PHT: 51.00 MVA PHT: 4.31 [place]: 4.86 Aortic Valve AoV Pk Aly: 1.61 AoV Mn Aly: 1.05 AoV VTI: 0.34 AoV Pk Grad: 10.00 Aov Mn Grad: 5.00 BETINA Cont.VTI: 2.56 LVOT LVOT Pk Aly: 1.13 LVOT Mn Aly: 0.76 LVOT VTI: 0.25 LVOT Pk Grad: 5.00 LVOT Mn Grad: 3.00 LVOT Diam: 2.10 LVOT Area: 3.46 Diastolic Function MV Pk E: 0.85 MV Pk A: 1.08 E/A: 0.80 E'Medial: 6.64 E/E' Med: 12.70 E' Laterial: 8.70 E/E' Lat: 9.70 Right Ventricle TAPSE (mm): 31.00 Tricuspid Valve TR Pk Aly: 2.24 TR Pk Grad: 20.00 RA Press: 3.00 RVSP: 23.00 Great Vessels Aorta Ao Root-2D: 3.30 2.0-3.7 cm Ao Asc: 3.30 2.1-3.4 cm Pulmonary Valve PV Pk Aly: 1.06 Peak PV Grad: 4.00 Updated in Other Vendor System with Status of Final Jair Quinn MD electronically signed on 05/13/2024 11:29:51 AM with status of Final
== END ==
LOC: HO.CARD 08:01
PROVIDERS: PCP Internal Medicine; Visit Provider Internal Medicine
DX: I25.10 Atherosclerotic heart disease of native coronary artery without angina pectoris (principal)
CPT/HCPCS: 93306

== ENCOUNTER 2024-05-25 08:01 | Outpatient (REF) | payer OTHER, SELFPAY | END 2024-05-25 08:02 | disposition home or self-care (01) | LOC: HO.US 08:01 | PROVIDERS: PCP Internal Medicine; Visit Provider Internal Medicine | DX: I71.40 Abdominal aortic aneurysm, without rupture, unspecified (principal) | CPT/HCPCS: 76775 ==

== ENCOUNTER → 2024-05-25 08:02 | Outpatient (BNV) | payer OTHER, SELFPAY | PROVIDERS: PCP Internal Medicine; Visit Provider Radiology Diagnostic Radiology | DX: I71.40 Abdominal aortic aneurysm, without rupture, unspecified (principal) | CPT/HCPCS: 76775 ==

== ENCOUNTER 2024-08-16 08:55 | Outpatient (AMB) | payer OTHER, SELFPAY ==
--- NOTE | 2024-08-16 09:17 | A.OFFPC_ITS ---
Vital Signs 08/16/24 09:18 Height 5 ft 5 in Weight 220 lb BMI 36.6 BP 130/80 Blood Pressure Location Lt brachial Position Sitting Pulse 90 Pulse Source Pulse Oximeter Temp 97.9 F Temp Source Axillary Pulse Oximetry (%) 97 Oxygen Delivery Method Room Air Intake Visit Reasons: Routine - see comments Television Audio Engineer Required: No Accompanied by: Self / Same As Patient Allergies No Known Allergies [No Known Allergies*] Allergy (Verified 08/16/24 09:40) Medication List - Last Reconciled 08/16/24 by Tushar Fang MD atorvastatin 20 mg PO DAILY dapagliflozin propanediol (Farxiga) 5 mg PO DAILY glipizide 10 mg PO BID insulin glargine (Lantus Solostar U-100 Insulin) 90 units (0.9 mL) subcut DAILY lisinopril mg PO DAILY metformin 500 mg PO BID omeprazole 20 mg PO DAILY oxycodone 10 mg PO QID PRN 28 days Tobacco use date assessed: 08/16/24 Fall risk assessment: No Falls in past year Last assessed Fall Risk: 08/16/24 Dental Screening Dental Screen Date: 08/16/24 Did you have a dental visit in the last 12 months?: Yes Did you have a dental problem in the last 6 months where you did not have access to dental care?: No [facility] Medical History (Updated 08/16/24 @ 09:42 by Tushar Fang MD) Chronic pain syndrome Hyperlipidemia, unspecified Cervical myofascial pain syndrome Polyarthritis Frequent headaches HTN (hypertension) Diabetes mellitus, insulin dependent (IDDM), controlled Nicotine dependence, cigarettes, uncomplicated Surgical History History of partial knee replacement History of lumbar fusion History of left knee surgery History of back surgery Family History Sister Heart attack Pacemaker Father Cancer Social History Housing: House Alcohol intake: current Alcohol intake frequency: holidays/special occasions only Patient Tobacco Use Status: Current everyday Tobacco user Tobacco use type: Cigarette Cigarettes Per Day: 15 Years Smoked: 44 e-Cigarette/Vaping Use: Currently Using service: No Current occupational status: retired Cognitive needs: No Hearing needs: No Vision needs: Yes (reading glasses) Questionnaire PHQ-9 Over the last 2 weeks, how often have you been bothered by any of the following problems? 1. Little interest or pleasure in doing things: not at all 2. Feeling down, depressed, or hopeless: not at all 3. Trouble falling or staying asleep, or sleeping too much: not at all 4. Feeling tired or having little energy: not at all 5. Poor appetite or overeating: not at all 6. Feeling bad about yourself - or that you are a failure or have let yourself or your family down: not at all 7. Trouble concentrating on things, such as reading the newspaper or watching television: not at all 8. Moving or speaking so slowly that other people could have noticed. Or the opposite - being so fidgety or restless that you have been moving around a lot more than usual: not at all 9. Thoughts that you would be better off or of hurting yourself in some way: not at all Total score: 0 Source: Developed by Drs. Lc Rose, Keisha Hall, Freeman Lyons and colleagues, with an educational leigha from [employer]. Thrive Questionnaire Currently or been in a relationship where the following occur: No concerns reported THRIVE Score: 0 AUDIT C Alcohol Use Questionnaire (AUDIT-C) 1. How often do you have a drink containing alcohol?: Never 3. How often do you have six or more drinks on one occasion?: Never Total Score: 0 LINCOLN-7 AMB Questionnaire LINCOLN-7 Date LINCOLN - 7 assessed: 08/16/24 Feeling nervous, anxious, or on edge: 0 = Not at all Not being able to stop or control worryin = Not at all Worrying too much about different things: 0 = Not at all Trouble relaxin = Not at all Being so restless that it is hard to sit still: 0 = Not at all Becoming easily annoyed or irritable: 0 = Not at all Feeling afraid as if something awful might happen: 0 = Not at all Total LINCOLN-7 score (0-4 normal; 5-9 mild; 10-14 moderate; 15-21 severe): 0 Source: Developed by Drs. Lc Rose, Keisha Hall, Freeman Lyons and colleagues, with an educational leigha from [employer]. Physical exam (Primary Care) Vital Signs: Last Vital Signs Temp 97.9 F 08/16/24 09:18 Pulse 90 08/16/24 09:18 BP 130/80 08/16/24 09:18 Pulse Ox 97 08/16/24 09:18 Oxygen Delivery Method Room Air 08/16/24 09:18 Care Plan Goal for BP management: BP in range BMI result Body Mass Index 36.6 BMI Assessment/Plan discussion: High (One pound per week weight loss) BMI High, discussed plan: lifestyle, weight reduction and dietary Tobacco/Smoking Status: Tobacco use Status Tobacco use date assessed 08/16/24 08/16/24 09:28 Patient Tobacco Use Status Current everyday Tobacco 08/16/24 09:28 Tobacco use type Cigarette 08/16/24 09:28 e-Cigarette/Vaping Use Currently Using 08/16/24 09:28 PHQ-9: PHQ-9 Score PHQ-9: Total score 0 08/16/24 09:28 Currently or been in a relationship where the following occur: No concerns reported Coding Level of Care Code New Pt Level 4 (20867) Complex EM visit Add On G2211 Diagnoses HTN (hypertension) I10 Type 2 diabetes mellitus with unspecified complications E11.8 Nicotine dependence, cigarettes, uncomplicated F17.210 Chronic pain syndrome G89.4 Assessment & Plan Assessment & Plan (1) HTN (hypertension): Code(s): I10 - Essential (primary) hypertension Category: Medical Plan: BP is in range. Continue meds at same dosage. (2) Type 2 diabetes mellitus with unspecified complications: Code(s): E11.8 - Type 2 diabetes mellitus with unspecified complications Category: Medical Plan: A1c is markedly elevated. Short acting insulin added to the regimen (3) Nicotine dependence, cigarettes, uncomplicated: Comment: (onset 15yo, 1ppd x 42yrs, now 3/4ppd, 40pyh) Code(s): F17.210 - Nicotine dependence, cigarettes, uncomplicated Category: Medical Plan: Counselling to quit smoking done. (4) Chronic pain syndrome: Code(s): G89.4 - Chronic pain syndrome Category: Medical Plan: Discussion on decreasing the oxycodone dosage. Patient is willing but not ready yet. Will discuss during the next 3 weeks. Plan History of Present Illness The patient is a 64-year-old male presenting with poorly controlled diabetes and chronic musculoskeletal pain associated with surgical history. He has a notable history of left groin pain which resolved over two months, and currently has urinary hesitancy. Chronic back pain persists due to spinal surgeries with talon insertions dating back to 1994. Pain is aggravated by standing. The patient is on a high regimen of oxycodone for pain management but acknowledges attempts to reduce intake, taking 112 pills monthly. He reports anxiety, especially during driving, previously managed with Clonidine, but is no longer on this medication. His surgical history includes a partial knee replacement in 2017, with ongoing pain. He has a history of declining further surgeries and experiences increased anxiety connected to his familial predisposition. 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 - Lives independently, no mention of family support. - Reports anxiety affecting driving which resulted from familial nervous predisposition. - Chronic pain impacts lifestyle but resists further surgery. Review of Systems - Constitutional: Denies current weight changes, fatigue. - Musculoskeletal: Reports chronic back pain, knee pain; resolved groin pain. - Genitourinary: Reports difficulty initiating urination. - Psychological: Reports anxiety. - Endocrine: Reports unspecified poor appetite in the past. Physical Exam General: Cooperative and healthy appearing Nutritional Appearance: Well nourished Orientation/consciousness: Patient oriented x3 Limitations: No limitations Head: Normal to inspection General: Appearance normal, both eyes and all related structures Neck: Normal visual inspection Chest: Normal palpation of entire chest wall Respiratory: Normal respiratory effort Neurology: Patient oriented x3 Results - Labs: Hemoglobin A1c at 11.3% Plan 1. Diabetes Mellitus, Poorly Controlled - Initiated short-acting insulin. - Schedule follow-up to reassess management. 2. Chronic Back Pain - Plan to reduce oxycodone dosage. - Explore alternative therapies. 3. Anxiety - Referral for behavioral therapy. - Discuss long-acting medication options. 4. Partial Knee Replacement Pain - Discuss conservative management. - Respect patient's decision against surgery. 5. Difficulty In Urination - Planned prostate evaluation. Discussion Notes During the visit, I discussed with the patient the need for a new approach in managing his poorly controlled diabetes, including introducing short-acting insulin. Emphasizing proper injection timing with meals, I scheduled a follow-up in three weeks to reassess his glucose levels and response to treatment. The excessive oxycodone use for chronic back pain requires a strategy to gradually reduce intake, acknowledging alternative pain management tactics to explore in subsequent visits. For anxiety, a referral to behavioral therapy was made, including discussions about potential long-acting medications. Knee pain management will remain conservative at the patient's preference, respecting his choice against further surgical interventions. I addressed his current urinary difficulty, planning a comprehensive evaluation of his prostate health. I also confirmed that lines of communication with his pharmacy concerning medication refills and prescriptions will be clarified. Patient Instructions - Begin new insulin regimen, inject at each meal. - Check blood sugars regularly and record results. - Plan to reduce oxycodone dosage gradually. - Attend referred behavioral therapy sessions. - Return in three weeks for follow-up assessment. - Report any new or worsening symptoms promptly. Orders: Orders Lipid Panel Today E11.8 - Type 2 diabetes mellitus with unspecified complications, F17.210 - Nicotine dependence, cigarettes, uncomplicated, G89.4 - Chronic pain syndrome, I10 - Essential (primary) hypertension UA and rflx microscopic Today E11.8 - Type 2 diabetes mellitus with unspecified complications, F17.210 - Nicotine dependence, cigarettes, uncomplicated, G89.4 - Chronic pain syndrome, I10 - Essential (primary) hypertension Hemoglobin A1c Today E11.8 - Type 2 diabetes mellitus with unspecified complications, F17.210 - Nicotine dependence, cigarettes, uncomplicated, G89.4 - Chronic pain syndrome, I10 - Essential (primary) hypertension Microalbumin, Random (w Creat) Today E11.8 - Type 2 diabetes mellitus with unspecified complications, F17.210 - Nicotine dependence, cigarettes, uncomplicated, G89.4 - Chronic pain syndrome, I10 - Essential (primary) hypertension Basic Metabolic Panel Today E11.8 - Type 2 diabetes mellitus with unspecified complications, F17.210 - Nicotine dependence, cigarettes, uncomplicated, G89.4 - Chronic pain syndrome, I10 - Essential (primary) hypertension Complete Blood Count no Diff Today E11.8 - Type 2 diabetes mellitus with unspecified complications, F17.210 - Nicotine dependence, cigarettes, uncomplicated, G89.4 - Chronic pain syndrome, I10 - Essential (primary) hypertension Liver Panel Today E11.8 - Type 2 diabetes mellitus with unspecified complications, F17.210 - Nicotine dependence, cigarettes, uncomplicated, G89.4 - Chronic pain syndrome, I10 - Essential (primary) hypertension Thyroid Stimulating Hormone Today E11.8 - Type 2 diabetes mellitus with unspecified complications, F17.210 - Nicotine dependence, cigarettes, uncomplicated, G89.4 - Chronic pain syndrome, I10 - Essential (primary) hypertension
[2024-08-16 09:18] VITALS: BP 130/80; PULSE 90; TEMP 36.6; O2SAT 97; BMI 36.6
--- OUTSIDE RECORDS SUMMARY | 2024-08-16 09:26 | XMS_ITS | Encounter Summary ---
Author Organization [employer] Address [address] [facility] [address] [place] [address] Care Team Providers Care Sole Buffer Name Role Phone Unavailable Primary Care Provider Unavailabl e Reason for Visit * Reason Onset Date Comments rs no show appt 04/22/2024 Encounter Details Date Type Department Care Team (Late st Contact Info) Description 04/22/2024 Telephone C ADULT DENTAL [address] [place], [place] [phone] George Noel DDS [address] [place], [place] [phone] rs no show appt Social History Tobacco Use Types Packs/Day Years Used Date Smoking Tobacco: Former Cigarettes 0.3 0.5 Passive Smoke Exposure: Never Smokeless Tobacco: Former Alcohol Use Standard Drinks/Week Comments Never 0 (1 standard drink = 0.6 oz pur e alcohol) Sex and Gender Information Value Date Recorded Sex Assigned at Male 02/11/2022 10:15 AM EDT Legal Sex Male 10:15 AM EDT Gender Identity Male 04/22/2022 9:19 AM EST Sexual Orientation Choose not to disclose 2022 9:19 AM EST documented as of this encounter Miscellaneous Notes * Telephone Encounter - Kanika Gabriel - 04/22/2024 8:06 AM EST Patient called in looking to reschedule appt he missed yesterday 04/21 due mistaking the time. Informed patint that after a no show visit there is a waiting period and office will call to rs appt. Beena bogdan to patient attention that he does have an appt on 05/18 with the same provider that was milo posadas to see him on 04/21 and importance of not missing visit due to no show waiting period. documented in this encounter Plan of Treatment Upcoming Encounters Date Type Department Care Team (Late st Contact Info) Description 08/24/2024 3:00 PM EDT Office Visit [facility] ADULT DENTAL [address] [place] [address] George Noel DDS [address] [place] [address] documented as of this encounter Visit Diagnoses Not on filedocumented in this encounter
--- OUTSIDE RECORDS SUMMARY | 2024-08-16 09:26 | XMS_ITS | Encounter Summary ---
Author Organization [facility] [employer] Address [address] [facility] [address] [place] [address] Care Team Providers Care Computer Drafter Name Role Phone Unavailable Primary Care Provider Unavailabl e Encounter Details Date Type Department Care Team (Late st Contact Info) Description 06/13/2022 Abstract [facility] ADULT DENTAL [address] [place] [address] George Noel DDS [address] [place], [place] Social History Tobacco Use Types Packs/Day Years [...] not to disclose 2022 9:19 AM EST COVID-19 Exposure Response Date Recorded In the last 10 days, have yo u been in contact with someone who was confirmed or suspected to have Coronavirus/COVID-19? No / Unsure 05/29/2022 10:31 AM EST documented as of this encounter Plan of Treatment Upcoming Encounters Date Type Department Care Team (Late st Contact Info) Description 08/24/2024 3:00 PM EDT Office Visit [facility] ADULT DENTAL [address] [place] [address] George Noel DDS [address] [place] [address] documented as of this encounter Visit Diagnoses Not on filedocumented in this encounter
--- OUTSIDE RECORDS SUMMARY | 2024-08-16 09:26 | XMS_ITS ---
Author Organization [facility] Address [address] [place] [id number] Care Team Providers Care Legal Service Specialist Name Role Phone Jj Douglas MD Primary Care Provider Gorge Albarado [phone] REASON FOR VISIT boot Encounters Encounter Location Date Provider Diagnosis [address] [id number] 2024 Gorge Nath Plan Of Treatment Next Appt Details Provider Name:Gorge Nath , 09/07/2024 08:45:00 AM, [address] [place] [address], [phone], Progress Notes * Moo OLSON JrDOB:1 06/03/1959 (64 yo M)Acc No.[id number] Patient:?Arcadio OLSON Jr :1960???Age:64 Y???Sex:Male Address:[address] [place] [id number] * true * Date:? Generated for Printi ng/Falakshmig/eTransmitting on:?08/16/2024 09:26 AM EDT
--- OUTSIDE RECORDS SUMMARY | 2024-08-16 09:26 | XMS_ITS | Encounter Summary ---
Author Organization [facility] [employer] Address [address] [facility] [address] [place] [address] Care Team Providers Care Project Technician Name Role Phone Unavailable Primary Care Provider Unavailabl e Encounter Details Date Type Department Care Team (Late st Contact Info) Description 10/07/2022 Abstract [facility] ADULT DENTAL [address] [place] [address] George Noel DDS [address] [place] [address] Social History Tobacco Use Types Packs/Day Years [...] suspected to have Coronavirus/COVID-19? No / Unsure 10/04/2022 7:49 AM EDT documented as of this encounter Plan of Treatment Upcoming Encounters Date Type Department Care Team (Late st Contact Info) Description 08/24/2024 3:00 PM EDT Office Visit [facility] ADULT DENTAL [address] [place] [address] George Noel DDS [address] [place] [address] documented as of this encounter Visit Diagnoses Not on filedocumented in this encounter
--- OUTSIDE RECORDS SUMMARY | 2024-08-16 09:26 | XMS_ITS ---
Author Organization [facility] Address [address] [place] [address] Care Team Providers Care Director Of Quality Name Role Phone Jj Douglas MD Primary Care Provider Gorge Albarado Unavailable [phone] Allergies No Known Allergies REASON FOR VISIT At Risk Footcare, Heel pain, Ingrown Nail Medications Medication SIG (Take, Route, Frequency, Duration) Notes Start Date End Date Status Night Splint AFO - L1930 1 wear at rest for 30 days Active Omeprazole 20 MG 1 capsule 30 [...] (M20.41,M20.42), Preulcerative Skin Lesion(s) (L85.1 05/09/2023 Active Gabapentin 300 MG 1 capsule Orally Onc e a day Active metFORMIN HCl 500 MG 1 tablet with a brayan l Orally Once a day Active glipiZIDE 10 MG 1 tablet 30 minutes before breakfast Orally Once a day Active oxyCODONE HCl 10 MG 1 tablet as needed O rally every 6 hrs Active Social History Tobacco Use: Social History Observation Description Date Details (start date - stop date) Current Smoker 05/15/1984 - NA Tobacco use other than smoking: Question Answer Notes Are you an other tobacco user? No Tobacco Control (Standard) Question Answer Notes Tobacco use: Current smoker When did you start smoking? 05/15/1984 How many cigarettes a day do you smoke? 6-10 How soon after you wake up d o you smoke your first cigarette? 6-30 minutes Are you interested in quitting? Thinking about q uitting Additional Findings: Tobacco user Modera te cigarette smoker (10-19 cigs/day) AUDIT-C (Standard) Question Answer Notes Did you have a drink containing alcohol in the p ast year? No Points 0 Interpretation Negative Vital Signs Height 5ft5in in 06/01/2024 Weight 228 lbs 06/01/2024 BMI 37.94 kg/m2 06/01/2024 Blood pressure systolic 120 mm Hg 06/01/19 25 Blood pressure diastolic 80 mm Hg 025 Procedures Procedure Date Ordered Date Performed Result Body Sit e 92104-BNINWWU NAIL, 1-5 06/01/2024 N/A 66032-Rvpumdet Plate 06/01/2024 N/A 27716-AYSJ SKIN LESIONS, 2 TO 4 06/01/2024 N/A G9700-QAHXKHUM DYSTROPHIC NAILS ANY # 06/01/2024 N/A Encounters Encounter Location Date Provider Diagnosis [facility] [address] [place] [address] 06/01/2024 Gorge Nath Type 2 diabetes mellitus with diabetic polyneuropathy E11.42 ; Tinea unguium B35.1 ; Plantar fasciitis of left foot M72.2 and Ingrown nail L60.0 Assessments Encounter Date Diagnosis (ICD Code) Assessment Notes Treatment Notes Treatment Clinical Notes Section Notes 06/01/2024 Type 2 diabetes mellitus with diabetic polyneuropathy (ICD-10 - E11.42) 06/01/2024 Tinea unguium (ICD-10 - B35.1) 06/01/2024 Plantar fasciitis of left foot (ICD-10 - M72.2) 06/01/2024 Ingrown nail (ICD-10 - L60.0) Plan Of Treatment Pending Test Test Name Order Date 38552-VALQUZK NAIL, 1-5 06/01/2024 41129-Uroqgwnu Plate 06/01/2024 38015-TCEH SKIN LESIONS, 2 TO 4 06/01/19 25 E6218-LAOYWWQN DYSTROPHIC NAILS ANY # 02 / Next Appt Details Follow Up: 2 Months, Reason: Provider Name:Gorge Nath , 09/07/2024 08:45:00 AM, [address] [place] [address], [phone], Procedure Notes * Category Sub-Category Detail Notes [...] Motrin was recommended for pain or discomfort (61182), DIABETES: Pt was advised as to the risk of delayed or nonhealing due to diabetes. Pt is to call the office with any questions, concerns, or complications Anesthesia was deferred - NEURO FRANCISCO JAVIER: patient has medically documented neuropathic condition affecting sensation Location Medial nail border, T1 Keratoma Treatment Parring or Cutting o f Benign Hyperkeratotic Lesion(s) (-56) 2-4 Lesions - Due to the at risk nature of the patients medical condition as documented in the exam findings, performance of this keratoderma treatment is medically necessary as its management by an unskilled/untrained nonprofessional would put this patients foot and overall health at risk. Therefore, the benign hyperkeratotic lesions, ( 2 ) in total, locations as stated and described in the exam ( Plantar, Heel(s) , B/L ), were pared, and/or cut utilizing a sterile 15 blade, tissue nippers, and/or power dremel instrumentation by the physician of record - 45006 Debride Nails 1-5 Procedure: Due to the cli nical pathology outlined in the exam findings, performance of this nail treatment is medically necessary as its management by an unskilled/untrained nonprofessional would put this patients foot and overall health at risk. Therefore, debridement to affected nail(s), as described in exam ( TA, T5 ), was performed exclusively by the physician of record to reduce/remove overall nail length, girth, thickness, subungual debris, and necrotic tissue, by manual and/or electrical means through the use of a nail nipper and/or dremel stylegrinder, to a more viable healthy nail plate or bed tissue 5 nails or fewer in number. Silver nitrate was used for any petechial bleeding as necessary. Definitive antifungal treatment options, both pharmaceutical and surgical, have been reviewed and discussed with the patient. The patient solely prefers the use of intermittent/as needed professional debridement services for their nail condition and understands that additional periodic treatments may be required as necessary to maintain effective symptomatic relief - 66717 Nail Reduction Nail Reduction (-27) Trimming o f all dystrophic nails - Due to the at risk nature of the patients medical condition as documented in the exam findings, performance of this nail treatment is medically necessary as its management by an unskilled/untrained nonprofessional would put this patients foot and overall health at risk. Therefore, the dystrophic nails, in locations as stated and described in the exam ( T1, T2, T3, T4, T6, T7, T8, T9 ), were debrided by the phisician of record to reduce/remove overall nail length and girth, by manual and electrical means with use of a nail nipper and/or dremel, to more viable healthy nail plate or bed tissue - G0127 Progress Notes * Moo OLSON JrDOB:1 06/03/1959 (64 yo M)Acc No.[id number]:06/01/2024 Progress Note Patient:?Arcadio OLSON Jr Provider:?Gorge Nath DPM :1960???Age:64 Y???Sex:Male Dwayne e:06/01/2024 Address:[address] [place] [address] Pcp:Jj Douglas MD Subjective: * Chief Complaints: * ???At Risk FootcareHeel pain Ingrown Nail * HPI: ???At Risk footcare:?Pt States Last PCP Visit:?Date?04/08/2024 ???Heel pain:?Location:?Proximal plantar aspect of Heel, LEFT.?Treatments:?rest/alter normal daily activity, change in shoes, innersoles, medication ( oral anti-inflammatories,tylenol, also has oxycodone at home), stretching, AFO-nightsplint.? * ROS:?General/Constitutional:?Nausea?denies.?Vomiting?denies.?Hunger Thirst?denies.?Loss appetite?denies.?Chills?denies.?Fatigue?denies.?Fever?denies.?Night Sweats?denies.?Unexplained weight loss?denies.?Unexplained weight gain?denies.?HEENTM:?Dentures?admits.?Dizziness?denies.?Glasses/contacts?admits.?Retinopathy?den ies.?Blurred/double vision?denies.?TMJ?denies.?Discharge/drainage?denies.?Implants?denies.?Sore throat?denies.?Dental implants?denies.?Hard of hearing ?denies.?Difficulty chewing/swallowing/speaking?denies.?Nose bleeds?denies.?Sore mouth?denies.?Respiratory:?On O xygen?denies.?Pneumonia/pleurisy?denies.?Bronchitis?denies.?Emphysema?denies.?Co ughing?denies.?Cough blood?denies.?Shortness of breath?denies.?Wheezing?denies.?Cardiovascular:?Pacemaker?denies.?MVP?denies.?WPW?denies.?CHF?denies.?Heart attack?denies.?Septal defect?denies.?Rapid beat?denies.?Chest pain ?denies.?Atrial Fib.?denies.?Murmur/Palpitations?denies.?Gastrointestinal:?Hemorrhoids?denies.?Stomach/Abdominal pain?denies.?Dark blood stool?denies.?Irritable bowel ?denies.?Constipation?denies.?Diarrhea?denies.?Hematology:?Swelling?denies.?Clots?denies.?Varicose Veins?denies.?Bruising?denies.?Bleeding problem?denies.?Genitourinary:?Blood urine?denies.?Frequent/Painfu/urination/bladder control?denies.?Kidney stones?denies.?Infection (UTI)?denies.?Nephropathy?admits.?sex trans dis (STD)?denies.?Prostate?denies.?Musculoskeletal:?Hammertoes?admits.?Bunions?denies.?Back Pain?admits.?Muscle Cramps/ Resting?denies.?Muscle cramps / walking?denies.?Generalized aches and pains?admits.?Weakness?denies.?Integ.:?Schwab?denies.?Scars?denies.?Corns/calluses?admits.?Ingrown nails?admits.?Painful nails?denies.?Open Sores?denies.?Rashes?denies.?Neurologic:?Difficulty sleeping?denies.?Brain disorder?denies.?Numbness?admits.?Balance t rouble?denies.?Confusion?denies.?Fainting/blackouts?denies.?Tingling?admits.?Roly mors?denies.? * Medical History:? * Surgical History:?knee surge ry 2017back surgery 1995cyst removal from [facility] 1995 * Hospitalization/Major Diagno stic Procedure:?Denies Past Hospitalization * Family History:?Mother: unkn own.?Father: unknown, diagnosed with Other malignant neoplasm of unspecified site.? * Social History:?Tobacco Use:?Tobacco use other than smoking?Are you an other tobacco user??No ?Tobacco Control (Standard)?Tobacco use:?Current smoker ?When did you start smoking??05/15/1984 ?How many cigarettes a day do you smoke??6-10 ?How soon after you wake up do you smoke your first cigarette??6-30 minutes ?Are you interested in quitting??Thinking about quitting ?Additional Findings: Tobacco user?Moderate cigarette smoker (10-19 cigs/day) ???Drugs/Alcohol:?Drugs?Have you used drugs other than those for medical reasons in the past 12 months??No ???Miscellaneous:?Caffeine: yes, frequency:. ?Children: yes. ?Exercise: no. ?Marital status: single. ?Occupation: Retired. ???Drug/Alcohol:?AUDIT-C (Standard)?Did you have a drink containing alcohol in the past year??No ?Points?0 ?Interpretation?Negative * Medications:?TakingLantus So loStar 100 UNIT/ML Solution [...] Foot Deformity (M20.41,M20.42), Preulcerative Skin Lesion(s) (L85.1 Night Splint AFO - L1930 1 wear at rest Medication List reviewed and reconciled with the patientTaking Lantus SoloStar 100 UNIT/ML Solution Pen-injector as directed Subcutaneous Taking Atorvastatin Calcium 20 [...] Foot Deformity (M20.41,M20.42), Preulcerative Skin Lesion(s) (L85.1 Taking Night Splint AFO - L1930 1 wear at rest Medication List reviewed and reconciled with the patient * Allergies:?N.K.D.A.yes[Aller gies Verified] Objective: * Vitals:?Ht:5ft5in, Wt:228, B OH:37.94, Shoe size:10, BP:120/80mm Hg, BS:not taken, Ht-cm: 165.1 cm, Wt-k.42 kg. * ???Past Orders: ???Lab:HEMOGLOBIN A1C (GLYCO HEMOGLOBIN) (Order Date - 06/01/2024) (Collection Date & Time - 06/01/2024 02:12 PM) ? Value Reference Range ?HEMOGLOBIN A1C % (HH) 7.0 * Examination: ???Ophthalmology Referral: ?DIABETES EYE EXAM?Procedure Performed:?Yes ?Date of Exam Performed?12/25/2023 ?Diabetic Retinopathy Screening:?Yes ?Retinal Screening Performed:?Yes ?Findings of Diabetic Eye Exam:?no retinopathy?Neurological: ?SENSORY:?Neurological exam demonstrates, reduced light touch sensation, reduced sharp/dull discrimination , reduced vibration sensation, in a stocking fashion, B/L, 5.07 monofilament test performed at plantar aspects of 5 varied sites per foot shows sensation, reduced, B/L?.?Nails: ?NAILS are:?Elongated, overgrown, dystrophic, lytic, greater than 3mm thick, discolored and friable with crumbly malodorous subungual debris , TA , T5, all other nails not described with characteristics as possessing mycosis are elongated, overgrown, and dystrophic (?T1, T2, T3, T4, T6, T7, T8, T9?).?Dermatologic: ?SKIN FINDINGS:?Skin exam reveals Keratotic lesion(s) located at , Plantar, Heel(s) , B/L.?Ingrown Nail: ?INSPECTION:?Reveals nail incurvation, dull pain on palpation due to neuropathy, groove hypertrophy, Medial nail border, T1.?Heel Pain: ?INSPECTION:?Approximately 80 percent LESS, Pain on Palpation to Plantar Fascia med. and central bands, intrinsic musc., infra-calcaneal bursa, and med calc tubercle , LEFT foot.?General Examination: ?GENERAL APPEARANCE:?Reveals a pleasant, alert, well nourished, well- developed, well hydrated individual, who demonstrates proper attention to hygiene/body habitus, and is in no acute distress, Pt serves as own historian for office visit today.?ORIENTED:?person, place, and time.?FOOT EXAM:?Lower Extremity Neurological Exam performed:?Yes ?Visual exam of foot performed:?Yes ?Date?06/01/2024??? Assessment: * Assessment: 1.?Tinea unguium - B35.1???2 .?Type 2 diabetes mellitus with diabetic polyneuropathy - E11.42 (Primary)???3.?Plantar fasciitis of left foot - M72.2???Specify :Acute problem, Stable Response to treatment - Improvement???4.?Ingrown nail - L60.0???Specify :Medial nail border,?T1??? Plan: * Treatment: 2.?Ingrown nail?Procedure: 05894-Itfcjqzo Plate * Procedures:?Debride Nails 1-5:?Procedure:?Due to the clinical pathology outlined in the exam findings, performance of this nail treatment is medically necessary as its management by an unskilled/untrained nonprofessional would put this patients foot and overall health at risk. Therefore, debridement to affected nail(s), as described in exam ( TA, T5 ), was performed exclusively by the physician of record to reduce/remove overall nail length, girth, thickness, subungual debris, and necrotic tissue, by manual and/or electrical means through the use of a nail nipper and/or dremel stylegrinder, to a more viable healthy nail plate or bed tissue 5 nails or fewer in number. Silver nitrate was used for any petechial bleeding as necessary. Definitive antifungal treatment options, both pharmaceutical and surgical, have been reviewed and discussed with the patient. The patient solely prefers the use of intermittent/as needed professional debridement services for their nail condition and understands that additional periodic treatments may be required as necessary to maintain effective symptomatic relief - 53245.?Keratoma Treatment:?Parring or Cutting of Benign Hyperkeratotic Lesion(s)?(-56) 2-4 Lesions - Due to the at risk nature of the patients medical condition as documented in the exam findings, performance of this keratoderma treatment is medically necessary as its management by an unskilled/untrained nonprofessional would put this patients foot and overall health at risk. Therefore, the benign hyperkeratotic lesions, ( 2 ) in total, locations as stated and described in the exam (?Plantar,?Heel(s)?,?B/L?), were pared, and/or cut utilizing a sterile 15 blade, tissue nippers, and/or power dremel instrumentation by the physician of record - 23629.?Nail Avulsion:?Location?Medial nail border,?T1.?Anesthesia?was deferred - NEUROPATHY: patient has medically documented [...] Motrin was recommended for pain or discomfort (74256), DIABETES: Pt was advised as to the risk of delayed or nonhealing due to diabetes. Pt is to call the office with any questions, concerns, or complications.?Nail Reduction:?Nail Reduction?(-27) Trimming of all dystrophic nails - Due to the at risk nature of the patients medical condition as documented in the exam findings, performance of this nail treatment is medically necessary as its management by an unskilled/untrained nonprofessional would put this patients foot and overall health at risk. Therefore, the dystrophic nails, in locations as stated and described in the exam (?T1, T2, T3, T4,?T6, T7, T8, T9?), were debrided by the phisician of record to reduce/remove overall nail length and girth, by manual and electrical means with use of a nail nipper and/or dremel, to more viable healthy nail plate or bed tissue - G0127.? * Procedure Codes:?G0127 ELISABETH ING DYSTROPHIC NAILS ANY #, Modifiers: XS 85949 Avulsion Plate, Modifiers: XS , [id number] DEBRIDE NAIL, 1-5, Modifiers: XS 18209 TRIM SKIN LESIONS, 2 TO 4, Modifiers: XS * Preventive Medicine:? ??Counseling:?Tobacco use:?Patient counseled on the dangers of smoking and urged to quit:?06/01/2024 ?Discussion:?-13: Office or other outpatient visit for the [...] encouraged the patient to call the office.?Heel pain:?Discussed other tx options for the patients condition, Given recent successful results to treatment, the patient wishes to continue with the present plan for their condition.? ??Screening/Special Tests:?Fall Risk?Screening:?No falls in the past year ?FALLS: Screening for Future Fall Risk?Have you had any falls with injury in the past year??No * Follow Up:?2 Months * Images: * Sign off status: Completed true * Provider:?Gorge Nath DPM Date:?2024 Generated for Rodrigo anthony/Davey/Yarely on:?08/16/2024 09:26 AM EDT History and Physical Notes * HPI (History of Present Illness) Category Sub-Category Detail Notes Category Not es Heel pain Location: Proximal plantar aspect of H eel, LEFT Treatments: rest/alter normal da delta activity, change in shoes, innersoles, medication ( oral anti-inflammatories,tylenol, also has oxycodone at home), stretching, AFO-nightsplint At Risk footcare Pt States Last PCP Visit: Date: 4 Examination Category Sub-Category Detail Notes Category Not es Ingrown Nail INSPECTION: Reveals nail inc urvation, dull pain on palpation due to neuropathy, groove hypertrophy, Medial nail border, T1 Neurological SENSORY: Neurological exa m demonstrates, reduced light touch sensation, reduced sharp/dull discrimination , reduced vibration sensation, in a stocking fashion, B/L, 5.07 monofilament test performed at plantar aspects of 5 varied sites per foot shows sensation, reduced, B/L Dermatologic SKIN FINDINGS: Skin exam reveal s Keratotic lesion(s) located at , Plantar, Heel(s) , B/L General Examination GENERAL APPEARANCE: Reveals a pleasant, alert, well nourished, well-developed, well hydrated individual, who demonstrates proper attention to hygiene/body habitus, and is in no acute distress, Pt serves as own historian for office visit today FOOT EXAM: Lower Extremity Neurological Exa m performed:: Yes Visual exam of foot performed:: Yes Date: 06/01/2024 ORIENTED: person, place, and t mynor Ophthalmology Referral DIABETES EYE EXAM Procedure Perform ed:: Yes ?Date of Exam Performed: 12/25/2023 Diabetic Retinopathy Screening:: Yes Retinal Screening Performed:: Yes Findings of Diabetic Eye Exam:: no retin opathy Nails NAILS are: Elongated, overg rown, dystrophic, lytic, greater than 3mm thick, discolored and friable with crumbly malodorous subungual debris , TA , T5, all other nails not described with characteristics as possessing mycosis are elongated, overgrown, and dystrophic ( T1, T2, T3, T4, T6, T7, T8, T9 ) Heel Pain INSPECTION: Approximately 80 percent LESS, Pain on Palpation to Plantar Fascia med. and central bands, intrinsic musc., infra-calcaneal bursa, and med calc tubercle , LEFT foot
--- OUTSIDE RECORDS SUMMARY | 2024-08-16 09:26 | XMS_ITS ---
Author Organization [facility] Address [address] [place] [address] Care Team Providers Care Dietetic Tech Name Role Phone Jj Douglas MD Primary Care Provider Gorge Albarado Unavailable [phone] Allergies No Known Allergies REASON FOR VISIT [...] user? No Vital Signs Height 5ft5in in 03/02/2024 Weight 228 lbs 03/02/2024 BMI 37.94 kg/m2 03/02/2024 Procedures Procedure Date Ordered Date Performed Result Body Sit e 13444-IVQBOEL NAIL, 1-5 03/02/2024 N/A 87038-Szotxltc Plate 03/02/2024 N/A 79702-HUCJ SKIN LESIONS, 2 TO 4 03/02/2024 N/A I6689-VYHHLMKE DYSTROPHIC NAILS ANY # 03/02/2024 N/A Encounters Encounter Location Date Provider Diagnosis [facility] [place] [address] [place] [address] 03/02/2024 Gorge Nath Type 2 diabetes mellitus [...] X ray : Foot, left 3V 03/02/2024 96195-PTLFUMF NAIL, 1-5 03/02/2024 28350-Vfikecoz Plate 03/02/2024 53706-KPXC SKIN LESIONS, 2 TO 4 03/02/20 24 L8811-NSKZBGIM DYSTROPHIC NAILS ANY # Next Appt Details Follow Up: 2 Months, Reason: Provider Name:Gorge Nath , 09/07/2024 08:45:00 AM, [address] [place] [address], [phone], Procedure Notes * Category Sub-Category Detail Notes [...] Motrin was recommended for pain or discomfort (50509) , DIABETES: Pt was advised as to [...] 15 blade, tissue nippers, and/or dremel - 90723 Debride Nails 1-5 Procedure: Performance of this nail treatment by a nonprofessional would put this patients foot and overall health at risk. Therefore, debridement to affected nail(s), as described in exam, was performed extensively to reduce/remove overall nail length, girth, thickness, subungual debris, and necrotic tissue, by manual and/or electrical means through the use of a nail nipper and/or dremel-type precision lens grinder apprentice, to a more viable healthy nail plate or bed tissue 1-5. Silver nitrate used for any petechial bleeding as necessary. Definitive antifungal treatment options have been reviewed and discussed with the patient. The patient chooses, no pharmaceutical tx - 16546 Nail Reduction Nail Reduction (-27) Trimming o f dystrophic nails, as described in exam, was performed to reduce/remove overall nail length and girth, by manual and electrical means with use of a nail nipper and/or dremel, to more viable healthy nail plate or bed tissue, any number - G0127 Progress Notes * Moo OLSON JrDOB:1 06/03/1959 (63 yo M)Acc No.[id number]:03/02/2024 Progress Note Patient:?Arcadio OLSON Jr Provider:?Gorge Nath DPM :1960???Age:63 Y???Sex:Male Dwayne e:03/02/2024 Address:[address] [place], [place] [id number] Pcp:Jj Douglas MD Subjective: * Chief Complaints: [...] surge ry 2017back surgery 1995cyst removal from [facility] 1995 * Hospitalization/Major Diagno stic Procedure:?Denies [...] Ankle(s).?CLAUDICATION(C):?denies, B/L.?REST PAIN:?denies, B/L.?Ophthalmology Referral: ?DIABETES EYE EXAM?Diabetic Retinopathy Screening:?Yes ?Retinal Screening Performed:?Yes ?Findings of Diabetic Eye Exam:?no retinopathy?General Examination: ?GENERAL APPEARANCE:?Reveals a pleasant, alert, well nourished, well- developed, well hydrated individual, who demonstrates proper attention to hygiene/body habitus, and is in no acute distress, Pt serves as own historian for office visit today.?ORIENTED:?person, place, and time.?FOOT EXAM:?Lower Extremity Neurological Exam performed:?Yes ?Footwear Evaluation?Footwear Evaluation performed:?Yes??? * Physical Examination:?L1930 Nightsplint AFO:?Application of static [...] - M77.52??? Plan: * Treatment: 2.?Ingrown nail?Procedure: 51946-Frimlmfx Plate 3.?Pain in left foot?Imaging: X ray [...] use of a nail nipper and/or dremel-type precision lens grinder apprentice, to a more viable healthy nail plate or bed tissue 1-5. Silver nitrate used for any petechial bleeding as necessary. Definitive antifungal treatment options have been reviewed and discussed with the patient. The patient chooses, no pharmaceutical tx - 49652.?Keratoma Treatment:?Parring or Cutting of Benign Hyperkeratotic Lesion(s)?(-56) 2-4 Lesions - The Benign hyperkeratotic lesions, as described in exam, were pared, and/or cut utilizing a sterile 15 blade, tissue nippers, and/or dremel - 44114.?Nail Avulsion:?Location?Medial nail border?,?T5.?Anesthesia?was deferred - NEUROPATHY: patient [...] Motrin was recommended for pain or discomfort (16179) , DIABETES: Pt was advised as to [...] tissue, any number - G0127.? * Procedure Codes:?89000 Avuls ion Plate, Modifiers: XS , [id number] X-RAY EXAM OF LEFT FOOT 3V, Modifiers: 26 , [id number] TRIMMING DYSTROPHIC NAILS ANY #, Modifiers: XS 91898 DEBRIDE NAIL, 1-5, Modifiers: XS 22044 TRIM SKIN LESIONS, 2 TO 4, Modifiers: [...] Interfil injection therapy, as well as surgical [place]/Endoscopic Fasciitomy surgical procedures if needed. Recommendations were [...] Nath DPM Date:?2023 Generated for Rodrigo anthony/Davey/Yarely on:?08/16/2024 09:26 AM [...] footcare Pt States Last PCP Visit: Date: Physical Examination Category Sub-Category Detail Notes Section [...] , (-) Charcot collapse/destruction noted at MTJ FOOTWEAR EVALUATION: good condition, exh ibit proper fit and accommodation for pedal deformities. [...]
--- OUTSIDE RECORDS SUMMARY | 2024-08-16 09:26 | XMS_ITS | Patient Health Record ---
Author Organization [facility] [place] Address [address] [place] [address] Care Team Providers Care Neurodiagnostic Tech Name Role Phone Jj Douglas MD Primary Care Provider Gorge Albarado Unavailable [phone] Allergies No Known Allergies Results Component Value Reference Range Notes HEMOGLOBIN A1C (GLYCOHEMOGLO BIN) Reviewed date:06/01/2024 02:12:41 PM Interpretation: Performing Lab: Notes/Report: HEMOGLOBIN A1C % (HH) 7.0 Reason For Referral No Information Medications Medication SIG (Take, Route, Frequency, Duration) Notes Start Date End Date Status Extra Depth Orthopedic Shoes (1 Pair) with Customized Heat Molded Multidensity Innersoles (3 Pair) as directed Dx: NIDDM/Polyneuropathy (E11.42), Hammertoe Foot Deformity (M20.41,M20.42), Preulcerative Skin Lesion(s) (L85.1 05/09/2023 Active Night Splint AFO - L1930 1 wear at rest for 30 days Active Omeprazole 20 MG 1 capsule 30 minutes before morning meal Orally Once a day Active Lisinopril 20 MG 1 tablet Orally Once a day Active Lantus SoloStar 100 UNIT/ML as directed Subcutaneous Act mouna Atorvastatin Calcium 20 MG 1 tablet Orally Once a day Active Gabapentin 300 MG 1 capsule Orally Onc e a day Active metFORMIN HCl 500 MG 1 tablet with a brayan l Orally Once a day Active glipiZIDE 10 MG 1 tablet 30 minutes before breakfast Orally Once a day Active oxyCODONE HCl 10 MG 1 tablet as needed O rally every 6 hrs Active Immunizations Vaccine Route Administration Date Status [...] ast year? No Points 0 Interpretation Negative Problems Problem Type SNOMED Code ICD Code Onset Dates Problem Status W/U Status Risk Notes Problem Acquired hammer toe of right foot (8347491389047229 ) Other hammer toe(s) (acquired), right foot (M20.41) Active confirmed Response to treatment, Improvemen t Problem Acquired hammer toe of left foot (4797449973841279 ) Other hammer toe(s) (acquired), left foot (M20.42) Active confirmed Response to treatment, Improvemen t Problem Polyneuropathy due to type 2 diabetes mellitus (050170812) Type 2 diabetes mellitus with diabetic polyneuropathy (E11.42) Active confirmed Vital Signs Blood pressure diastolic 80 mm Hg 06/01/2024 Height 5ft5in in 06/01/2024 Blood pressure systolic 120 mm Hg 06/01/2024 Weight 228 lbs 06/01/2024 BMI 37.94 kg/m2 06/01/2024 Procedures Procedure Date Ordered Date Performed Result Body Sit e 95997-HHTTGZO NAIL, 1-5 09/30/2023 N/A 63289 I&D ABSCESS- SIMPLE,SINGLE 09/30/2023 N/A 10888-MEDV SKIN LESIONS, 2 TO 4 09/30/2023 N/A H7384-OSSAQGEO DYSTROPHIC NAILS ANY # 09/30/2023 N/A 36544-IQJMURP NAIL, 1-5 12/09/2023 N/A 55361-Lgzgjdct Plate 12/09/2023 N/A 56631-MTAK SKIN LESIONS, 2 TO 4 12/09/2023 N/A N1605-GVHKKYIQ DYSTROPHIC NAILS ANY # 12/09/2023 N/A 05602-XYKHVHI NAIL, 1-5 03/02/2024 N/A 48288-Isewcvut Plate 03/02/2024 N/A 80492-FMYI SKIN LESIONS, 2 TO 4 03/02/2024 N/A L1190-XMHHXBWV DYSTROPHIC NAILS ANY # 03/02/2024 N/A 26521-JGTDCAZ NAIL, 1-5 06/01/2024 N/A 28050-Ltjlduht Plate 06/01/2024 N/A 94632-OELP SKIN LESIONS, 2 TO 4 06/01/2024 N/A H1037-ACOZZGCM DYSTROPHIC NAILS ANY # 06/01/2024 N/A Encounters Encounter Location Date Provider Diagnosis [address] [address] 09/30/2023 Gorge Nath Type 2 diabetes mellitus with diabetic polyneuropathy E11.42 ; Tinea unguium B35.1 and Abscess of toe, left L02.[address] [address] 12/09/2023 Gorge Nath Type 2 diabetes mellitus with diabetic polyneuropathy E11.42 ; Tinea unguium B35.1 ; Other hammer toe(s) (acquired), right foot M20.41 ; Other hammer toe(s) (acquired), left foot M20.42 and Ingrown nail L60.[address] [address] 03/02/2024 Gorgejaki Nath Type 2 diabetes mellitus with diabetic polyneuropathy E11.42 ; Tinea unguium B35.1 ; Ingrown nail L60.0 ; Pain in left foot M79.672 ; Plantar fasciitis of left foot M72.2 ; Calcaneal spur, left foot M77.32 ; Interstitial myositis of left foot M60.172 and Bursitis of left foot M77.[address] [address] 06/01/2024 Gorge Nath Type 2 diabetes mellitus with diabetic polyneuropathy E11.42 ; Tinea unguium B35.1 ; Plantar fasciitis of left foot M72.2 and Ingrown nail L60.[address] [facility] [address] [facility] [address] [facility] [address] [address] [facility] [address] [facility] Encounter Date Diagnosis (ICD Code) Assessment Notes Treatment Notes Treatment Clinical Notes Section Notes 09/30/2023 Tinea unguium (ICD-10 - B35.1) 09/30/2023 Type 2 diabetes mellitus with diabetic polyneuropathy (ICD-10 - E11.42) 12/09/2023 Tinea unguium (ICD-10 - B35.1) 12/09/2023 Type 2 diabetes mellitus with diabetic polyneuropathy (ICD-10 - E11.42) 03/02/2024 Type 2 diabetes mellitus with diabetic polyneuropathy (ICD-10 - E11.42) 03/02/2024 Tinea unguium (ICD-10 - B35.1) 06/01/2024 Tinea unguium (ICD-10 - B35.1) 06/01/2024 Type 2 diabetes mellitus with diabetic polyneuropathy (ICD-10 - E11.42) 06/01/2024 Plantar fasciitis of left foot (ICD-10 - M72.2) 03/02/2024 Ingrown nail (ICD-10 - L60.0) 09/30/2023 Abscess of toe, left (ICD-10 - L02.612) Patient Educated with: WOUND CARE INSTRUCTIONS. pdf (WOUND CARE INSTRUCTIONS. pdf) 12/09/2023 Other hammer toe(s) (acquired), right foot (ICD-10 - M20.41) Response to treatment,Impro vement 12/09/2023 Other hammer toe(s) (acquired), left foot (ICD-10 - M20.42) Response to treatment,Impro vement 06/01/2024 Ingrown nail (ICD-10 - L60.0) 03/02/2024 Pain in left foot (ICD-10 - M79.672) 12/09/2023 Ingrown nail (ICD-10 - L60.0) 03/02/2024 Plantar fasciitis of left foot (ICD-10 [...] X ray : Foot, left 3V 03/02/2024 70130-JFDORTT NAIL, 1-5 06/01/2024 21536-GRMPUGK NAIL, 1-5 03/02/2024 78065-JQEXVEF NAIL, 1-5 05/09/2023 43710-RQXGRSI NAIL, 1-5 07/18/2023 49035-DGAQKSS NAIL, 1-5 09/30/2023 83036-OCPOLXJ NAIL, 1-5 12/09/2023 91222-Quzivabb Plate 12/09/2023 02394-Lcjkfirs Plate 07/18/2023 45633-Ryhbvelp Plate 05/09/2023 25613-Qsqjxxkm Plate 03/02/2024 43624-Wmvjuxgl Plate 06/01/2024 25603-Bukgewnx Plate Each Additional 08/2023 28958 I&D ABSCESS- SIMPLE,SINGLE 024 86450-YWTO SKIN LESIONS, 2 TO 4 09/30/19 24 03557-FONV SKIN LESIONS, 2 TO 4 12/09/19 24 29156-INIO SKIN LESIONS, 2 TO 4 07/18/19 24 49202-AKWV SKIN LESIONS, 2 TO 4 05/09/19 24 21783-UQEV SKIN LESIONS, 2 TO 4 03/02/20 24 69145-ZFJY SKIN LESIONS, 2 TO 4 06/01/19 25 D1533-TGJEBHGQ DYSTROPHIC NAILS ANY # S7086-SRNBYTPK DYSTROPHIC NAILS ANY # X7889-LCQLSHOP DYSTROPHIC NAILS ANY # F1833-DHRMIDFB DYSTROPHIC NAILS ANY # D8309-OLBJVOXH DYSTROPHIC NAILS ANY # G6184-RNLIGSYT DYSTROPHIC NAILS ANY # Next Appt Details Provider Name:Gorge Nath , 09/07/2024 08:45:00 AM, [address] [place], [address], Insurance Providers Payer Name Payer Address Payer Phone Subscriber Number Group Number Insured Name Patient Relationship to Insured Coverage Start Date Coverage End Date [employer] Claims [address] [address] [place] [phone] [id number] Moo Dempsey Self - patient is the insured Medical (General) History Medical History History ICD Code Anxiety Arthritis Back,Hip,and Knee pain CAD (Cholesterol) covid-19 Diabetic Numbness Reflux ( GERD) Joint implants/screws Surgical History Surgery Date(Month/Year) knee surgery 2017 back surgery 1994 cyst removal from [facility] 1995
--- OUTSIDE RECORDS SUMMARY | 2024-08-16 09:26 | XMS_ITS | Clinical Summary ---
Author Organization [employer] Address [address] [facility] [address] [place] [address] Care Team Providers Care Corrections Lieutenant Name Role Phone Unavailable Primary Care Provider Unavailabl e Allergies No known active allergies Medications simvastatin (Zocor) 5 MG tablet Take by mouth. Activ e oxyCODONE (Oxy-IR) 5 MG immediate release capsule Take by mouth. Activ e omeprazole (PriLOSEC) [address] capsule Take by mouth. A ctive Lantus SoloStar 100 UNIT/ML pen INJECT 90 UNITS SUBCUTANEOUSLY ONCE DAILY 3 Active gabapentin (Neurontin) 300 MG capsule Take 1 capsule by mouth every 8 (eight) hours. Active clonazePAM (KlonoPIN) 0.5 MG tablet Take by mouth. Activ e chlorhexidine (Periogard) 0.12 % solution Place 15 mL into mouth between cheek and gum every 12 (twelve) hours. 2 Active atorvastatin (Lipitor) 10 MG tablet Take 1 tablet by mouth at bed time. Active acetaminophen (Tylenol 8 Hour) 650 MG ER tablet Take 2 tablets by mouth every 8 (eight) hours. 2 Active metFORMIN (Glucophage) 500 MG tablet Take by mouth. A ctive Farxiga 5 MG Take 5 mg by mouth Once per day. 4 Active glipiZIDE (Glucotrol) 10 MG tablet daily. Active lisinopril 20 MG tablet 1 tablet in the morning. Active Active Problems Problem Noted Date Diagnosed Date Ill-fitting dentures 06/17/2024 Interstitial myositis 03/22/2024 Plantar fasciitis of left foot 03/22/2024 Cervical root lesions 03/22/2024 Dental abscess 08/28/2022 Gingival recession, localized 07/04/2022 Partially edentulous maxilla 06/21/2022 Encounters Date Type Department Care Team Description 06/17/2024 9:00 AM EST Office Visit [facility] [address] [place] [address] George Noel DDS Ill-fitting dentures (Primary Dx) from Last 3 Months Social History Tobacco Use Types Packs/Day Years Used Date Smoking Tobacco: Every Day Cigarettes 0.3 0.5 Passive Smoke Exposure: Never Smokeless Tobacco: Never Tobacco Cessation:Ready to Q uit: Not Asked; Counseling Given: Not Answered Alcohol Use Standard Drinks/Week Comments Never 0 (1 standard drink = 0.6 oz pur e alcohol) Sex and Gender Information Value Date Recorded Sex Assigned at Male 02/11/2022 10:15 AM EDT Legal Sex Male 10:15 AM EDT Gender Identity Male 04/22/2022 9:19 AM EST Sexual Orientation Choose not to disclose 2022 9:19 AM EST Last Filed Vital Signs Vital Sign Reading Time Taken Comments Blood Pressure 134/72 06/17/2024 9:06 AM EST Pulse 78 07/04/2022 2:38 PM EDT Temperature - - Respiratory Rate - - Oxygen Saturation - - Inhaled Oxygen Concentration - - Weight - - Height - - Body Mass Index - - Plan of Treatment Upcoming Encounters Date Type Department Care Team (Late st Contact Info) Description 08/24/2024 3:00 PM EDT Office Visit [facility] [address] [place] [address] George Noel DDS [address] [place] [address] Health Maintenance Due Date Last Done Comments CT Colonography 1960 Colonoscopy 1960 Colorectal Cancer Screening 1960 Dental Prophylaxis 1960 Depression Screening 1960 FIT DNA/Cologuard 1960 FIT 1960 FOBT 1960 HIV Screening 1960 Lipid Panel 1960 SDOH Screening 1960 Sigmoidoscopy 1960 Alcohol/Substance Use Screening 1972 Hepatitis C Screening 1978 DTaP/Tdap/Td Vaccines (1 - Tdap) 1979 Pneumococcal Vaccine: 50+ Years (1 of 2 - PCV) 1979 Zoster Vaccines (1 of 2) 2010 COVID-19 Vaccine (3 - 2023-2 5 season) 2023 07/25/2020, 07/04/2020 Influenza Vaccine (#1) 2023 Dental Oral Exam 09/21/2024 03/22/2024 Dental X-Ray: Bitewings 03/23/2025 03/22/2024 Tobacco Screening 06/17/2025 06/17/2024 Dental X-Ray: Full Mouth 03/23/2027 024, 08/28/2022 RSV Patients and Patients Aged 60 years or older (1 - 1-dose 75+ series) 2035 HIB Vaccines Aged Out No longer eligi ble based on patient's age to complete this topic HPV Vaccines Aged Out No longer eligi ble based on patient's age to complete this topic Hepatitis A Vaccines Aged Out No long er eligible based on patient's age to complete this topic Hepatitis B Vaccines Aged Out No long er eligible based on patient's age to complete this topic IPV Vaccines Aged Out No longer eligi ble based on patient's age to complete this topic Meningococcal Vaccine Aged Out No jerson jordan eligible based on patient's age to complete this topic RSV under 20 months Aged Out No longe r eligible based on patient's age to complete this topic Rotavirus Vaccines Aged Out No longer eligible based on patient's age to complete this topic Procedures Procedure Name Priority Date/Time Associated Diagnosis Comments CASE PRESENTATION, DETAILED AND EXTENSIVE TREATMENT PLANNING Routine 06/17/2024 9:00 AM EST LIMITED ORAL EVALUATION - PROBLEM FOCUSED Routine 06/17/2024 9:00 AM EST INTRAORAL - COMPLETE SERIES OF RADIOGRAPHIC IMAGES Routine 03/22/2024 11:30 AM EST PERIODIC ORAL EVALUATION - ESTABLISHED PATIENT Routine 03/22/2024 11:30 AM EST from Last 3 Months or Most Recently Relevant to Health Maintenance Insurance [facility] AD[place]
== END 2024-08-16 09:42 | disposition home or self-care (01) ==
LOC: HO.HMCHD 08:55
PROVIDERS: PCP Internal Medicine; Visit Provider Internal Medicine
DX: I10 Essential (primary) hypertension (principal); E11.8 Type 2 diabetes mellitus with unspecified complications; F17.210 Nicotine dependence, cigarettes, uncomplicated; G89.4 Chronic pain syndrome

== ENCOUNTER → 2024-08-16 08:55 | Outpatient (BNVA) | payer OTHER, SELFPAY | PROVIDERS: PCP Internal Medicine; Visit Provider Internal Medicine | DX: Z13.89 Encounter for screening for other disorder (principal) ==

== ENCOUNTER 2024-09-13 10:53 | Outpatient (AMB) | payer OTHER, SELFPAY ==
[2024-09-13 10:37] VITALS: BP 132/76; PULSE 115; TEMP 37.1; O2SAT 98; BMI 36.6
--- NOTE | 2024-09-13 10:37 | MHC.PC.OV ---
Vital Signs 09/13/24 10:37 Height 5 ft 5 in Weight 220 lb BMI 36.6 BP 132/76 Blood Pressure Location Lt brachial Position Sitting Pulse 115 H Pulse Source Pulse Oximeter Temp 98.7 F Temp Source Axillary Pulse Oximetry (%) 98 Oxygen Delivery Method Room Air Intake Visit Reasons: 4 Week F/U - see comments Postal Support Employee Required: No Accompanied by: Self / Same As Patient Allergies No Known Allergies [No Known Allergies*] Allergy (Verified 09/13/24 10:37) Tobacco use date assessed: 09/13/24 Fall risk assessment: No Falls in past year Last assessed Fall Risk: 09/13/24 Dental Screening Dental Screen Date: 09/13/24 Did you have a dental visit in the last 12 months?: Yes Did you have a dental problem in the last 6 months where you did not have access to dental care?: No PFSH Medical History Generalized anxiety disorder Chronic pain syndrome Hyperlipidemia, unspecified Cervical myofascial pain syndrome Polyarthritis Frequent headaches HTN (hypertension) Diabetes mellitus, insulin dependent (IDDM), controlled Nicotine dependence, cigarettes, uncomplicated Surgical History History of partial knee replacement History of lumbar fusion History of left knee surgery History of back surgery Family History Sister Heart attack Pacemaker Father Cancer Social History Housing: House Alcohol intake: current Alcohol intake frequency: holidays/special occasions only Patient Tobacco Use Status: Current everyday Tobacco user Tobacco use type: Cigarette Cigarettes Per Day: 15 Years Smoked: 44 e-Cigarette/Vaping Use: Currently Using service: No Current occupational status: retired Cognitive needs: No Hearing needs: No Vision needs: Yes (reading glasses) Questionnaire PHQ-9 Over the last 2 weeks, how often have you been bothered by any of the following problems? 1. Little interest or pleasure in doing things: not at all 2. Feeling down, depressed, or hopeless: several days 3. Trouble falling or staying asleep, or sleeping too much: not at all 4. Feeling tired or having little energy: several days (lottle energy) 5. Poor appetite or overeating: not at all 6. Feeling bad about yourself - or that you are a failure or have let yourself or your family down: not at all 7. Trouble concentrating on things, such as reading the newspaper or watching television: not at all 8. Moving or speaking so slowly that other people could have noticed. Or the opposite - being so fidgety or restless that you have been moving around a lot more than usual: not at all 9. Thoughts that you would be better off or of hurting yourself in some way: not at all Total score: 2 Source: Developed by Drs. Lc Rose, Keisha Hall, Freeman Lyons and colleagues, with an educational leigha from [employer]. Thrive Questionnaire Date Thrive assessed: 09/13/24 I am a: Patient Within the past 12 months, did the food you bought not last and you didn't have the money to get more?: Never true Within the past 12 months, did you worry whether your food would run out before you got money to buy more?: Never true Do you have trouble paying for medicines?: No Do you have trouble getting transportation to medical appointments?: No Do you have trouble paying your heating and electricity bill?: No Do you have trouble taking care of your child, family member or friend?: No Do you have trouble with day-to-day activities such as bathing, preparing meals, shopping, managing finances, etc.?: No Are you currently unemployed and looking for a job?: No Are you interested in more education?: No THRIVE Score: 0 AUDIT C Alcohol Use Questionnaire (AUDIT-C) 1. How often do you have a drink containing alcohol?: Monthly or less 2. How many drinks containing alcohol do you have on a typical day when you are drinking?: 1 or 2 3. How often do you have six or more drinks on one occasion?: Less than monthly Total Score: 2 LINCOLN-7 AMB Questionnaire LINCOLN-7 Date LINCOLN - 7 assessed: 09/13/24 Feeling nervous, anxious, or on edge: 1 = Several days Not being able to stop or control worryin = Not at all Worrying too much about different things: 1 = Several days Trouble relaxin = Not at all Being so restless that it is hard to sit still: 0 = Not at all Becoming easily annoyed or irritable: 0 = Not at all Feeling afraid as if something awful might happen: 0 = Not at all Total LINCOLN-7 score (0-4 normal; 5-9 mild; 10-14 moderate; 15-21 severe): 2 Source: Developed by Drs. Lc Rose, Keisha Hall, Freeman Lyons and colleagues, with an educational leigha from [employer]. Physical exam (Primary Care) Vital Signs: Last Vital Signs Temp 98.7 F 09/13/24 10:37 Pulse 115 H 09/13/24 10:37 BP 132/76 09/13/24 10:37 Pulse Ox 98 09/13/24 10:37 Oxygen Delivery Method Room Air 09/13/24 10:37 BMI result Body Mass Index 36.6 Tobacco/Smoking Status: Tobacco use Status Tobacco use date assessed 09/13/24 09/13/24 10:38 Patient Tobacco Use Status Current everyday Tobacco 09/13/24 10:38 Tobacco use type Cigarette 09/13/24 10:38 e-Cigarette/Vaping Use Currently Using 09/13/24 10:38 PHQ-9: PHQ-9 Score PHQ-9: Total score 2 09/13/24 11:16 Thrive Assessment: Date of Thrive Assessment Date Thrive assessed 09/13/24 09/13/24 10:38 Coding Level of Care Code Est Pt Level 4 (59488) Complex EM visit Add On G2211 Diagnoses Generalized anxiety disorder F41.1 Type 2 diabetes mellitus with unspecified complications E11.8 Chronic pain syndrome G89.4 Assessment & Plan Assessment & Plan (1) Generalized anxiety disorder: Code(s): F41.1 - Generalized anxiety disorder Category: Medical Plan: Patient very anxious after recent events in his life. Has not heard from the Psyc dept. Community navigation will be called (2) Type 2 diabetes mellitus with unspecified complications: Code(s): E11.8 - Type 2 diabetes mellitus with unspecified complications Category: Medical Plan: Patient not checking his blood sugars. Advised him to check his sugars at home and get blood work done (3) Chronic pain syndrome: Code(s): G89.4 - Chronic pain syndrome Category: Medical Plan: Oxycodone has been reduced to three times a day Plan History of Present Illness - The patient is a 76-year-old female presenting with follow-up for blood pressure management. - Has a well-documented history of essential hypertension on medication. - Describes herself as a worry type, possibly impacting blood pressure control. - Regular follow-up was planned for proper management. - Follow-up for osteoarthritis in the left knee. - History of osteoarthritis addressed with three reflex injections, resulting in improved mobility. - Recently capable of walking significant distances, indicating improvement after treatment. - Addressing left ear discomfort. - History of left ear discomfort with potential wax build-up identified previously. - Recent episode of ear pain following travel, which has been a recurrent issue. - She has used ear drops in the past. Social History - Previously worked in [employer] service for 40 years; 20 years in [employer] [facility] [employer] and another 20 years in [place]. - Exercises by walking and recently managed to walk two miles. - Participates actively in gardening, as reported during her recent visit to [place]. - Reviewed her recent gain of approximately four pounds, believed to be related to arthritis affecting activity levels. - Regularly visits a chiropractor every two weeks to manage stress. Review of Systems - Cardiovascular: Reports a longstanding history of hypertension. - Musculoskeletal: Reports arthritis-related issues in the left knee that have been addressed with injections. - Ears: Reports pain in the left ear and past issues with wax build-up. - Neurological/Psychiatric: Reports being a worry type impacting sleep and potentially affecting hypertension. - Sleep: Reports sleep disturbances, particularly before healthcare appointments due to worry. Physical Exam General: Cooperative and healthy appearing Nutritional Appearance: Well nourished Orientation/consciousness: Patient oriented x3 Limitations: No limitations Head: Normal to inspection General: Appearance normal, both eyes and all related structures Neck: Normal visual inspection Chest: Normal palpation of entire chest wall Respiratory: All good ormal respiratory effort Neurology: Patient oriented x3 Results - Labs: Blood work performed in May, deemed all good results. - Tests and diagnostics: Evaluation by orthopedics revealed a calcium deposit in the rotator cuff. Plan 1. Essential Hypertension - Continue current medication regimen and daily administration. - Incorporate stress management techniques to address anxiety-related blood pressure concerns. - Follow-up in three months to monitor blood pressure and medication effects. 2. Osteoarthritis Of The Left Knee - Maintain improvement with injections; continue walking exercises using supportive shoes. - Monitor symptoms and consider orthopedic follow-up if needed. 3. Rotator Cuff Tendinitis With Calcium Deposits - Continue observation; consider physical therapy if symptoms or physical limitations increase. 4. Obesity - Focus on weight management through dietary adjustment and regular exercise. - Monitor weight, and consider a dietitian referral if needed. 5. Ear Discomfort - Use ear drops to alleviate symptoms if necessary. Discussion Notes I discussed with the patient that her essential hypertension should be managed with continued medication adherence and stress management techniques to minimize anxiety's impact on blood pressure. We plan to follow up in three months for reassessment. For her osteoarthritis, improvement was noted following recent reflex injections, and maintenance of moderate physical activity using proper footwear was encouraged. Regarding her rotator cuff tendinitis, the orthopedic evaluation was reassuring, and we highlighted the need for physical therapy if discomfort persists. For obesity, ongoing management through lifestyle adjustments was emphasized, highlighting the potential benefits of weight monitoring and nutritional counseling. I reviewed the discomfort in her left ear, and suggested ear drops for symptom relief if issues arise. Follow-up was suggested every three months unless symptoms warrant earlier evaluation. Patient Instructions - Continue your blood pressure medications every day. - Try to manage stress to help with your blood pressure. - Walk regularly and wear supportive shoes like sneakers. - Consider physical therapy if shoulder discomfort increases. - Use ear drops if uncomfortable and revisit symptoms. - Follow up with me in three months, or earlier if you have new symptoms. Orders: Referrals Cologuard Test Z12.11 - Encounter for screening for malignant neoplasm of colon
--- OUTSIDE RECORDS SUMMARY | 2024-09-13 12:09 | XMS_ITS | Encounter Summary ---
Author Organization [employer] Address [address] [facility] [address] [place] [address] Care Team Providers Care Applications Analyst Name Role Phone Unavailable Primary Care Provider Unavailabl e Reason for Visit * Reason Onset Date Comments rs no show appt 04/22/2024 Encounter Details Date Type Department Care Team (Late st Contact Info) Description 04/22/2024 Telephone [facility] [address] [place], [place] [phone] George Noel DDS [address] [place], [place] [phone] rs no show appt Social History Tobacco [...] documented in this encounter Plan of Treatment Not on file documented as of this encounter Visit Diagnoses Not on filedocumented in this encounter
== END 2024-09-13 11:42 | disposition home or self-care (01) ==
LOC: HO.HMCHD 10:57
PROVIDERS: PCP Internal Medicine; Visit Provider Internal Medicine
DX: F41.1 Generalized anxiety disorder (principal); E11.8 Type 2 diabetes mellitus with unspecified complications; G89.4 Chronic pain syndrome

== ENCOUNTER → 2024-09-13 10:53 | Outpatient (BNVA) | payer OTHER, SELFPAY | PROVIDERS: PCP Internal Medicine; Visit Provider Internal Medicine ==

== ENCOUNTER 2024-09-20 06:10 | Outpatient (REF) | payer OTHER, SELFPAY ==
--- OUTSIDE RECORDS SUMMARY | 2024-09-20 06:13 | XMS_ITS | Patient Health Record ---
Author Organization [facility] miguel SappFaustino Address [address] [place] [address] Care Team Providers Care Regional Director Of Admissions Name Role Phone Jj Douglas MD Primary Care Provider Gorge Albarado Unavailable [phone] Allergies No Known Allergies Results Component Value Reference Range Notes HEMOGLOBIN A1C (GLYCOHEMOGLO BIN) Reviewed date:06/01/2024 02:12:41 PM Interpretation: Performing Lab: Notes/Report: HEMOGLOBIN A1C % (HH) 7.0 Reason For Referral No Information Medications Medication SIG (Take, Route, Frequency, Duration) Notes Start Date End Date Status Night Splint AFO - L1930 1 wear at rest for 30 days Active Atorvastatin Calcium 20 MG 1 tablet Orally Once a day Active Lantus SoloStar 100 UNIT/ML as directed Subcutaneous Act mouna Extra Depth Orthopedic Shoes (1 Pair) with Customized Heat Molded Multidensity Innersoles (3 Pair) as directed Dx: NIDDM/Polyneuropathy (E11.42), Hammertoe Foot Deformity (M20.41,M20.42), Preulcerative Skin Lesion(s) (L85.1 Active Lisinopril 20 MG 1 tablet Orally Once a day Active Omeprazole 20 MG 1 capsule 30 minutes before morning meal Orally Once a day Active glipiZIDE 10 MG 1 tablet 30 minutes before breakfast Orally Once a day Active Gabapentin 300 MG 1 capsule Orally Onc e a day Not-Taking oxyCODONE HCl 10 MG 1 tablet as needed Orally every 6 hrs Active metFORMIN HCl 500 MG 1 tablet with a bryaan l Orally Once a day Active Immunizations Vaccine Route Administration Date Status [...] Problem Acquired hammer toe of right foot (4705825610194987 ) Other hammer toe(s) (acquired), right foot (M20.41) Active confirmed Response to treatment, Improvemen t Problem Acquired hammer toe of left foot (0292955164350523 ) Other hammer toe(s) (acquired), left foot (M20.42) Active confirmed Response to treatment, Improvemen t Problem Polyneuropathy due to type 2 diabetes mellitus (359188634) Type 2 diabetes mellitus with diabetic polyneuropathy (E11.42) Active confirmed Vital Signs Blood pressure diastolic 65 mm Hg 09/07/2024 Height 5ft5in in 09/07/2024 Blood pressure systolic 130 mm Hg 09/07/2024 Weight 228 lbs 09/07/2024 BMI 37.94 kg/m2 09/07/2024 Procedures Procedure Date Ordered Date Performed Result Body Sit e 51843-CXOUPNY NAIL, 1-5 09/30/2023 N/A 27937 I&D ABSCESS- SIMPLE,SINGLE 09/30/2023 N/A 98932-CXFP SKIN LESIONS, 2 TO 4 09/30/2023 N/A Z7032-XRYAZQOL DYSTROPHIC NAILS ANY # 09/30/2023 N/A 11073-BFNIYPE NAIL, 1-5 12/09/2023 N/A 15207-Eiigdgoe Plate 12/09/2023 N/A 93527-IHNT SKIN LESIONS, 2 TO 4 12/09/2023 N/A V7878-ZEPZZTFF DYSTROPHIC NAILS ANY # 12/09/2023 N/A 68947-UTDBEUA NAIL, 1-5 03/02/2024 N/A 45983-Iyjdbzql Plate 03/02/2024 N/A 01387-JXQK SKIN LESIONS, 2 TO 4 03/02/2024 N/A A6592-FRKALKSR DYSTROPHIC NAILS ANY # 03/02/2024 N/A 10636-DSAGIHP NAIL, 1-5 06/01/2024 N/A 30035-Zmkfrzbb Plate 06/01/2024 N/A 95521-EUYC SKIN LESIONS, 2 TO 4 06/01/2024 N/A T4761-HTWXMXBA DYSTROPHIC NAILS ANY # 06/01/2024 N/A 35510-UEDIYPU NAIL, 1-5 09/07/2024 N/A 57907-Sbypqutq Plate 09/07/2024 N/A 56573-NVPS SKIN LESIONS, 2 TO 4 09/07/2024 N/A Z7029-PVBKLIMI DYSTROPHIC NAILS ANY # 09/07/2024 N/A Encounters Encounter Location Date Provider Diagnosis [address] [address] 09/30/2023 Gorge Nath Type 2 diabetes mellitus with diabetic polyneuropathy E11.42 ; Tinea unguium B35.1 and Abscess of toe, left L02.[address] [address] 12/09/2023 Gorge Nath Type 2 diabetes mellitus with diabetic polyneuropathy E11.42 ; Tinea unguium B35.1 ; Other hammer toe(s) (acquired), right foot M20.41 ; Other hammer toe(s) (acquired), left foot M20.42 and Ingrown nail L60.[address] [address] 03/02/2024 Gorgejaki Nath Type 2 diabetes mellitus with diabetic polyneuropathy E11.42 ; Tinea unguium B35.1 ; Ingrown nail L60.0 ; Pain in left foot M79.672 ; Plantar fasciitis of left foot M72.2 ; Calcaneal spur, left foot M77.32 ; Interstitial myositis of left foot M60.172 and Bursitis of left foot M77.[address] [address] 06/01/2024 Gorge Nath Type 2 diabetes mellitus with diabetic polyneuropathy E11.42 ; Tinea unguium B35.1 ; Plantar fasciitis of left foot M72.2 and Ingrown nail L60.[address] [address] 09/07/2024 Gorge Nath Type 2 diabetes mellitus with diabetic polyneuropathy E11.42 ; Tinea unguium B35.1 ; Ingrown nail L60.0 ; Other hammer toe(s) (acquired), right foot M20.41 and Other hammer toe(s) (acquired), left foot M20.[address] [address] 09/16/2024 Gorge Pham [address] [address] 10/29/2023 Gorge Nath [address] [address] 10/29/2023 Gorge Pham [address] [address] 2024 Gorge Nath Assessments Encounter Date Diagnosis [...] mellitus with diabetic polyneuropathy (ICD-10 - E11.42) 09/07/2024 Tinea unguium (ICD-10 - B35.1) 09/07/2024 Type 2 diabetes mellitus with diabetic polyneuropathy (ICD-10 - E11.42) 09/07/2024 Ingrown nail (ICD-10 - L60.0) 06/01/2024 Plantar fasciitis of left foot (ICD-10 - M72.2) 03/02/2024 Ingrown nail (ICD-10 - L60.0) 09/30/2023 Abscess of toe, left (ICD-10 - L02.612) Patient Educated with: WOUND CARE INSTRUCTIONS. pdf (WOUND CARE INSTRUCTIONS. pdf) 12/09/2023 Other hammer toe(s) (acquired), right foot (ICD-10 - M20.41) Response to treatment,Impro vement 12/09/2023 Other hammer toe(s) (acquired), left foot (ICD-10 - M20.42) Response to treatment,Impro vement 09/07/2024 Other hammer toe(s) (acquired), right foot (ICD-10 - M20.41) Patient Educated with: DIABETIC FOOT CARE INSTRUCTIONS. pdf (DIABETIC FOOT CARE INSTRUCTIONS. pdf) 06/01/2024 Ingrown nail (ICD-10 - L60.0) 03/02/2024 Pain in left foot (ICD-10 - M79.672) 09/07/2024 Other hammer toe(s) (acquired), left foot (ICD-10 [...] X ray : Foot, left 3V 03/02/2024 67822-QNULNCR NAIL, 1-5 06/01/2024 79772-SVYGETY NAIL, 1-5 03/02/2024 99061-WGUBQWU NAIL, 1-5 09/07/2024 35383-ASHCJJE NAIL, 1-5 05/09/2023 50755-VNGINZD NAIL, 1-5 07/18/2023 96552-KRWCWAG NAIL, 1-5 09/30/2023 29984-EJQGEHO NAIL, 1-5 12/09/2023 84026-Rkhytazq Plate 12/09/2023 83758-Kofwjydr Plate 07/18/2023 14621-Cvvgsqnl Plate 05/09/2023 83914-Ewxtdxoa Plate 09/07/2024 92673-Muijnqyj Plate 06/01/2024 68459-Pmtvcmtd Plate 03/02/2024 15300-Vusziemm Plate Each Additional 08/2023 14080 I&D ABSCESS- SIMPLE,SINGLE 024 04140-BYPE SKIN LESIONS, 2 TO 4 09/30/19 24 74119-YLIT SKIN LESIONS, 2 TO 4 12/09/19 24 60478-EHKU SKIN LESIONS, 2 TO 4 07/18/19 24 28472-PWRU SKIN LESIONS, 2 TO 4 05/09/19 24 62330-PREO SKIN LESIONS, 2 TO 4 03/02/20 24 75705-BDUX SKIN LESIONS, 2 TO 4 06/01/19 25 30281-JGUO SKIN LESIONS, 2 TO 4 09/08/19 25 X8325-MYCTEDEB DYSTROPHIC NAILS ANY # W1161-RXUOOBWP DYSTROPHIC NAILS ANY # V8915-BVJKRUPF DYSTROPHIC NAILS ANY # O2773-QZUQZMGL DYSTROPHIC NAILS ANY # Y2621-UROVFPHZ DYSTROPHIC NAILS ANY # B0068-XGCCVHSW DYSTROPHIC NAILS ANY # M4665-LBTEJPQB DYSTROPHIC NAILS ANY # Next Appt Details Provider Name:Gorge Frederick Pham , 12/10/2024 09:30:00 AM, [address] [place] [address], [place], [address], Insurance Providers Payer Name Payer Address Payer Phone Subscriber Number Group Number Insured Name Patient Relationship to Insured Coverage Start Date Coverage End Date [employer] Claims [address] [address] [place] [id number] Moo Dempsey Self - patient is the insured Medical (General) History Medical History History ICD Code Anxiety Arthritis Back,Hip,and Knee pain CAD (Cholesterol) covid-19 Diabetic Numbness Reflux ( GERD) Joint implants/screws Surgical History Surgery Date(Month/Year) knee surgery 2017 back surgery 1994 cyst removal from [place] [address]
[2024-09-20 07:19] LABS: Hematocrit 44.3 % (42.0-52.0); Hemoglobin 14.1 g/dl (14.0-18.0); Mean Corpuscular HGB Conc 31.8 g/dl (31.0-36.0); Mean Corpuscular Hemoglobin 29.1 pg (27.0-33.0); Mean Corpuscular Volume 91.3 fL (80.0-98.0); Mean Platelet Volume 10.8 fL (9.4-12.4); Platelet Count 281 X10*3/uL (160-400); Red Blood Count 4.85 X10*6/uL (4.60-5.80); Red Cell Distribution Width 13.7 % (11.0-16.0); White Blood Count 10.4 X10*3/uL (4.8-10.8)
[2024-09-20 07:32] LABS: Appearance Urine Clear; Color Urine Yellow; Glucose Urine UA >=1000 mg/dL (Negative); Leukocyte Esterase Urine Negative (Negative); Nitrite Urine Negative (Negative); Specific Gravity - Urine 1.025 (1.005-1.025); UMIC TRIGGER UA YES; Urine Blood Negative (Negative); Urine Ketones Negative (Negative); Urine Protein Negative (Neg-Trace)
[2024-09-20 07:33] LABS: Estimated Average Glucose 243 mg/dL; Hemoglobin A1c % 10.1 % (<6.0); Total Hemoglobin (HGBA1C) 3666.6703 umol/L
[2024-09-20 07:40] LABS: Bacteria Urine None Seen (None Seen); Hyaline Casts Urine 0-2 /LPF (0-2); RBC Urine 0-2 /HPF (0-2); Squamous Epithelial Cell Urine 0-2 /HPF (0-2); WBC Urine 0-5 /HPF (0-5)
[2024-09-20 07:53] LABS: Alanine Aminotransferase 24 U/L (0-40); Albumin Level 4.6 g/dL (3.5-5.0); Alkaline Phosphatase 116 U/L (39-117); Anion Gap 14 (12-20); Aspartate Amino Transferase 15 U/L (5-37); Bilirubin Direct 0.1 mg/dL (0.0-0.5); Bilirubin Total 0.3 mg/dL (0.0-1.0); Blood Urea Nitrogen 17 mg/dL (9-16); Calcium 9.8 mg/dL (8.4-10.2); Carbon Dioxide 28 mmol/L (22-29); Chloride 102 mmol/L (96-108); Cholesterol 202 mg/dL (<200); Estimated Glomerular Filt Rate 50; Glucose Random 219 mg/dL (60-115); HDL Cholesterol 36 mg/dL (>40); LDL Cholesterol Calculated 97 mg/dL (<100); Potassium 5.5 mmol/L (3.3-5.1); Sodium 138 mmol/L (135-145); Total Protein 7.6 g/dL (6.5-8.0); Triglycerides 346 mg/dL (<150)
[2024-09-20 08:11] LABS: Thyroid Stimulating Hormone 0.94 uIU/mL (0.32-4.0)
[2024-09-20 08:40] LABS: Creatinine Urine 72.23 mg/dL; Microalbum/Creatinine Ratio Ur 30.4 ug/mg cr (<30)
== END 2024-09-20 06:11 | disposition home or self-care (01) ==
LOC: HO.LAB 06:10
PROVIDERS: PCP Internal Medicine; Visit Provider Internal Medicine
DX: I10 Essential (primary) hypertension (principal); E11.8 Type 2 diabetes mellitus with unspecified complications; G89.4 Chronic pain syndrome; F17.210 Nicotine dependence, cigarettes, uncomplicated
CPT/HCPCS: 36415; 80048; 80061; 80076; 81001; 82043; 82570; 83036; 84443; 85027

== ENCOUNTER 2024-11-08 11:39 | Outpatient (AMB) | payer OTHER, MEDICAID, SELFPAY ==
--- NOTE | 2024-11-08 11:43 | MHC.PC.OV ---
Vital Signs 11/08/24 11:45 11/08/24 11:47 Height 5 ft 5 in Weight 222 lb BP 110/62 Blood Pressure Location Rt brachial Position Sitting Respiration 17 Pulse 113 H Pulse Source Pulse Oximeter Temp 97.2 F Temp Source Temporal Artery Scan Pulse Oximetry (%) 97 Oxygen Delivery Method Room Air Intake Visit Reasons: L shoulder pain Rn Bariatric Required: No Accompanied by: Self / Same As Patient Allergies No Known Allergies (No Known Allergies*) Allergy (Verified 11/08/24 11:43) Tobacco use date assessed: 09/13/24 Dental Screening Dental Screen Date: 09/13/24 [facility] Medical History Generalized anxiety disorder Chronic pain syndrome Hyperlipidemia, unspecified Cervical myofascial pain syndrome Polyarthritis Frequent headaches HTN (hypertension) Diabetes mellitus, insulin dependent (IDDM), controlled Nicotine dependence, cigarettes, uncomplicated Surgical History History of partial knee replacement History of lumbar fusion History of left knee surgery History of back surgery Family History Sister Heart attack Pacemaker Father Cancer Social History Housing: House Alcohol intake: current Alcohol intake frequency: holidays/special occasions only Patient Tobacco Use Status: Current everyday Tobacco user Tobacco use type: Cigarette Cigarettes Per Day: 15 Years Smoked: 44 Packs per year/per ci.00 e-Cigarette/Vaping Use: Currently Using service: No Current occupational status: retired Cognitive needs: No Hearing needs: No Vision needs: Yes (reading glasses) Questionnaire Thrive Questionnaire Date Thrive assessed: 09/13/24 LINCOLN-7 AMB Questionnaire LINCOLN-7 Date LINCOLN - 7 assessed: 09/13/24 Source: Developed by Drs. Lc Rose, Keisha Hall, Freeman Lyons and colleagues, with an educational leigha from [employer]. Physical exam (Primary Care) Vital Signs: Last Vital Signs Temp 97.2 F 11/08/24 11:47 Pulse 113 H 11/08/24 11:47 Resp 17 11/08/24 11:47 BP 110/62 11/08/24 11:47 Pulse Ox 97 11/08/24 11:47 Oxygen Delivery Method Room Air 11/08/24 11:47 Tobacco/Smoking Status: Tobacco use Status Tobacco use date assessed 09/13/24 11/08/24 11:49 Patient Tobacco Use Status Current everyday Tobacco 11/08/24 11:49 Tobacco use type Cigarette 11/08/24 11:49 e-Cigarette/Vaping Use Currently Using 11/08/24 11:49 Thrive Assessment: Date of Thrive Assessment Date Thrive assessed 09/13/24 11/08/24 11:49 Coding Level of Care Code Est Pt Level 4 (14374) Complex EM visit Add On G2211 Diagnoses Left shoulder pain M25.512 Assessment & Plan Assessment & Plan (1) Left shoulder pain: Code(s): M25.512 - Pain in left shoulder Plan: As below Plan History of Present Illness - The patient is a 64-year-old male presenting with shoulder pain and associated symptoms. - The shoulder pain began a couple of weeks ago, described as a throbbing pain radiating from the neck to the elbow. - Reports numbness in two fingers of the left hand and swelling in the neck. - Has been using Biofreeze without significant relief. - Previously experienced groin pain in May, lasting two months. Social History Review of Systems - Musculoskeletal: Reports shoulder pain radiating to the elbow for a couple of weeks. - Neurological: Reports numbness in two fingers of the left hand. - Neck: Reports swelling in the neck. Physical Exam General: Cooperative and healthy appearing Nutritional Appearance: Well nourished Orientation/consciousness: Patient oriented x3 Limitations: No limitations Head: Normal to inspection General: Appearance normal, both eyes and all related structures Neck: Normal visual inspection Chest: Normal palpation of entire chest wall Respiratory: N ormal respiratory effort Neurology: Patient oriented x3, numbness in two fingers of the left hand. Results Plan 1. Shoulder Pain - Plan includes obtaining a shoulder x-ray to assess the condition further. - Prescribed anti-inflammatory medication to be taken once daily. - Prescribed muscle relaxant to be taken once daily. 2. Neck Pain - Observed swelling in the neck, suggesting inflammation. - Prescribed anti-inflammatory medication to address swelling. Discussion Notes I discussed with the patient the likely causes of his shoulder and neck pain, including the possibility of inflammation. We agreed on obtaining a shoulder x-ray to further evaluate the condition. I prescribed an anti-inflammatory and a muscle relaxant to help alleviate the symptoms. The patient was advised to follow up after the x-ray results are available. Patient Instructions - Take the prescribed anti-inflammatory medication once daily. - Take the prescribed muscle relaxant once daily. - Get the shoulder x-ray done as soon as possible. - Follow up with the doctor after the x-ray results are available. Orders: Orders XR shoulder LT min 2V Today S43.402A - Unspecified sprain of left shoulder joint, initial encounter Medications: New cyclobenzaprine 10 mg PO BEDTIME 14 tabs 0RF
[2024-11-08 11:47] VITALS: BP 110/62; PULSE 113; RESP 17; TEMP 36.2; O2SAT 97
--- OUTSIDE RECORDS SUMMARY | 2024-11-08 12:55 | XMS_ITS | Patient Health Record ---
Author Organization [facility] miguel SappFaustino Address [address] [place] [address] Care Team Providers Care Buckle Stringer Name Role Phone Jj Douglas MD Primary Care Provider Gorge Albarado Unavailable [phone] Allergies No Known Allergies Results Component Value Reference Range Notes HEMOGLOBIN A1C (GLYCOHEMOGLO BIN) Reviewed date:06/01/2024 02:12:41 PM Interpretation: Performing Lab: Notes/Report: HEMOGLOBIN A1C % (HH) 7.0 Reason For Referral No Information Medications Medication SIG (Take, Route, Frequency, Duration) Notes Start Date End Date Status Night Splint AFO - L1930 1 wear at rest; Duration: 30 days Active Atorvastatin Calcium 20 MG [...] brayan l Orally Once a day Active Immunizations [...] Problem Acquired hammer toe of right foot (2035812143123813 ) Other hammer toe(s) (acquired), right foot (M20.41) Active confirmed Response to treatment, Improvemen t Problem Acquired hammer toe of left foot (1668973451115544 ) Other hammer toe(s) (acquired), left foot (M20.42) Active confirmed Response to treatment, Improvemen t Problem Polyneuropathy due to type 2 diabetes mellitus (567353870) Type 2 diabetes mellitus with diabetic polyneuropathy (E11.42) Active confirmed Vital Signs Blood pressure diastolic 65 mm Hg 09/07/2024 Height 5ft5in in 09/07/2024 Blood pressure systolic 130 mm Hg 09/07/2024 Weight 228 lbs 09/07/2024 BMI 37.94 kg/m2 09/07/2024 Procedures Procedure Date Ordered Date Performed Result Body Sit e 48003-JGRPHVG NAIL, 1-5 12/09/2023 N/A 57944-Mdlqsbxp Plate 12/09/2023 N/A 26432-GCCH SKIN LESIONS, 2 TO 4 12/09/2023 N/A R5689-QVDMGBWH DYSTROPHIC NAILS ANY # 12/09/2023 N/A 07017-KBRRTUB NAIL, 1-5 03/02/2024 N/A 63251-Oenfkmoj Plate 03/02/2024 N/A 68424-VPUA SKIN LESIONS, 2 TO 4 03/02/2024 N/A U3653-ZNWGUCSE DYSTROPHIC NAILS ANY # 03/02/2024 N/A 11078-UPBJBRD NAIL, 1-5 06/01/2024 N/A 84107-Tkphejsi Plate 06/01/2024 N/A 19704-LRUQ SKIN LESIONS, 2 TO 4 06/01/2024 N/A T4258-WSFUPHQB DYSTROPHIC NAILS ANY # 06/01/2024 N/A 53316-AXUAREW NAIL, 1-5 09/07/2024 N/A 72376-Mjzhpxgh Plate 09/07/2024 N/A 88836-YLZF SKIN LESIONS, 2 TO 4 09/07/2024 N/A P7519-PMKOQSCX DYSTROPHIC NAILS ANY # 09/07/2024 N/A Encounters Encounter Location Date Provider Diagnosis [address] [address] 12/09/2023 Gorge Pham Type 2 diabetes mellitus with diabetic polyneuropathy E11.42 ; Tinea unguium B35.1 ; Other hammer toe(s) (acquired), right foot M20.41 ; Other hammer toe(s) (acquired), left foot M20.42 and Ingrown nail L60.[address] [address] 03/02/2024 Gorge Pham Type 2 diabetes mellitus with diabetic polyneuropathy E11.42 ; Tinea unguium B35.1 ; Ingrown nail L60.0 ; Pain in left foot M79.672 ; Plantar fasciitis of left foot M72.2 ; Calcaneal spur, left foot M77.32 ; Interstitial myositis of left foot M60.172 and Bursitis of left foot M77.[address] [address] 06/01/2024 Gorge Velasquezunier Type 2 diabetes mellitus with diabetic polyneuropathy E11.42 ; Tinea unguium B35.1 ; Plantar fasciitis of left foot M72.2 and Ingrown nail L60.[address] [address] 09/07/2024 Gorgejaki VelasquezPham Type 2 diabetes mellitus with diabetic polyneuropathy E11.42 ; Tinea unguium B35.1 ; Ingrown nail L60.0 ; Other hammer toe(s) (acquired), right foot M20.41 and Other hammer toe(s) (acquired), left foot M20.42 [facility] [address] [address] 2024 Gorge Nath [facility] [address] 09/16/2024 Gorge Nath Assessments Encounter Date Diagnosis (ICD Code) Assessment Notes Treatment Notes Treatment Clinical Notes Section Notes 12/09/2023 Tinea unguium (ICD-10 - B35.1) 12/09/2023 [...] M72.2) 03/02/2024 Ingrown nail (ICD-10 - L60.0) 12/09/2023 Other hammer toe(s) (acquired), right foot [...] foot (ICD-10 - M77.52) Plan Of Treatment Pending Test Test Name Order Date X ray : Foot, left 3V 03/02/2024 44639-CUTKYMV NAIL, 1-5 06/01/2024 61147-TSCQYSC NAIL, 1-5 03/02/2024 25932-IPJMKNL NAIL, 1-5 09/07/2024 60565-JYLIMMG NAIL, 1-5 05/09/2023 76143-WEQKTBG NAIL, 1-5 07/18/2023 33171-SHBITTD NAIL, 1-5 09/30/2023 63573-UNKJRDL NAIL, 1-5 12/09/2023 34008-Bydfyvqu Plate 12/09/2023 59204-Ygbpnixi Plate 07/18/2023 95576-Isjxblyn Plate 05/09/2023 11335-Owaisspo Plate 09/07/2024 66096-Pvnkvxui Plate 06/01/2024 43773-Nyhimtja Plate 03/02/2024 83231-Bhmcezqs Plate Each Additional 08/2023 40257 I&D ABSCESS- SIMPLE,SINGLE 024 30200-MAAX SKIN LESIONS, 2 TO 4 09/30/19 24 37679-TKKJ SKIN LESIONS, 2 TO 4 12/09/19 24 64164-AFDZ SKIN LESIONS, 2 TO 4 07/18/19 24 23541-YQRT SKIN LESIONS, 2 TO 4 05/09/19 24 26244-KJWH SKIN LESIONS, 2 TO 4 03/02/20 24 62998-RFOW SKIN LESIONS, 2 TO 4 06/01/19 25 79057-DAGU SKIN LESIONS, 2 TO 4 09/08/19 25 M5484-DCSHGOZQ DYSTROPHIC NAILS ANY # N4197-YHQQXAVM DYSTROPHIC NAILS ANY # L6713-EKWMQLKR DYSTROPHIC NAILS ANY # J4632-ROFCWZLC DYSTROPHIC NAILS ANY # A2779-RLXGLIDN DYSTROPHIC NAILS ANY # Y4616-NAHASRZV DYSTROPHIC NAILS ANY # I7530-LNENSOVG DYSTROPHIC NAILS ANY # Next Appt Details Provider Name:Gorge Nath , 12/10/2024 09:30:00 AM, [address] [place] [address], [address], Insurance Providers Payer Name Payer Address Payer Phone Subscriber Number Group Number Insured Name Patient Relationship to Insured Coverage Start Date Coverage End Date [employer] Claims [address] [address] [place] [address] [id number] Moo Dempsey Self - patient is the insured Medical (General) History Medical History History ICD Code Anxiety Arthritis Back,Hip,and Knee pain CAD (Cholesterol) covid-19 Diabetic Numbness Reflux ( GERD) Joint implants/screws Surgical History Surgery Date(Month/Year) knee surgery 2017 back surgery 1994 cyst removal from [facility] 1995
--- OUTSIDE RECORDS SUMMARY | 2024-11-08 12:55 | XMS_ITS | Encounter Summary ---
Author Organization [employer] Address [address] [facility] [address] [place] [address] Care Team Providers Care Ux Engineer Name Role Phone Unavailable Primary Care Provider Unavailabl e Encounter Details Date Type Department Care Team (Late st Contact Info) Description 06/13/2022 Abstract [facility] [address] [place], [place] [phone] George Noel DDS [address], [place] [phone] Social History Tobacco Use Types Packs/Day Years [...] as of this encounter Plan of Treatment Not on file documented as of this encounter Visit Diagnoses Not on filedocumented in this encounter
== END 2024-11-08 11:57 | disposition home or self-care (01) ==
LOC: HO.HMCHD 11:40
PROVIDERS: PCP Internal Medicine; Visit Provider Internal Medicine
DX: M25.512 Pain in left shoulder (principal)

== ENCOUNTER 2024-11-08 11:39 | Outpatient (REF) | payer OTHER, MEDICAID, SELFPAY ==
--- NOTE | ~2024-11-08 | XR_ITS ---
EXAMINATION: XR SHOULDER 2 OR MORE VIEWS LEFT HISTORY: S43.402A - Unspecified sprain of left shoulder joint, initial encounter COMPARISON: There are no prior studies available for comparison. FINDINGS: Four views of the left shoulder are submitted. Osseous mineralization is normal. There is no fracture or dislocation. The glenohumeral joint is maintained. There is mild narrowing of the AC joint. Amorphous calcifications adjacent to the greater tuberosity of the humerus are likely related to the rotator cuff. XR/XR shoulder LT min 2V IMPRESSION: Mild narrowing of the AC joint. Probable rotator cuff calcifications. Electronically signed by: Lc Zavala MD 11/08/2024 12:42 PM EDT
== END 2024-11-08 11:40 | disposition home or self-care (01) ==
LOC: HO.XRAY 11:39
PROVIDERS: PCP Internal Medicine; Visit Provider Internal Medicine
DX: S43.402A Unspecified sprain of left shoulder joint, initial encounter (principal); M54.2 Cervicalgia; X58.XXXA Exposure to other specified factors, initial encounter; Y93.9 Activity, unspecified; Y92.9 Unspecified place or not applicable; Y99.9 Unspecified external cause status
CPT/HCPCS: 73030

== ENCOUNTER → 2024-11-08 12:10 | Outpatient (BNV) | payer OTHER, MEDICAID, SELFPAY | PROVIDERS: PCP Internal Medicine; Visit Provider Radiology Diagnostic Radiology | DX: M19.012 Primary osteoarthritis, left shoulder (principal) | CPT/HCPCS: 73030 ==

== ENCOUNTER 2024-11-17 09:50 | Outpatient (AMB) | payer OTHER, MEDICAID, SELFPAY ==
--- OUTSIDE RECORDS SUMMARY | 2024-11-17 10:19 | XMS_ITS | Patient Health Record ---
Author Organization [facility] miguel SappFaustino Address [address] [place] [address] Care Team Providers Care [employer] Server Name Role Phone Jj Douglas MD Primary Care Provider Gorge Albarado Unavailable [phone] Allergies No Known Allergies Results Component Value [...] Problem Acquired hammer toe of right foot (3392396812429502 ) Other hammer toe(s) (acquired), right foot (M20.41) Active confirmed Response to treatment, Improvemen t Problem Acquired hammer toe of left foot (6957015899028118 ) Other hammer toe(s) (acquired), left foot (M20.42) Active confirmed Response to treatment, Improvemen t Problem Polyneuropathy due to type 2 diabetes mellitus (537766266) Type 2 diabetes mellitus with diabetic polyneuropathy (E11.42) Active confirmed Vital Signs Blood pressure diastolic 65 mm Hg 09/07/2024 Height 5ft5in in 09/07/2024 Blood pressure systolic 130 mm Hg 09/07/2024 Weight 228 lbs 09/07/2024 BMI 37.94 kg/m2 09/07/2024 Procedures Procedure Date Ordered Date Performed Result Body Sit e 76311-QPUSQNP NAIL, 1-5 12/09/2023 N/A 92527-Hcvxkqss Plate 12/09/2023 N/A 48765-IXCI SKIN LESIONS, 2 TO 4 12/09/2023 N/A Q0688-RWTDKWFI DYSTROPHIC NAILS ANY # 12/09/2023 N/A 80458-EILMFKM NAIL, 1-5 03/02/2024 N/A 63636-Woqdjtsx Plate 03/02/2024 N/A 32572-JVQS SKIN LESIONS, 2 TO 4 03/02/2024 N/A G0962-SRUKIQHP DYSTROPHIC NAILS ANY # 03/02/2024 N/A 91571-BEKKRII NAIL, 1-5 06/01/2024 N/A 88041-Erstqfsz Plate 06/01/2024 N/A 31963-PHOO SKIN LESIONS, 2 TO 4 06/01/2024 N/A C1313-UYDJMZOK DYSTROPHIC NAILS ANY # 06/01/2024 N/A 54069-UWNMNOR NAIL, 1-5 09/07/2024 N/A 55984-Mmxwoojs Plate 09/07/2024 N/A 60508-CZSC SKIN LESIONS, 2 TO 4 09/07/2024 N/A C1837-XMYPVNOQ DYSTROPHIC NAILS ANY # 09/07/2024 N/A Encounters Encounter Location Date Provider Diagnosis [address] [address] 12/09/2023 Gorge Pham Type 2 diabetes mellitus with diabetic polyneuropathy E11.42 ; Tinea unguium B35.1 ; Other hammer toe(s) (acquired), right foot M20.41 ; Other hammer toe(s) (acquired), left foot M20.42 and Ingrown nail L60.[address] [address] 03/02/2024 Gorge Pham Type 2 diabetes mellitus with diabetic polyneuropathy E11.42 ; Tinea unguium B35.1 ; Ingrown nail L60.0 ; Pain in left foot M79.672 ; Plantar fasciitis of left foot M72.2 ; Calcaneal spur, left foot M77.32 ; Interstitial myositis of left foot M60.172 and Bursitis of left foot M77.[address] [address] 06/01/2024 Gorge Velasquezunier Type 2 diabetes mellitus with diabetic polyneuropathy E11.42 ; Tinea unguium B35.1 ; Plantar fasciitis of left foot M72.2 and Ingrown nail L60.[address] [address] 09/07/2024 Gorgeajki VelasquezPham Type 2 diabetes mellitus with diabetic polyneuropathy E11.42 ; Tinea unguium B35.1 ; Ingrown nail L60.0 ; Other hammer toe(s) (acquired), right foot M20.41 and Other hammer toe(s) (acquired), left foot M20.42 [facility] [address] [address] 2024 Gorge Nath [facility] [address] 09/16/2024 Gorge Nath Assessments Encounter Date Diagnosis [...] X ray : Foot, left 3V 03/02/2024 45176-EHJOWQU NAIL, 1-5 06/01/2024 26564-WWTGFJF NAIL, 1-5 03/02/2024 29153-EWOUHQD NAIL, 1-5 09/07/2024 67699-XRSQFZT NAIL, 1-5 05/09/2023 55282-EFUTSQM NAIL, 1-5 07/18/2023 91794-STHTXZS NAIL, 1-5 09/30/2023 28300-UAMROOF NAIL, 1-5 12/09/2023 12185-Fueespnt Plate 12/09/2023 40930-Vtommzzw Plate 07/18/2023 50310-Bfnkfmzl Plate 05/09/2023 94899-Nkhpxvdc Plate 09/07/2024 08248-Sflsjuvl Plate 06/01/2024 22944-Kvwqbiwl Plate 03/02/2024 31328-Shagbxcs Plate Each Additional 08/2023 49193 I&D ABSCESS- SIMPLE,SINGLE 024 90705-YQQA SKIN LESIONS, 2 TO 4 09/30/19 24 09503-KOPL SKIN LESIONS, 2 TO 4 12/09/19 24 43587-ORAM SKIN LESIONS, 2 TO 4 07/18/19 24 93530-HTTO SKIN LESIONS, 2 TO 4 05/09/19 24 33304-DNEG SKIN LESIONS, 2 TO 4 03/02/20 24 22176-KDRV SKIN LESIONS, 2 TO 4 06/01/19 25 34102-DIWF SKIN LESIONS, 2 TO 4 09/08/19 25 M6800-RVHBUZMD DYSTROPHIC NAILS ANY # O5339-IWMSZAXH DYSTROPHIC NAILS ANY # M0159-IXIICSXD DYSTROPHIC NAILS ANY # J3687-WFVMGDFX DYSTROPHIC NAILS ANY # C4410-MWOZCSUM DYSTROPHIC NAILS ANY # U6484-XVWUAWTH DYSTROPHIC NAILS ANY # K8563-BQAFDVMU DYSTROPHIC NAILS ANY # Next Appt Details Provider Name:Gorge Nath , 12/10/2024 09:30:00 AM, [address] [place] [address], [phone], Insurance Providers Payer Name Payer Address Payer Phone Subscriber Number Group Number Insured Name Patient Relationship to Insured Coverage Start Date Coverage End Date [employer] [address] [address] [place] [address] [phone] [id number] Moo Dempsey Self - patient is the insured Medical (General) History Medical History History ICD Code Anxiety Arthritis Back,Hip,and Knee pain CAD (Cholesterol) covid-19 Diabetic Numbness Reflux ( GERD) Joint implants/screws Surgical History Surgery Date(Month/Year) knee surgery 2017 back surgery 1994 cyst removal from [facility] 1995
--- OUTSIDE RECORDS SUMMARY | 2024-11-17 10:19 | XMS_ITS | Encounter Summary ---
Author Organization [employer] Address [address] [place] [address] Care Team Providers Care [employer] Driver Name Role Phone Unavailable Primary Care Provider Unavailabl e Encounter Details Date Type Department Care Team (Late st Contact Info) Description 06/13/2022 Abstract [facility] [address], [place] [phone] George Noel DDS [address], [place] [phone] Social History Tobacco Use Types Packs/Day Years [...]
--- NOTE | 2024-11-28 15:53 | A.OFFPSYCH_ITS ---
Intake Intake Visit Reasons: consultation Intake Note: 11/17/24 PHQ-9 9 LINCOLN-7 10 Weight Reduction Specialist Required: No Allergies No Known Allergies (No Known Allergies*) Allergy (Verified 11/08/24 11:43) Medication List - Last Reconciled 11/28/24 by Glendy Sinclair APRN Accu-Chek Guide test strips (blood sugar diagnostic) once daily NS atorvastatin 20 mg PO DAILY blood-glucose meter (Accu-Chek Guide Me Glucose Meter) As directed cyclobenzaprine 10 mg PO BEDTIME dapagliflozin propanediol (Farxiga) 5 mg PO DAILY duloxetine (Cymbalta) 20 mg PO DAILY glipizide 10 mg PO BID insulin glargine (Lantus Solostar U-100 Insulin) 90 units (0.9 mL) subcut DAILY insulin lispro (Humalog KwikPen (U-100) Insulin) 10 units (0.1 mL) subcut TID 90 days lancets (Accu-Chek Softclix Lancets) As directed lisinopril mg PO DAILY metformin 500 mg PO BID omeprazole 20 mg PO DAILY oxycodone 10 mg PO TID PRN pen needle, diabetic (Pen Needle) use to inject medication 4 times daily HPI- Psychiatric Chief Complaint: consultation HPI Narrative: 64 yo male, reported history of anxiety, reports anergia, not feeling like himself, and anxiety that makes me feel sick to my stomach . Reports being out of work since 1993 (worked in the [employer] business for 20 years), however, current sx present since May 2024 when he reports a groin muscle injury. Reports no tx in ~2 months as PCP retired and he now has a new provider. Also reports shoulder pain- believes it to be arthritis or a pinched nerve. Also reports neuropathic pain from DM. Currently 3 spinal rods (1994), knee injuries with surgeries (2016) and several pain sources. Hx of attending pain mgt programs, however, they have not been effective as of this time. Reports 2 years of loss including pt finding 's brother after his 08/14/23 and finding wifes daughter, age 47, having on the sofa on 08/19/24. It is a lot to manage . Re ports he sleeps in a recliner to manage pain and has ELENA (2-3 am). Appetite is unchanged. Pt asks for assistance with depression, anxiety, energy loss and pain mgt. Past Psychiatric History: IP: Denies OP: Denies Trials: Klonopin Denies suicide attempts or ideation Denies hx of lis, AH,VH or sx of psychosis currently and by history Subjective Subjective Subjective Medication Compliance: Yes Side effects from medications: No Review of Systems Medical Review of Systems: unchanged Review of Systems Review of Systems chronic pain Mental Status Exam Mental Status Exam Patient Appearance: Appropriate Patient Orientation: Person, Place, Time and Situation Level of Consciousness: Alert Patient Behavior: Talkative and Good Eye Contact Mood Description: Constricted Affect Description: Constricted Patient Cognition Impaired: No Ability to Follow Directions: Good Speech Pattern: Spontaneous Speech Memory Description: Intact Hallucinations: None Delusions: Not Present Thought Process: Distracted and Rumination Thought Content: positive for Perseveration and positive for Suicidal Ideation (denies) Depressive Symptoms: Insomnia, Difficulty Sleeping and Thoughts of /Suicide (denies) Judgement: Good Assessment and Plan Assessment & Plan (1) Generalized anxiety disorder: Status: Acute Code(s): F41.1 - Generalized anxiety disorder (2) PTSD (post-traumatic stress disorder): Status: Acute Code(s): F43.10 - Post-traumatic stress disorder, unspecified (3) Chronic pain syndrome: Status: Acute Code(s): G89.4 - Chronic pain syndrome Plan 64 yo male, history of anxiety, chronic pain and PTSD, with two cardinal traumatic events occurring within the past two years-finding a brother in law , 08/2023in his home and finding a step daughter in her home,08/2024. Pt has stopped working due to physical injury since 1993, has several sources of pain, which effect sleep and mood. 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 Will begin a trial of Duloxetine at 20 mg and re-evaluate for ongoing titration if there is efficacy and tolerance. Pt is not interested in psychotherapy referral at this time. Medications: New duloxetine (Cymbalta) 20 mg PO DAILY 30 caps 0RF Counseling and coordination of Care Medication management counseling: Effectiveness, Side effects, Dosing range, Duration, Drug interaction and Adherence Diagnosis and Prognosis Counseling: Impact of diagnosis on life functions Details: I spent [] minutes reviewing the record, seeing the patient and documenting in the medical record. Counseling provided to the patient/caregiver as outlined below. Addressed patient/caregiver concerns regarding current medication regime including effective adherence. Addressed patient/caregiver concerns regarding diagnosis and prognosis including accuracy of diagnosis, prognosis over time, impact of diagnosis. Addressed patient/caregiver concerns regarding impact of recent stressors. [facility] Medical History (Updated 11/28/24 @ 16:20 by Glendy Sinclair APRN) PTSD (post-traumatic stress disorder) Generalized anxiety disorder Chronic pain syndrome Hyperlipidemia, unspecified Cervical myofascial pain syndrome Polyarthritis Frequent headaches HTN (hypertension) Diabetes mellitus, insulin dependent (IDDM), controlled Nicotine dependence, cigarettes, uncomplicated Surgical History History of partial knee replacement History of lumbar fusion History of left knee surgery History of back surgery Family History Sister Heart attack Pacemaker Father Cancer Social History Housing: House Alcohol intake: current Alcohol intake frequency: holidays/special occasions only Patient Tobacco Use Status: Current everyday Tobacco user Tobacco use type: Cigarette Cigarettes Per Day: 15 Years Smoked: 44 e-Cigarette/Vaping Use: Currently Using service: No Current occupational status: retired Cognitive needs: No Hearing needs: No Vision needs: Yes (reading glasses) Social History: One of nine children, 4 girls, 5 boys, pt is the youngest boy. One brother of hepatic disease. Raised by mother, stepfather. Parents have . Pt was in SP[employer] throughout school, it was not good . I never went to school . 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 Two are struggling, two are doing well Eleven grandchildren plus girlfriends grandchildren as well. Family history of anxiety-mother Enjoys fishing Substance History: Alcohol- currently sober, history of excessive intake Substances-denies Caffeine- 1-3 daily Nicotine- ~1 carton or less per month Trauma History: Affirms Coding Level of Care Code Psych Diag Eval w/Med (47615) Diagnoses Generalized anxiety disorder F41.1 PTSD (post-traumatic stress disorder) F43.10 Chronic pain syndrome G89.4
== END 2024-11-17 10:31 | disposition home or self-care (01) ==
LOC: HO.HOP 09:50
PROVIDERS: PCP Internal Medicine; Visit Provider Clinical Nurse Specialist Psychiatric/Mental Health, Adult
DX: F41.1 Generalized anxiety disorder (principal); F43.10 Post-traumatic stress disorder, unspecified; G89.4 Chronic pain syndrome
CPT/HCPCS: 90792

== ENCOUNTER → 2024-11-17 09:50 | Outpatient (BNVA) | payer OTHER, MEDICAID, SELFPAY | PROVIDERS: PCP Internal Medicine; Visit Provider Clinical Nurse Specialist Psychiatric/Mental Health, Adult | DX: F41.1 Generalized anxiety disorder (principal); F43.10 Post-traumatic stress disorder, unspecified; G89.4 Chronic pain syndrome | CPT/HCPCS: 90792 ==

== ENCOUNTER 2024-12-15 12:51 | Outpatient (AMB) | payer OTHER, MEDICAID, SELFPAY ==
--- OUTSIDE RECORDS SUMMARY | 2024-12-10 05:30 | XMS_ITS ---
Author Organization [facility] [place] Address [address] [place] [address] Care Team Providers Care Application Lead Name Role Phone Tushar Fang Primary Care Provider Gorge Nath Unavailable [phone] Allergies No Known Allergies REASON FOR VISIT At Risk Footcare Medications Medication SIG (Take, Route, Frequency, Duration) Notes Start Date End Date Status Gabapentin 300 MG 1 capsule Orally Onc e a day Not-Taking DULoxetine HCl 20 MG Oral; Duration: 30 Days Active Extra Depth Orthopedic Shoes (1 Pair) with Customized Heat Molded Multidensity Innersoles (3 Pair) as directed Dx: NIDDM/Polyneuropathy (E11.42), Hammertoe Foot Deformity (M20.41,M20.42), Preulcerative Skin Lesion(s) (L85.1 Active Night Splint AFO - L1930 1 wear at rest; Duration: 30 days Not-Taking metFORMIN HCl 500 MG 1 tablet with a brayan l Orally Once a day Active glipiZIDE 10 MG 1 tablet 30 minutes before breakfast Orally Once a day Active Lisinopril 20 MG 1 tablet Orally Once a day Active Omeprazole 20 MG 1 capsule 30 minutes before morning meal Orally Once a day Active Atorvastatin Calcium 20 MG 1 tablet Orally Once a day Active oxyCODONE HCl 10 MG 1 tablet as needed Orally every 6 hrs Active Lantus SoloStar 100 UNIT/ML as directed Subcutaneous Act mouna Social History Tobacco Use: Social History Observation [...] Interpretation Negative Vital Signs Height 5ft5in in 12/10/2024 Weight 225 lbs 12/10/2024 BMI 37.44 kg/m2 12/10/2024 Blood pressure systolic 129 mm Hg 12/11/19 25 Blood pressure diastolic 70 mm Hg 025 Procedures Procedure Date Ordered Date Performed Result Body Sit e 15843-NHGWAJM NAIL, 1-5 12/10/2024 N/A 97711-WLQE SKIN LESIONS, 2 TO 4 12/10/2024 N/A S2920-QEWDAHRQ DYSTROPHIC NAILS ANY # 12/10/2024 N/A Encounters Encounter Location Date Provider Diagnosis [facility] [address] [address] 12/10/2024 Gorgejaki VelasquezPham Type 2 diabetes mellitus with diabetic polyneuropathy E11.42 and Tinea unguium B35.1 Assessments Encounter Date Diagnosis (ICD Code) Assessment Notes Treatment Notes Treatment Clinical Notes Section Notes 12/10/2024 Type 2 diabetes mellitus with diabetic polyneuropathy (ICD-10 - E11.42) 12/10/2024 Tinea unguium (ICD-10 - B35.1) 12/10/2024 Other Plan Of Treatment Pending Test Test Name Order Date 44357-VKPSPFC NAIL, 1-5 12/10/2024 57586-MYGN SKIN LESIONS, 2 TO 4 12/11/19 25 Z5826-WURBDASK DYSTROPHIC NAILS ANY # Next Appt Details Follow Up: prn, Reason: Provider Name:Gorge Frederick Pham , 03/29/2025 08:45:00 AM, [address] [place] [address], [phone], Procedure Notes * Category Sub-Category Detail Notes Keratoma Treatment Parring or Cutting o f [...] instrumentation by the physician of record - 18325 Debride Nails 1-5 Procedure: Due to the [...] necessary to maintain effective symptomatic relief - 83372 Nail Reduction Nail Reduction (-27) Trimming o [...] Moo OLSON JrDOB:1 06/03/1959 (64 yo M)Acc No.[id number]:12/10/2024 Progress Note Patient: Moo GRAF Jr Provider: Dov Nath DPM :1960 A ge:64 Y S ex:Male Date:12/10/2024 Address:[address] [place], [place] [id number] Pcp:Tushar Fang Subjective: * Chief Complaints: * A t Risk Footcare * HPI: A t Risk footcare: Pt States Last PCP Visit: D ate 0 09/13/2024 T oe pain: Treatments: R x shoes, states still needs - appt scheduled for Jan!. * ROS: G eneral/Constitutional: Nausea d enies. V omiting d enies. H lianet Thirst d enies. L oss appetite d enies. C hills d enies. F atigue d enies.?Fever d enies. N ight Sweats d enies. U nexplained weight loss d enies. U nexplained weight gain d enies. H EENTM: Dentures a dmits. D izziness d enies. G lasses/contacts a dmits. R etinopathy d enies. B lurred/double vision d enies. T MJ?denies. D ischarge/drainage d enies. I mplants d enies. S ore throat d enies. D ental implants d enies. H jannette of hearing d enies. D ifficulty chewing/swallowing/speaking d enies. N ose bleeds d enies. S ore mouth d enies. ? R espiratory: On Oxygen d enies. P neumonia/pleurisy d enies.?Bronchitis d enies. E mphysema d enies. C oughing d enies. C ough blood?denies. S hortness of breath d enies. W heezing d enies. C ardiovascular: Pacemaker d enies. M PUBLIC HEALTH POLICY ANALYST d enies. W PW d enies. C HF d enies. H eart attack d enies. S eptal defect d enies. R apid beat d enies. C hest pain d enies. A trial Fib. d enies. M urmur/Palpitations d enies. G astrointestinal: Hemorrhoids d enies. S tomach/Abdominal pain d enies. D ark blood stool d enies. I rritable bowel d enies. C onstipation d enies. D iarrhea d enies. H ematology: Swelling d enies. C lots d enies. V aricose Veins d enies. B ruising d enies. B leeding problem d enies. G enitourinary: Blood urine d enies. F requent/Painfu/urination/bladder control d enies. K idney stones d enies. I nfection (UTI) d enies. N ephropathy a dmits. s ex trans dis (STD) d enies. P rostate d enies. M usculoskeletal: Hammertoes a dmits. B unions d enies. B ack Pain a dmits. M uscle Cramps/ Resting d enies. M uscle cramps / walking d enies.?Generalized aches and pains a dmits. W eakness d enies. I nteg.: Schwab d enies. S cars d enies. C orns/calluses?admits. I ngrown nails a dmits. P ainful nails d enies. O pen Sores d enies. R ashes d enies. N eurologic: Difficulty sleeping d enies. B rain disorder d enies. N umbness a dmits. B alance trouble d enies. C onfusion d enies. F ainting/blackouts d enies. T ingling a dmits. T remors d enies. * Medical History: * Surgical History: k nee surgery 2017back surgery 1994cyst removal from tailbone 1995 * Hospitalization/Major Diagno stic Procedure: D enies Past Hospitalization * Family History: M other: unknown. F ather: unknown, diagnosed with Other malignant neoplasm of unspecified site. * Social History: T obacco Use: T obacco use other than smoking A re you an other tobacco user? N o Tobacco Control (Standard) T obacco use: C urrent smoker W hen did you start smoking? 0 05/15/1984 H ow many cigarettes a day do you smoke? 6 -10 H ow soon after you wake up do you smoke your first cigarette? 6 -30 minutes A re you interested in quitting? T hinking about quitting A dditional Findings: Tobacco user M oderate cigarette smoker (10-19 cigs/day) M iscellaneous: C affeine: yes, frequency:. Children: yes. Exercise: no. Marital status: single. Occupation: Retired. D rug/Alcohol: A VALERIA-C (Standard) D id you have a drink containing alcohol in the past year? N o P oints 0 I nterpretation N egative * Medications: T akingLantus SoloStar 100 UNIT/ML Solution Pen-injector as directed [...] tablet as needed Orally every 6 hrs metFORMIN HCl 500 MG Tablet 1 tablet with a meal Orally Once a day Extra Depth Orthopedic Shoes (1 Pair) with Customized Heat Molded Multidensity Innersoles (3 Pair) as directed Dx: NIDDM/Polyneuropathy (E11.42), Hammertoe Foot Deformity (M20.41,M20.42), Preulcerative Skin Lesion(s) (L85.1 DULoxetine HCl 20 MG Capsule Delayed Release Particles Oral Taking Lantus SoloStar 100 UNIT/ML Solution Pen-injector as [...] as needed Orally every 6 hrs Taking metFORMIN HCl 500 MG Tablet 1 tablet with a meal Orally Once a day Taking Extra Depth Orthopedic Shoes (1 Pair) with Customized Heat Molded Multidensity Innersoles (3 Pair) as directed Dx: NIDDM/Polyneuropathy (E11.42), Hammertoe Foot Deformity (M20.41,M20.42), Preulcerative Skin Lesion(s) (L85.1 Taking DULoxetine HCl 20 MG Capsule Delayed Release Particles Oral Not-Taking/PRNNight Splint AFO - L1930 1 wear at rest Gabapentin 300 MG Capsule 1 capsule Orally Once a day Medication List reviewed and reconciled with the patientNot-Taking/PRN Night Splint AFO - L1930 1 wear at rest Not-Taking/PRN Gabapentin 300 MG Capsule 1 capsule Orally Once a day Medication List reviewed and reconciled with the patient * Allergies: N .K.D.A.yes[Allergies Verified] Objective: * Vitals: H t: 5ft5in, Wt:225, BMI:37.44, Shoe size: 10, BP:129/70mm Hg, BS: not taken, Ht- cm: 165.1 cm, Wt-k.06 kg. * P ast Orders: L ab:HEMOGLOBIN A1C (GLYCOHEMOGLOBIN) (Order Date - 06/01/2024) (Collection Date & Time - 06/01/2024 02:12 PM) Value Reference Range HEMOGLOBIN A1C % (HH) 7.0 * Examination: O phthalmology Referral: DIABETES EYE EXAM P rocedure Performed: Y marely Maradiaga ate of Exam Performed 0 12/25/2023 D iabetic Retinopathy Screening: Y es R etinal Screening Performed: Y es F indings of Diabetic Eye Exam: n o retinopathy N eurological: SENSORY: N eurological exam demonstrates a loss of protective sensation by an absence of tested sensitivity to 5.07 [place]-Bri monofilament at 2 or more sites out of 5 total locations, each foot. N ails: NAILS are: E longated, overgrown, dystrophic, lytic, greater than 3mm thick, discolored and friable with crumbly malodorous subungual debris , TA , T5, all other nails not described with characteristics as possessing mycosis are elongated, overgrown, and dystrophic ( T 1, T2, T3, T4, T6, T7, T8, T9 ) . D ermatologic: SKIN FINDINGS: S kin exam reveals Keratotic lesion(s) located at , Plantar, Heel(s) , B/L. Assessment: * Assessment: 1. T inea unguium - B35.1 2 . T andrae 2 diabetes mellitus with diabetic polyneuropathy - E11.42 (Primary) Plan: * Treatment: * Procedures: D ebride Nails 1-5: Procedure: D ue to the clinical pathology outlined in the [...] necessary to maintain effective symptomatic relief - 79271. K eratoma Treatment: Parring or Cutting of Benign Hyperkeratotic Lesion(s) ( -56) 2-4 Lesions - Due to the at [...] stated and described in the exam ( P lantar, H eel(s) , B /L ) , were pared, and/or cut utilizing a sterile 15 blade, tissue nippers, and/or power dremel instrumentation by the physician of record - 67568. N ail Reduction: Nail Reduction ( -27) Trimming of all dystrophic nails - Due to the at risk nature of the patients medical condition as documented in the exam findings, performance of this nail treatment is medically necessary as its management by an unskilled/untrained nonprofessional would put this patients foot and overall health at risk. Therefore, the dystrophic nails, in locations as stated and described in the exam ( T 1, T2, T3, T4, T 6, T7, T8, T9 ) , were debrided by the phisician of record to reduce/remove overall nail length and girth, by manual and electrical means with use of a nail nipper and/or dremel, to more viable healthy nail plate or bed tissue - G0127. * Procedure Codes: G 0127 TRIMMING DYSTROPHIC NAILS ANY #, Modifiers: XS 52017 DEBRIDE NAIL, 1-5, Modifiers: XS 61565 TRIM SKIN LESIONS, 2 TO 4, Modifiers: XS * Preventive Medicine: Counseling: T obacco use: Patient counseled on the dangers of smoking and urged to quit: 0 12/10/2024 * Follow Up: p rn * Images: * Sign off status: Completed true * Provider: Dov Nath DPM Date: 0 12/10/2024 Generated for Rodrigo anthony/Davey/Yarely on: 0 12/15/2024 03:14 PM EDT History and Physical Notes * HPI (History of Present Illness) Category Sub-Category Detail Notes Category Not es Toe pain Treatments: Rx shoes, states still needs - appt scheduled for Oct! At Risk footcare Pt States Last PCP Visit: Date: Examination Category Sub-Category Detail Notes Category Not es Neurological SENSORY: Neurological exa m demonstrates a loss of protective sensation by an absence of tested sensitivity to 5.07 [place]ri monofilament at 2 or more sites out of 5 total locations, each foot Dermatologic SKIN FINDINGS: Skin exam reveal s Keratotic lesion(s) located at , Plantar, Heel(s) , B/L Ophthalmology Referral DIABETES EYE EXAM Procedu re Performed:: Yes Date of Exam Performed: 12/25/2023 Diabetic Retinopathy Screening:: [...]
--- NOTE | 2024-12-15 13:03 | MHC.OFFVISPS ---
Intake Intake Visit Reasons: f/u consultation Intake Note: 12/15/24: PHQ-9 8 LINCOLN-7 14 Moo reports some effect from Duloxetine, less anxiety, some improvement in pain mgt. He continues to report anergy, +motivation but anxiety, less engagement in activities he finds enjoyable. Stressors currently are a planned move this month to a new apartment after living in his current apartment for 26 years. He reports the new apartment is larger, brighter and he and his partner are looking forward to having the move completed. They currently are packing and sorting through 26 years of belongings. Notices some irritability at times, and at times feeling bothered when there are several people talking at the same time. Was able to attend a birthday celebration in the [facility] over the weekend and found that he was able to relax and enjoy himself. Another stress is that apartment above his was where partner's daughter -she had hoarding sx and the couple are cleaning out her belongings as well. Struggles with limitations due to physical injuries, however, both sets of children will help with the move he reports. Currently likes the effect of the Duloxetine and asks if we can increase. Ink Printer Required: No Allergies No Known Allergies (No Known Allergies*) Allergy (Verified 11/08/24 11:43) Medication List - Last Reconciled 12/15/24 by Glendy Sinclair APRN Accu-Chek Guide test strips (blood sugar diagnostic) once daily NS atorvastatin 20 mg PO DAILY blood-glucose meter (Accu-Chek Guide Me Glucose Meter) As directed cyclobenzaprine 10 mg PO BEDTIME dapagliflozin propanediol (Farxiga) 5 mg PO DAILY duloxetine 20 mg PO DAILY glipizide 10 mg PO BID insulin glargine (Lantus Solostar U-100 Insulin) 90 units (0.9 mL) subcut DAILY insulin lispro (Humalog KwikPen (U-100) Insulin) 10 units (0.1 mL) subcut TID 90 days lancets (Accu-Chek Softclix Lancets) As directed lisinopril mg PO DAILY metformin 500 mg PO BID omeprazole 20 mg PO DAILY oxycodone 10 mg PO TID PRN pen needle, diabetic (Pen Needle) use to inject medication 4 times daily HPI- Psychiatric Chief Complaint: f/u consultation HPI Past Psychiatric History: IP: Denies OP: Denies Trials: Klonopin Denies suicide attempts or ideation Denies hx of lis, AH,VH or sx of psychosis currently and by history Subjective Subjective Subjective Medication Compliance: Yes Side effects from medications: No Review of Systems Medical Review of Systems: unchanged Review of Systems Review of Systems Chronic knee pain-bilateral Mental Status Exam Mental Status Exam Patient Appearance: Appropriate Patient Orientation: Person, Place, Time and Situation Level of Consciousness: Alert Patient Behavior: Talkative Mood Description: Appropriate and Anxious Affect Description: Appropriate and Anxious Patient Cognition Impaired: No Ability to Follow Directions: Good Speech Pattern: Spontaneous Speech Memory Description: Intact Hallucinations: None Delusions: Not Present Thought Process: Distracted Thought Content: positive for Circumstantial, positive for Perseveration and positive for Suicidal Ideation (denies) Depressive Symptoms: Increased Anxiety and Increased Irritability (intermittent) Judgement: Good Assessment and Plan Assessment & Plan (1) Generalized anxiety disorder: Status: Acute Code(s): F41.1 - Generalized anxiety disorder (2) PTSD (post-traumatic stress disorder): Status: Acute Code(s): F43.10 - Post-traumatic stress disorder, unspecified (3) Cervical myofascial pain syndrome: Status: Acute Code(s): M79.18 - Myalgia, other site Plan Moo reports he finds the Duloxetine to be helpful. He requests an increase which we will trial. We will follow up in person in 4 weeks and he will call as needed should there be questions or symptoms of concern. Medications: New duloxetine 40 mg PO DAILY 30 caps 0RF Discontinued duloxetine Discontinued Reason: Doctor's Order 20 mg PO DAILY 30 caps 0RF Counseling and coordination of Care Medication management counseling: Effectiveness, Side effects, Dosing range, Duration and Drug interaction Details: I spent [] minutes reviewing the record, seeing the patient and documenting in the medical record. Counseling provided to the patient/caregiver as outlined below. Addressed patient/caregiver concerns regarding current medication regime including effective adherence. Addressed patient/caregiver concerns regarding diagnosis and prognosis including accuracy of diagnosis, prognosis over time, impact of diagnosis. Addressed patient/caregiver concerns regarding impact of recent stressors. [facility] Medical History PTSD (post-traumatic stress disorder) Generalized anxiety disorder Chronic pain syndrome Hyperlipidemia, unspecified Cervical myofascial pain syndrome Polyarthritis Frequent headaches HTN (hypertension) Diabetes mellitus, insulin dependent (IDDM), controlled Nicotine dependence, cigarettes, uncomplicated Surgical History History of partial knee replacement History of lumbar fusion History of left knee surgery History of back surgery Family History Sister Heart attack Pacemaker Father Cancer Social History Housing: House Alcohol intake: current Alcohol intake frequency: holidays/special occasions only Patient Tobacco Use Status: Current everyday Tobacco user Tobacco use type: Cigarette Cigarettes Per Day: 15 Years Smoked: 44 e-Cigarette/Vaping Use: Currently Using service: No Current occupational status: retired Cognitive needs: No Hearing needs: No Vision needs: Yes (reading glasses) Social History: One of nine children, 4 girls, 5 boys, pt is the youngest boy. One brother of hepatic disease. Raised by mother, stepfather. Parents have . Pt was in SPED throughout school, it was not good . I never went to school . 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 Two are struggling, two are doing well Eleven grandchildren plus girlfriends grandchildren as well. Family history of anxiety-mother Enjoys fishing Substance History: Alcohol- currently sober, history of excessive intake Substances-denies Caffeine- 1-3 daily Nicotine- ~1 carton or less per month Trauma History: Affirms Coding Level of Care Code Est Pt Level 3 (16555) Diagnoses Generalized anxiety disorder F41.1 PTSD (post-traumatic stress disorder) F43.10 Cervical myofascial pain syndrome M79.18
--- OUTSIDE RECORDS SUMMARY | 2024-12-15 15:14 | XMS_ITS | Patient Health Record ---
Author Organization [facility] miguel SappTelferner Address [address] [facility] [place] [address] Care Team Providers Care Records Management Manager Name Role Phone Tushar Fang Primary Care Provider [phone] Gorge Nath Unavailable [phone] Allergies No Known Allergies Results Component Value [...] 100 UNIT/ML as directed Subcutaneous Act mouna Gabapentin 300 MG 1 capsule Orally Onc [...] brayan l Orally Once a day Active oxyCODONE HCl 10 MG 1 tablet as needed Orally every 6 hrs Active Immunizations Vaccine Route Administration Date Status Comme nts Influenza Unknown 12/13/2022 Administered Influenza Unknown 12/14/2023 Administered Social History Tobacco Use: Social History [...] Problem Acquired hammer toe of right foot (6922397915472239 ) Other hammer toe(s) (acquired), right foot (M20.41) Active confirmed Response to treatment, Improvemen t Problem Acquired hammer toe of left foot (2875293460743061 ) Other hammer toe(s) (acquired), left foot (M20.42) Active confirmed Response to treatment, Improvemen t Problem Polyneuropathy due to type 2 diabetes mellitus (570752280) Type 2 diabetes mellitus with diabetic polyneuropathy (E11.42) Active confirmed Vital Signs Blood pressure diastolic 70 mm Hg 12/10/2024 Height 5ft5in in 12/10/2024 Blood pressure systolic 129 mm Hg 12/10/2024 Weight 225 lbs 12/10/2024 BMI 37.44 kg/m2 12/10/2024 Procedures Procedure Date Ordered Date Performed Result Body Sit e 77873-NWBKPXO NAIL, 1-5 03/02/2024 N/A 90202-Vrjewbri Plate 03/02/2024 N/A 18530-FXIO SKIN LESIONS, 2 TO 4 03/02/2024 N/A L4516-JHNUKELT DYSTROPHIC NAILS ANY # 03/02/2024 N/A 22226-IORPDUF NAIL, 1-5 06/01/2024 N/A 20736-Vmzsodfw Plate 06/01/2024 N/A 98847-RRXD SKIN LESIONS, 2 TO 4 06/01/2024 N/A H0683-YTICPRNH DYSTROPHIC NAILS ANY # 06/01/2024 N/A 64362-AWPJHMF NAIL, 1-5 09/07/2024 N/A 37893-Zbworufk Plate 09/07/2024 N/A 57136-YIZR SKIN LESIONS, 2 TO 4 09/07/2024 N/A H3968-MLBYDXIA DYSTROPHIC NAILS ANY # 09/07/2024 N/A 52429-BCRJACB NAIL, 1-5 12/10/2024 N/A 69888-NHTA SKIN LESIONS, 2 TO 4 12/10/2024 N/A M5752-KKUVHODV DYSTROPHIC NAILS ANY # 12/10/2024 N/A Encounters Encounter Location Date Provider Diagnosis [address] [address] 03/02/2024 Gorge Nath Type 2 diabetes mellitus with diabetic polyneuropathy E11.42 ; Tinea unguium B35.1 ; Ingrown nail L60.0 ; Pain in left foot M79.672 ; Plantar fasciitis of left foot M72.2 ; Calcaneal spur, left foot M77.32 ; Interstitial myositis of left foot M60.172 and Bursitis of left foot M77.[address] [address] 06/01/2024 Gorge Nath Type 2 diabetes mellitus with diabetic polyneuropathy E11.42 ; Tinea unguium B35.1 ; Plantar fasciitis of left foot M72.2 and Ingrown nail L60.[address] [address] 09/07/2024 Gorge Pham Type 2 diabetes mellitus with diabetic polyneuropathy E11.42 ; Tinea unguium B35.1 ; Ingrown nail L60.0 ; Other hammer toe(s) (acquired), right foot M20.41 and Other hammer toe(s) (acquired), left foot M20.[address] [address] 12/10/2024 Gorgejaki Nath Type 2 diabetes mellitus with diabetic polyneuropathy E11.42 and Tinea unguium B35.[address] [facility] [address] [address] 2024 Gorge Nath [facility] [address] [address] 09/16/2024 Gorge Pham Assessments Encounter Date Diagnosis (ICD Code) Assessment [...] 12/10/2024 Tinea unguium (ICD-10 - B35.1) 12/10/2024 Type 2 diabetes mellitus with diabetic polyneuropathy (ICD-10 - E11.42) 09/07/2024 Ingrown nail (ICD-10 - L60.0) 06/01/2024 Plantar fasciitis of left foot (ICD-10 - M72.2) 03/02/2024 Ingrown nail (ICD-10 - L60.0) 09/07/2024 Other hammer toe(s) (acquired), right foot (ICD-10 - M20.41) Patient Educated with: DIABETIC FOOT CARE INSTRUCTIONS. pdf (DIABETIC FOOT CARE INSTRUCTIONS. 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.172) 03/02/2024 Bursitis of left foot (ICD-10 - M77.52) 12/10/2024 Other Plan Of Treatment Pending Test Test Name Order Date X ray : Foot, left 3V 03/02/2024 91570-AVQIWKM NAIL, 1-5 06/01/2024 62738-CHZUNQF NAIL, 1-5 03/02/2024 85558-VJGTCTI NAIL, 1-5 09/07/2024 27799-BDPYVVZ NAIL, -5 12/10/2024 49408-LTEJYBP NAIL, -05/09/2023 52415-CQSUFEI NAIL, -07/18/2023 69229-SYUMBDZ NAIL, -09/30/2023 01187-UBPJZRI NAIL, -12/09/2023 69335-Bkudfhll Plate 12/09/2023 77062-Xozafydn Plate 07/18/2023 60188-Jokjtxkx Plate 05/09/2023 88049-Zlhqmsqe Plate 06/01/2024 12210-Lthyasqd Plate 09/07/2024 33053-Asneowtt Plate 03/02/2024 91479-Nuggcntb Plate Each Additional 08/2023 91688 I&D ABSCESS- SIMPLE,SINGLE 024 79487-CTGM SKIN LESIONS, 2 TO 4 09/30/19 24 16344-LTRL SKIN LESIONS, 2 TO 4 12/09/19 24 33638-JLSL SKIN LESIONS, 2 TO 4 07/18/19 24 44548-FZME SKIN LESIONS, 2 TO 4 05/09/19 24 88132-PUWJ SKIN LESIONS, 2 TO 4 03/02/20 24 24225-JBYG SKIN LESIONS, 2 TO 4 06/01/19 25 25562-JXPN SKIN LESIONS, 2 TO 4 09/08/19 25 30685-DTHV SKIN LESIONS, 2 TO 4 12/11/19 25 U5107-NMFOVYPT DYSTROPHIC NAILS ANY # T9622-DZSWQNWV DYSTROPHIC NAILS ANY # I6066-GJUXQXLN DYSTROPHIC NAILS ANY # M4065-AFBJEVEY DYSTROPHIC NAILS ANY # A1623-VGBGRTBX DYSTROPHIC NAILS ANY # E4300-ZLVOTHVF DYSTROPHIC NAILS ANY # Q9762-RZGVTXZX DYSTROPHIC NAILS ANY # G7366-IJVLCQPI DYSTROPHIC NAILS ANY # Next Appt Details Provider Name:Gorge Nath , 03/29/2025 08:45:00 AM, [address] [place], [address], Insurance Providers Payer Name Payer Address Payer Phone Subscriber Number Group Number Insured Name Patient Relationship to Insured Coverage Start Date Coverage End Date [employer] Claims [address] [address] [place] [phone] [id number] Moo Dempsey Self - patient is the insured Medical (General) History Medical History History ICD Code Anxiety Arthritis Back,Hip,and Knee pain CAD (Cholesterol) covid-19 Diabetic Numbness Reflux ( GERD) Joint implants/screws Surgical History Surgery Date(Month/Year) knee surgery 2017 back surgery 1994 cyst removal from [facility] 1995
--- OUTSIDE RECORDS SUMMARY | 2024-12-15 15:15 | XMS_ITS | Encounter Summary ---
Author Organization [employer] Address [address] [facility] [address] [place] [address] Care Team Providers Care Sack Lifter Name Role Phone Unavailable Primary Care Provider Unavailabl e Reason for Visit * Reason Onset Date Comments rs no show appt 04/22/2024 Encounter Details Date Type Department Care Team (Late st Contact Info) Description 04/22/2024 Telephone [facility] ADULT DENTAL [address] [place], [place] [phone] George Noel DDS [address] [place], [place] [phone] rs no show appt Social History Tobacco [...]
--- OUTSIDE RECORDS SUMMARY | 2024-12-15 15:15 | XMS_ITS | Encounter Summary ---
Author Organization [employer] Address [address] [facility] [address] [place] [address] Care Team Providers Care Manager Security Name Role Phone Unavailable Primary Care Provider Unavailabl e Encounter Details Date Type Department Care Team (Late st Contact Info) Description 10/07/2022 Abstract [facility] ADULT DENTAL [address] [place], [place] [phone] George Noel DDS [address] [place], [place] [phone] Social History Tobacco Use Types Packs/Day Years [...]
--- OUTSIDE RECORDS SUMMARY | 2024-12-15 15:15 | XMS_ITS | Encounter Summary ---
Author Organization [employer] Address [address] [facility] 7t [place] [address] Care Team Providers Care Heading Pinner Name Role Phone Unavailable Primary Care Provider Unavailabl e Encounter Details Date Type Department Care Team (Late st Contact Info) Description 06/13/2022 Abstract [facility] ADULT DENTAL [address] [place], [place] [phone] George Noel DDS [address] [place], [place] [phone] Social History Tobacco Use Types Packs/Day Years [...]
--- OUTSIDE RECORDS SUMMARY | 2024-12-15 15:15 | XMS_ITS | Clinical Summary ---
Author Organization [employer] Address [address] [facility] [address] [place] [address] Care Team Providers Care Director Physical Therapy Name Role Phone Unavailable Primary Care Provider [...] recession, localized 07/04/2022 Partially edentulous maxilla 06/21/2022 Social History Tobacco Use Types Packs/Day Years [...] Mass Index - - Plan of Treatment Health Maintenance Due Date Last Done Comments CT Colonography 1960 Colonoscopy 1960 Colorectal Cancer Screening 1960 Dental Prophylaxis 1960 Depression Screening 1960 FIT DNA/Cologuard 1960 FIT 1960 FOBT 1960 HIV Screening 1960 Lipid Panel 1960 SDOH Screening 1960 Sigmoidoscopy 1960 Disability Screening 1960 Alcohol/Substance Use Screening 1972 Hepatitis C Screening 1978 DTaP/Tdap/Td Vaccines (1 - Tdap) 1979 Pneumococcal Vaccine: 50+ Years (1 of 2 - PCV) 1979 Zoster Vaccines (1 of 2) 2010 COVID-19 Vaccine (3 - 2023-2 5 season) 2023 07/25/2020, 07/04/2020 Dental Oral Exam 09/21/2024 03/22/2024 Influenza Vaccine (#1) 2024 Dental X-Ray: Bitewings 03/23/2025 03/22/2024 Tobacco Screening [...] patient's age to complete this topic Meningococcal B Vaccine Aged Out No l onger eligible based on patient's age to complete [...] Procedure Name Priority Date/Time Associated Diagnosis Comments INTRAORAL - COMPLETE SERIES OF RADIOGRAPHIC IMAGES Routine 03/22/2024 11:30 AM EST PERIODIC ORAL EVALUATION - ESTABLISHED PATIENT Routine 03/22/2024 11:30 AM EST from Last 3 Months or Most Recently Relevant to Health Maintenance Insurance [facility] MEDICAID STAND ADULT
== END 2024-12-15 14:32 | disposition home or self-care (01) ==
LOC: HO.HOP 12:51
PROVIDERS: PCP Internal Medicine; Visit Provider Clinical Nurse Specialist Psychiatric/Mental Health, Adult
DX: F41.1 Generalized anxiety disorder (principal); F43.10 Post-traumatic stress disorder, unspecified; M79.18 Myalgia, other site
CPT/HCPCS: 99213

== ENCOUNTER 2024-12-27 10:37 | Outpatient (AMB) | payer OTHER, MEDICAID, SELFPAY ==
--- NOTE | 2024-12-27 10:39 | A.OFFPC_ITS ---
Vital Signs 12/27/24 10:41 Height 5 ft 5 in Weight 220 lb BMI 36.6 BP 138/68 Blood Pressure Location Lt brachial Position Sitting Respiration 17 Pulse 102 H Pulse Source Pulse Oximeter Pulse Oximetry (%) 96 Oxygen Delivery Method Room Air Intake Visit Reasons: Routine / 3 Month F/U Dr Frederick Hematology Nurse Required: No Accompanied by: Self / Same As Patient Allergies No Known Allergies (No Known Allergies*) Allergy (Verified 12/27/24 10:40) Tobacco use date assessed: 09/13/24 Dental Screening Dental Screen Date: 09/13/24 Did you have a dental visit in the last 12 months?: No Did you have a dental problem in the last 6 months where you did not have access to dental care?: Yes Was dental information given to patient?: Patient has dentist HPI HPI Comments History of Present Illness Details The patient is a 64-year-old male presenting with multiple concerns including poorly controlled diabetes mellitus type 2 and chronic pain issues. He reports limited control over his blood glucose levels, with a recent A1c level of 10.1%. Despite a regimented diabetic medication plan, which includes Farxiga, glipizide, metformin, Glargin, and Lispero, he struggles with glycemic control. His difficulties are compounded by dietary habits, as he reports irregular eating patterns, consuming primarily supper and minimal breakfast. He experiences chronic pain attributed to osteoarthritis, which affects his knees and shoulders, and has had a significant impact on his quality of life. He previously underwent partial knee surgery and has had multiple interventions for his back, including spinal rods insertion. His pain management has included previous use of fentanyl patches and current oxycodone usage. However, he describes progressing neuropathy, particularly with numbness in his feet, and his current regimen has not fully addressed his symptoms. The patient is also managing nicotine dependence, expressing a desire to quit smoking, and is currently contemplating the use of nicotine patches to aid cessation. Furthermore, he acknowledges a need to address his high cholesterol levels, with a history of elevated triglycerides and cholesterol necessitating an increase in atorvastatin dosage. He also has associated hypertension, which is monitored and currently stable with lisinopril. Medical History: - Type 2 Diabetes Mellitus - Osteoarthritis - Hyperlipidemia - Hypertension - Peripheral neuropathy - Chronic pain syndrome - Nicotine dependence - Adjustment disorder with mixed anxiety and depression Surgical History: - Partial knee arthroplasty [Date unspec ified] - Spinal surgery with placement of rods [Date unspecified] Medications: - Farxiga 5 mg for diabetes - Glipizide 10 mg twice daily for diabet es - Metformin 500 mg twice daily for diabe shoaib - Insulin Glargin 90 units daily plus Li spro 10 units with meals for diabetes - Atorvastatin 20 mg daily, recently inc reased to 40 mg for hyperlipidemia - Lisinopril for hypertension - Duloxetine 20 mg, transitioning to 40 mg for mood disorder and chronic pain - Oxycodone 10 mg three times daily for chronic pain control Family History: - Father from cancer - [No details on other family members' h ealt conditions discussed] Diagnostic Results: - Labs: Hemoglobin A1c at 10.1% in September [Year unspecified] Social; - Unemployed since 1993 due to disabilit y - 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 [employer] - Reports smoking, with plans to quit us ing nicotine patches - Does not exercise actively due to join Smule issues and pain - Consumes minimal breakfast and primari ly supper [facility] Medical History PTSD (post-traumatic stress disorder) Generalized anxiety disorder Chronic pain syndrome Hyperlipidemia, unspecified Cervical myofascial pain syndrome Polyarthritis Frequent headaches HTN (hypertension) Diabetes mellitus, insulin dependent (IDDM), controlled Nicotine dependence, cigarettes, uncomplicated Surgical History History of partial knee replacement History of lumbar fusion History of left knee surgery History of back surgery Family History Sister Heart attack Pacemaker Father Cancer Social History Housing: House Alcohol intake: current Alcohol intake frequency: holidays/special occasions only Patient Tobacco Use Status: Current everyday Tobacco user Tobacco use type: Cigarette Cigarettes Per Day: 15 Years Smoked: 44 e-Cigarette/Vaping Use: Currently Using service: No Current occupational status: retired Cognitive needs: No Hearing needs: No Vision needs: Yes (reading glasses) Questionnaire Thrive Questionnaire Date Thrive assessed: 09/13/24 LINCOLN-7 AMB Questionnaire LINCOLN-7 Date LINCOLN - 7 assessed: 09/13/24 Source: Developed by Drs. Lc Rose, Keisha Hall, Freeman Lyons and colleagues, with an educational leigha from [employer]. 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 - Reports smoking, with plans to quit using nicotine patches - Does not exercise actively due to joint issues and pain - Consumes minimal breakfast and primarily supper Physical exam (Primary Care) Vital Signs: Last Vital Signs Pulse 102 H 12/27/24 10:41 Resp 17 12/27/24 10:41 BP 138/68 12/27/24 10:41 Pulse Ox 96 12/27/24 10:41 Oxygen Delivery Method Room Air 12/27/24 10:41 BMI result Body Mass Index 36.6 Tobacco/Smoking Status: Tobacco use Status Tobacco use date assessed 09/13/24 12/27/24 10:41 Patient Tobacco Use Status Current everyday Tobacco 12/27/24 10:41 Tobacco use type Cigarette 12/27/24 10:41 e-Cigarette/Vaping Use Currently Using 12/27/24 10:41 Are you ready to quit: Yes Tobacco cessation counseling provided: Yes Relapse Prevention: discussed the importance of a supportive environment and discussed extending NRT Number of minutes spent counselin CPT code: 86283 - 4-10 Minutes Thrive Assessment: Date of Thrive Assessment Date Thrive assessed 09/13/24 12/27/24 10:41 Const Other: General: Alert and oriented, Well nourished, No acute distress. Eye: Pupils are equal, round and reactive to light, Intact accommodation, Extraocular movements are intact, Normal conjunctiva, Vision unchanged. HENT: Normocephalic, Atraumatic, Tympanic membranes are clear, Normal hearing, Oral mucosa is moist, No pharyngeal erythema, Ear canals patent. Respiratory: Lungs CTA bilaterally, No wheeze, Respirations are non-labored, Shortness of breath once in a while. Cardiovascular: Regular rate, Regular rhythm, S1 auscultated, S2 auscultated, No murmur, Good pulses equal in all extremities, Normal peripheral perfusion, No edema. Gastrointestinal: Soft, Non-tender, Non-distended, Normal bowel sounds, No organomegaly. Musculoskeletal: Normal range of motion, Normal strength, No tenderness, No swelling, No deformity, Normal gait. Complaints of shoulder pain and bad knees. Integumentary: Warm, Dry, [place], Intact. Neurologic: Alert, Oriented, Normal sensory, Normal motor function, No focal defects, Cranial Nerves II-XII are grossly intact, Normal deep tendon reflexes. Reports neuropathy in feet. Psychiatric: Cooperative, Appropriate mood & affect, Normal judgment. Coding Level of Care Code Est Pt Level 4 (31707) Est Pt Prev Care 40-64y(69444) Diagnoses Type 2 diabetes mellitus with unspecified complications E11.8 Hyperlipidemia, unspecified hyperlipidemia type E78.5 Hyperlipidemia type: unspecified Hypertension, unspecified type I10 Hypertension type: unspecified Nicotine dependence, cigarettes, uncomplicated F17.210 Generalized anxiety disorder F41.1 Chronic pain syndrome G89.4 Additional Codes Vital Signs *Quality* - CPT code: 54845 - 4-10 Minutes ([id number]) Assessment & Plan Assessment & Plan (1) Type 2 diabetes mellitus with unspecified complications: Comment: - Intensive blood glucose monitoring and adjustment of current a ntihyperglycemics. - Current Regiment: Lantus 90 units, lispro 10 units t.i.d., metformin 500 mg b.i.d., Farxiga 5 mg daily, glipizide 10 mg b.i.d. - Recommend dietary modifications emphasizing regular meals. - Referral to assistant printer floor covering to optimize diabetic management. Code(s): E11.8 - Type 2 diabetes mellitus with unspecified complications Category: Medical (2) Hyperlipidemia, unspecified: Comment: - Medication adjustment made with increased atorvastatin dose. (Increase from 20 to 40) - Monitor lipid levels for effect of adjustment. Code(s): E78.5 - Hyperlipidemia, unspecified Category: Medical Qualifiers: Hyperlipidemia type: unspecified Qualified Code(s): E78.5 - Hyperlipidemia, unspecified (3) HTN (hypertension): Comment: - Continue current lisinopril dose with re-evaluation of blood pressure management as needed. Code(s): I10 - Essential (primary) hypertension Category: Medical Qualifiers: Hypertension type: unspecified Qualified Code(s): I10 - Essential (primary) hypertension (4) Nicotine dependence, cigarettes, uncomplicated: Comment: (onset 15yo, 1ppd x 42yrs, now 3/4ppd, 40pyh) - Order Nicotine Pathces & Lung Cancer Screening Code(s): F17.210 - Nicotine dependence, cigarettes, uncomplicated Category: Medical (5) Generalized anxiety disorder: Comment: - Monitoring and up-titration of duloxetine dose as per psychiatrist's recommendation. Code(s): F41.1 - Generalized anxiety disorder Category: Medical (6) Chronic pain syndrome: Comment: - Initiated plan to taper off oxycodone due to dependency concerns; transitioning dosage over several weeks. - Referral to pain management services for alternative strategies. (Will gradually decrease 10mg TID to 5mg TID over 6 weeks) Code(s): G89.4 - Chronic pain syndrome Category: Medical Plan: Health Maintenance: - Plan for routine lung cancer screening given smoking history. - Regular foot care and monitoring due to diabetic neuropathy. Plan I discussed the current challenges and poor glycemic control of the patient's type 2 diabetes. We reviewed the comprehensive medication regimen and his high A1c levels, emphasizing dietary changes and consistent glucose monitoring. I recommended an assistant printer floor covering referral to better manage his diabetes. For chronic pain, I explained the necessity of titrating down oxycodones to minimize dependency risks, with pain management strategies being revisited at the [facility]. His smoking cessation was actively planned with a nicotine patch prescription post his current tobacco supply. We increased atorvastatin dosage due to elevated lipids and explored his neuropathic pain options, given gabapentin's ineffectiveness. With a focus on his comprehensive care, I highlighted the importance of routine health checks, especially considering his smoking history. Orders: Referrals Endocrinology Referral E11.8 - Type 2 diabetes mellitus with unspecified complications Lung Cancer Screening Referral F17.210 - Nicotine dependence, cigarettes, uncomplicated Pain Management Referral G89.4 - Chronic pain syndrome Medications: New 2 nicotine 1 patch transdermal DAILY 28 ea 3RF F17.210 - Nicotine dependence, cigarettes, uncomplicated atorvastatin (Lipitor) 40 mg PO BEDTIME 90 tabs 0RF oxycodone Partial Fill upon patient request. Take 2 tablets (10 mg) by mouth every morning, 2 tablets (10 mg) every evening, and 1 tablet (5 mg) at bedtime. for 2 weeks, then Take 2 tablets (10 mg) by mouth every morning, 1 tablet (5 mg) every evening, and 1 tablet (5 mg) at bedtime, then Take 1 tablet (5 mg) by mouth every morning, 1 tablet (5 mg) every evening, and 1 tablet (5 mg) at bedtime. 5 mg PO TID 168 tabs 0RF pain Discontinued oxycodone Discontinued Reason: Doctor's Order 10 mg PO TID PRN 90 tabs 0RF pain Patient Instructions: - Monitor your blood sugar levels regularly and record readings. - Start using nicotine patches as discussed once your current tobacco products are finished. - Adhere to the medication schedule for diabetes, lipid management, and hypertension. - Follow the oxycodone tapering schedule provided. - Schedule an appointment with an assistant printer floor covering and the pain management clinic. - Make dietary adjustments by eating regular meals to help control blood sugar. - Report any new or worsening symptoms to the office promptly.
[2024-12-27 10:41] VITALS: BP 138/68; PULSE 102; RESP 17; O2SAT 96; BMI 36.6
--- OUTSIDE RECORDS SUMMARY | 2024-12-27 13:43 | XMS_ITS | Encounter Summary ---
Author Organization [employer] Address [address] [facility] 7[address] [place] [address] Care Team Providers Care Frame Cleaner Name Role Phone Unavailable Primary Care Provider Unavailabl e Encounter Details Date Type Department Care Team (Late st Contact Info) Description 10/07/2022 Abstract [facility] ADULT DENTAL [address] [place], [place] [phone] George Noel DDS [address], [place] [phone] Social History Tobacco Use Types Packs/Day Years [...]
--- OUTSIDE RECORDS SUMMARY | 2024-12-27 13:43 | XMS_ITS | Encounter Summary ---
Author Organization [employer] Address [address] [facility] [address] [place] [address] Care Team Providers Care Global Sales Executive Name Role Phone Unavailable Primary Care Provider Unavailabl e Reason for Visit * Reason Onset Date Comments rs no show appt 04/22/2024 Encounter Details Date Type Department Care Team (Late st Contact Info) Description 04/22/2024 Telephone C ADULT DENTAL [address], [place] [phone] George Noel DDS [address], [place] [phone] rs no show appt Social History Tobacco [...]
--- OUTSIDE RECORDS SUMMARY | 2024-12-27 13:43 | XMS_ITS | Clinical Summary ---
Author Organization [employer] Address [address] [facility] [address] [place] [address] Care Team Providers Care Probation Manager Name Role Phone Unavailable Primary Care Provider [...] 1979 Zoster Vaccines (1 of 2) 2010 Dental Oral Exam 09/21/2024 03/22/2024 COVID-19 Vaccine (3 - 2024-2 6 season) 2024 07/25/2020, 07/04/2020 Influenza Vaccine (#1) 2024 Dental X-Ray: Bitewings [...] Most Recently Relevant to Health Maintenance Insurance [facility] MEDICAID STAND ADULT
--- OUTSIDE RECORDS SUMMARY | 2024-12-27 13:43 | XMS_ITS | Patient Health Record ---
Author Organization [facility] [employer] Address [address] [place] [address] Care Team Providers Care Animal Husbandman Name Role Phone Tushar Fang Primary Care Provider [phone] Gorge Nath Unavailable [phone] Allergies No Known Allergies Results Component Value [...] Problem Acquired hammer toe of right foot (2964519172747402 ) Other hammer toe(s) (acquired), right foot (M20.41) Active confirmed Response to treatment, Improvemen t Problem Acquired hammer toe of left foot ([id number] ) Other hammer toe(s) (acquired), left foot (M20.42) Active confirmed Response to treatment, Improvemen t Problem Polyneuropathy due to type 2 diabetes mellitus (331794588) Type 2 diabetes mellitus with diabetic polyneuropathy (E11.42) Active confirmed Vital Signs Blood pressure diastolic 70 mm Hg 12/10/2024 Height 5ft5in in 12/10/2024 Blood pressure systolic 129 mm Hg 12/10/2024 Weight 225 lbs 12/10/2024 BMI 37.44 kg/m2 12/10/2024 Procedures Procedure Date Ordered Date Performed Result Body Sit e 25851-YKLPUUR NAIL, 1-5 03/02/2024 N/A 03258-Hjfhendp Plate 03/02/2024 N/A 39778-LNYA SKIN LESIONS, 2 TO 4 03/02/2024 N/A M6544-QLSSLKBZ DYSTROPHIC NAILS ANY # 03/02/2024 N/A 43748-YGNEKHV NAIL, 1-5 06/01/2024 N/A 91571-Ipshixuh Plate 06/01/2024 N/A 46218-GDKD SKIN LESIONS, 2 TO 4 06/01/2024 N/A E4680-VZSNNURQ DYSTROPHIC NAILS ANY # 06/01/2024 N/A 97076-DUARJOM NAIL, 1-5 09/07/2024 N/A 19080-Sakytysr Plate 09/07/2024 N/A 84977-MKVK SKIN LESIONS, 2 TO 4 09/07/2024 N/A P8670-WKINCPZT DYSTROPHIC NAILS ANY # 09/07/2024 N/A 87521-RUGLFEC NAIL, 1-5 12/10/2024 N/A 71088-VRLQ SKIN LESIONS, 2 TO 4 12/10/2024 N/A A5774-WABJANFN DYSTROPHIC NAILS ANY # 12/10/2024 N/A Encounters Encounter Location Date Provider Diagnosis [address] [phone] 03/02/2024 Gorge Nath Type 2 diabetes mellitus with diabetic polyneuropathy E11.42 ; Tinea unguium B35.1 ; Ingrown nail L60.0 ; Pain in left foot M79.672 ; Plantar fasciitis of left foot M72.2 ; Calcaneal spur, left foot M77.32 ; Interstitial myositis of left foot M60.172 and Bursitis of left foot M77.[address] [address] 06/01/2024 Gorge Nath Type 2 diabetes mellitus with diabetic polyneuropathy E11.42 ; Tinea unguium B35.1 ; Plantar fasciitis of left foot M72.2 and Ingrown nail L60.[address] [address] 09/07/2024 Gorge Pham Type 2 diabetes mellitus with diabetic polyneuropathy E11.42 ; Tinea unguium B35.1 ; Ingrown nail L60.0 ; Other hammer toe(s) (acquired), right foot M20.41 and Other hammer toe(s) (acquired), left foot M20.[address] [address] 12/10/2024 Gorgejkai Nath Type 2 diabetes mellitus with diabetic polyneuropathy E11.42 and Tinea unguium B35.1 [facility] [address] [address] 2024 Gorge Nath [facility] [address] [address] 09/16/2024 Gorge Pham Assessments Encounter Date Diagnosis [...] X ray : Foot, left 3V 03/02/2024 33765-DJJXWMB NAIL, 1-5 06/01/2024 77882-FRNPGVI NAIL, 1-5 03/02/2024 72419-GQJBZTK NAIL, 1-5 09/07/2024 40199-WHEIERE NAIL, -5 12/10/2024 33699-DETDQSJ NAIL, -05/09/2023 64845-FOYXNYY NAIL, -07/18/2023 01111-HOQCMYC NAIL, -09/30/2023 91091-UWCPFXB NAIL, -12/09/2023 75929-Wmtrqwje Plate 12/09/2023 83344-Ezuggwcc Plate 07/18/2023 71386-Urqtzbvc Plate 05/09/2023 98972-Sdecloqa Plate 06/01/2024 53958-Komrqhvl Plate 09/07/2024 80510-Qsiptcbk Plate 03/02/2024 96116-Aneqaqta Plate Each Additional 08/2023 10739 I&D ABSCESS- SIMPLE,SINGLE 024 55716-LFVL SKIN LESIONS, 2 TO 4 09/30/19 24 98342-SDRS SKIN LESIONS, 2 TO 4 12/09/19 24 87759-YQEJ SKIN LESIONS, 2 TO 4 07/18/19 24 44841-YTZR SKIN LESIONS, 2 TO 4 05/09/19 24 99974-YHCB SKIN LESIONS, 2 TO 4 03/02/20 24 13224-DDTR SKIN LESIONS, 2 TO 4 06/01/19 25 15127-HTSR SKIN LESIONS, 2 TO 4 09/08/19 25 58567-NGOU SKIN LESIONS, 2 TO 4 12/11/19 25 F4349-ANNSMJQZ DYSTROPHIC NAILS ANY # S1918-ZLMGREOS DYSTROPHIC NAILS ANY # I3159-ADEQMSWE DYSTROPHIC NAILS ANY # Z4285-MHWTIIAQ DYSTROPHIC NAILS ANY # Y5190-TEYZTWRD DYSTROPHIC NAILS ANY # R2860-PELAGWIC DYSTROPHIC NAILS ANY # F3920-SREUIAZU DYSTROPHIC NAILS ANY # M3948-SRNUNCZU DYSTROPHIC NAILS ANY # Next Appt Details Provider Name:Gorge Nath , 03/29/2025 08:45:00 AM, [address] [place], [address], Insurance Providers Payer Name Payer Address Payer Phone Subscriber Number Group Number Insured Name Patient Relationship to Insured Coverage Start Date Coverage End Date [employer] Claims [address] [address] [place] [id number] Moo Dempsey Self - patient is the insured Medical (General) History Medical History History ICD Code Anxiety Arthritis Back,Hip,and Knee pain CAD (Cholesterol) covid-19 Diabetic Numbness Reflux ( GERD) Joint implants/screws Surgical History Surgery Date(Month/Year) knee surgery 2017 back surgery 1994 cyst removal from [facility] 1995
--- OUTSIDE RECORDS SUMMARY | 2024-12-27 13:43 | XMS_ITS | Encounter Summary ---
Author Organization [employer] Address [address] [facility] [address] [place] [address] Care Team Providers Care Data Report Analyst Name Role Phone Unavailable Primary Care Provider Unavailabl e Encounter Details Date Type Department Care Team (Late st Contact Info) Description 06/13/2022 Abstract [facility] ADULT DENTAL [address] [place], [place] [phone] George Noel DDS [address] [place], [place] [phone] Social History Tobacco Use Types Packs/Day Years [...]
== END 2024-12-27 11:16 | disposition home or self-care (01) ==
PROVIDERS: PCP Student in an Organized Health Care Education/Training Program; Visit Provider Student in an Organized Health Care Education/Training Program
DX: E11.8 Type 2 diabetes mellitus with unspecified complications (principal); E78.5 Hyperlipidemia, unspecified; I10 Essential (primary) hypertension; F17.210 Nicotine dependence, cigarettes, uncomplicated; F41.1 Generalized anxiety disorder; G89.4 Chronic pain syndrome

== ENCOUNTER 2025-01-12 13:24 | Outpatient (AMB) | payer OTHER, MEDICAID, SELFPAY ==
--- NOTE | 2025-01-12 13:35 | MHC.OFFVISPS ---
Intake Intake Visit Reasons: f/u consultation Financial Assistance Specialist Required: No Allergies No Known Allergies (No Known Allergies*) Allergy (Verified 12/27/24 10:40) Medication List - Last Reconciled 01/12/25 by Glendy Sinclair APRN Accu-Chek Guide test strips (blood sugar diagnostic) once daily NS atorvastatin (Lipitor) 40 mg PO BEDTIME blood-glucose meter (Accu-Chek Guide Me Glucose Meter) As directed cyclobenzaprine 10 mg PO BEDTIME dapagliflozin propanediol (Farxiga) 5 mg PO DAILY duloxetine 40 mg PO DAILY glipizide 10 mg PO BID insulin glargine (Lantus Solostar U-100 Insulin) 90 units (0.9 mL) subcut DAILY insulin lispro (Humalog KwikPen (U-100) Insulin) 10 units (0.1 mL) subcut TID 90 days lancets (Accu-Chek Softclix Lancets) As directed lisinopril mg PO DAILY metformin 500 mg PO BID nicotine 1 patch transdermal DAILY omeprazole 20 mg PO DAILY oxycodone 5 mg PO TID 4 weeks oxycodone 5 mg PO TID pen needle, diabetic As directed pen needle, diabetic (Ultra-Fine Pen Needle) USE FOUR TIMES DAILY HPI- Psychiatric Chief Complaint: f/u consultation HPI Narrative: Moo reports he has completed his family move to a new home. He is satisfied with the result, however, with increase in knee, back and shoulder pain as a result of increased physical activity, lifting and associated tasks with the move. Reports tooth pain as well which he will be seeing his dentist to assess. As a result of increase in pain, he reports a decrease in energy. Duloxetine was increased to 40 mg last visit. Call to pt's pharmacy with pt. They did not increase the dose per insurance. They will increase today if 20 mg two tabs are sent vs 40 mg tab. Moo reports 20 mg to be helpful with sx. Sleep he reports is ~630pm-7pm to 1-2am with ELENA. Discussed sleep hygiene. Moo denies medication SE, however, does report chronic urinary retention, a possible SE of Duloxetine-he reports the retention was a symptom prior to the Duloxetine, however, we discussed ongoing monitoring of this symptom and risks. He reports he has an appointment to discuss this with primary team on 02/07/25. He asks to continue with medication titration at this time. Past Psychiatric History: IP: Denies OP: Denies Trials: Klonopin Denies suicide attempts or ideation Denies hx of lis, AH,VH or sx of psychosis currently and by history Subjective Subjective Subjective Medication Compliance: Yes Side effects from medications: No (watching urinary retention sx which pt reports existed prior to meds) Review of Systems Medical Review of Systems: unchanged Review of Systems Review of Systems tooth pain Back, Knee, Shoulder pain Mental Status Exam Mental Status Exam Patient Appearance: Appropriate Patient Orientation: Person, Place, Time and Situation Level of Consciousness: Alert Patient Behavior: Talkative and Good Eye Contact Mood Description: Calm and Appropriate Affect Description: Calm and Appropriate Patient Cognition Impaired: No Ability to Follow Directions: Good Speech Pattern: Spontaneous Speech Memory Description: Intact Hallucinations: None Delusions: Not Present Thought Process: Intact and Goal Oriented Thought Content: positive for Intact, positive for Goal Oriented and positive for Suicidal Ideation (denies) Depressive Symptoms: Difficulty Sleeping (ELENA, sleeping 6:30-7pm to 1-2 am) Judgement: Good Assessment and Plan Assessment & Plan (1) Generalized anxiety disorder: Status: Acute Code(s): F41.1 - Generalized anxiety disorder (2) PTSD (post-traumatic stress disorder): Status: Acute Code(s): F43.10 - Post-traumatic stress disorder, unspecified Plan Increase Duloxetine to 40 mg daily (discussed with pharmacy,insurance who have now approved dosage increase) Pt has a previous sx of urinary retention. Will have appt for evaluation of this sx on 02/07. Will monitor as it can be a SE of Duloxetine, however, pt reports this sx predated medication trial and sx have not increased as of this time. Education provided should sx increase. Medications: New duloxetine 40 mg (2 x 20 mg) PO DAILY 60 caps 0RF Discontinued duloxetine Discontinued Reason: Doctor's Order 40 mg PO DAILY 30 caps 0RF Counseling and coordination of Care Medication management counseling: Effectiveness, Side effects, Dosing range, Duration, Drug interaction and Adherence Diagnosis and Prognosis Counseling: Impact of diagnosis on life functions Details: I spent [] minutes reviewing the record, seeing the patient and documenting in the medical record. Counseling provided to the patient/caregiver as outlined below. Addressed patient/caregiver concerns regarding current medication regime including effective adherence. Addressed patient/caregiver concerns regarding diagnosis and prognosis including accuracy of diagnosis, prognosis over time, impact of diagnosis. Addressed patient/caregiver concerns regarding impact of recent stressors. [facility] Medical History PTSD (post-traumatic stress disorder) Generalized anxiety disorder Chronic pain syndrome Hyperlipidemia, unspecified Cervical myofascial pain syndrome Polyarthritis Frequent headaches HTN (hypertension) Diabetes mellitus, insulin dependent (IDDM), controlled Nicotine dependence, cigarettes, uncomplicated Surgical History History of partial knee replacement History of lumbar fusion History of left knee surgery History of back surgery Family History Sister Heart attack Pacemaker Father Cancer Social History Housing: House Alcohol intake: current Alcohol intake frequency: holidays/special occasions only Patient Tobacco Use Status: Current everyday Tobacco user Tobacco use type: Cigarette Cigarettes Per Day: 15 Years Smoked: 44 e-Cigarette/Vaping Use: Currently Using service: No Current occupational status: retired Cognitive needs: No Hearing needs: No Vision needs: Yes (reading glasses) Social History: One of nine children, 4 girls, 5 boys, pt is the youngest boy. One brother of hepatic disease. Raised by mother, stepfather. Parents have . Pt was in SPED throughout school, it was not good . I never went to school . 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 Two are struggling, two are doing well Eleven grandchildren plus girlfriends grandchildren as well. Family history of anxiety-mother Enjoys fishing Substance History: Alcohol- currently sober, history of excessive intake Substances-denies Caffeine- 1-3 daily Nicotine- ~1 carton or less per month Trauma History: Affirms Coding Level of Care Code Est Pt Level 3 (95855) Diagnoses Generalized anxiety disorder F41.1 PTSD (post-traumatic stress disorder) F43.10
--- OUTSIDE RECORDS SUMMARY | 2025-01-12 14:36 | XMS_ITS | Clinical Summary ---
Author Organization [employer] Address [address] [place] [address] Care Team Providers Care Combine Inspector Name Role Phone Unavailable Primary Care Provider [...] Most Recently Relevant to Health Maintenance Insurance [facility] MEDICAID STAND ADULT
--- OUTSIDE RECORDS SUMMARY | 2025-01-12 14:36 | XMS_ITS | Encounter Summary ---
Author Organization [employer] Address [address] [place] [address] Care Team Providers Care Fire Crew Specialist Name Role Phone Unavailable Primary Care Provider Unavailabl e Encounter Details Date Type Department Care Team (Late st Contact Info) Description 10/07/2022 Abstract [facility] [address] [place], [place] [phone] George Noel DDS [address] [place], [place] [phone] Social History Tobacco Use Types Packs/Day Years [...]
--- OUTSIDE RECORDS SUMMARY | 2025-01-12 14:36 | XMS_ITS | Encounter Summary ---
Author Organization [employer] Address [address] [facility] [address] [facility] [address] [place] [address] Care Team Providers Care Chief Growth Officer Name Role Phone Unavailable Primary Care Provider Unavailabl e Encounter Details Date Type Department Care Team (Late st Contact Info) Description 06/13/2022 Abstract [facility] ADULT DENTAL [address] [place], [place] [phone] George Noel DDS [address], [place] [phone] Social History Tobacco Use Types Packs/Day Years [...]
--- OUTSIDE RECORDS SUMMARY | 2025-01-12 14:36 | XMS_ITS | Encounter Summary ---
Author Organization [employer] Address [address] [facility] [address] [place] [address] Care Team Providers Care Personal Investment Adviser Name Role Phone Unavailable Primary Care Provider Unavailabl e Reason for Visit * Reason Onset Date Comments rs no show appt 04/22/2024 Encounter Details Date Type Department Care Team (Late st Contact Info) Description 04/22/2024 Telephone [facility] ADULT DENTAL [address] [place], [place] [phone] George Noel DDS [address] [place], [place] [phone] rs no show appt Social History Tobacco [...]
== END 2025-01-12 14:35 | disposition home or self-care (01) ==
LOC: HO.HOP 13:24
PROVIDERS: PCP Student in an Organized Health Care Education/Training Program; Visit Provider Clinical Nurse Specialist Psychiatric/Mental Health, Adult
DX: F41.1 Generalized anxiety disorder (principal); F43.10 Post-traumatic stress disorder, unspecified
CPT/HCPCS: 99213

== ENCOUNTER 2025-02-07 08:53 | Outpatient (AMB) | payer OTHER, MEDICAID, SELFPAY ==
[2025-02-07 08:45] VITALS: BP 136/84; PULSE 93; TEMP 36.7; O2SAT 98; BMI 37.8
--- NOTE | 2025-02-07 08:45 | A.OFFPC_ITS ---
Vital Signs 02/07/25 08:45 Height 5 ft 5 in Weight 227 lb 4 oz BMI 37.8 BP 136/84 Blood Pressure Location Lt brachial Position Sitting Pulse 93 Pulse Source Pulse Oximeter Temp 98.1 F Temp Source Temporal Artery Scan Pulse Oximetry (%) 98 Oxygen Delivery Method Room Air Intake Visit Reasons: 6 week f/u Ear Pull Machine Operator Required: No Accompanied by: Self / Same As Patient Allergies No Known Allergies (No Known Allergies*) Allergy (Verified 02/07/25 08:46) Medication List - Last Reconciled 02/07/25 by Quentin Weinberg MD Accu-Chek Guide test strips (blood sugar diagnostic) once daily NS atorvastatin (Lipitor) 40 mg PO BEDTIME blood-glucose meter (Accu-Chek Guide Me Glucose Meter) As directed cyclobenzaprine 10 mg PO BEDTIME dapagliflozin propanediol (Farxiga) 5 mg PO DAILY duloxetine 40 mg (2 x 20 mg) PO DAILY glipizide 10 mg PO BID insulin glargine (Lantus Solostar U-100 Insulin) 90 units (0.9 mL) subcut DAILY insulin lispro (Humalog KwikPen (U-100) Insulin) 10 units (0.1 mL) subcut TID 90 days lancets (Accu-Chek Softclix Lancets) As directed lisinopril mg PO DAILY metformin 500 mg PO BID nicotine 1 patch transdermal DAILY omeprazole 20 mg PO DAILY oxycodone 5 mg PO TID 4 weeks pen needle, diabetic As directed pen needle, diabetic (Ultra-Fine Pen Needle) USE FOUR TIMES DAILY tamsulosin 0.4 mg PO BEDTIME Tobacco use date assessed: 02/07/25 Fall risk assessment: No Falls in past year Last assessed Fall Risk: 02/07/25 Dental Screening Dental Screen Date: 02/07/25 Did you have a dental visit in the last 12 months?: No Did you have a dental problem in the last 6 months where you did not have access to dental care?: No HPI HPI Comments History of Present Illness Details The patient is a 64-year-old male presenting with difficulty urinating. He reports difficulty initiating urination, requiring him to hold his breath to start a stream, and notes the process takes a long time. He also woke up this morning with left groin and lower back pain. He reports a history of pulling a groin muscle last May. The patient has a history of poorly controlled type 2 diabetes, with a recent HbA1c of 10. He has associated peripheral neuropathy in his feet and numbness in two fingers of his hand. He was previously on gabapentin for nerve pain, which was ineffective. He has not been checking his blood sugars recently as his supplies are packed from a recent move. His medical history also includes hypertension, hyperlipidemia, and post- traumatic stress disorder (PTSD). He is on long-term oxycodone for chronic pain. The patient smokes about one pack of cigarettes every two days and has a history of heavy alcohol consumption. He is pending follow-up with endocrinology, a pain clinic, and for lung cancer screening. Medical History: - Type 2 diabetes mellitus with peripher al neuropathy - Hypertension - Hyperlipidemia - Post-traumatic stress disorder (PTSD) - History of groin muscle strain - History of heavy alcohol use Medications: - Atorvastatin 40 mg for high cholestero l - Insulin, 90 units daily and 10 units a fter meals, for diabetes - Farxiga for diabetes - Glipizide 10 mg twice a day for diabet es - Lisinopril 20 mg for high blood pressu re - Metformin 500 mg twice a day for diabe shoaib - Oxycodone 5 mg for pain - Duloxetine 40 mg for PTSD Diagnostic Results: - Labs: HbA1c is 10. Social History: - Tobacco use: Smokes approximately a pa ck every two days. - Alcohol use: Reports a history of heav y drinking, nearly every day in the past. - Housing: Recently moved after living i n a house for 26 years because the landlord sold the property. - Stressors: Reports significant stress from moving and the recent of his girlfriend's daughter. [facility] Medical History (Updated 02/07/25 @ 09:25 by Quentin Weinberg MD) Peripheral neuropathy BPH (benign prostatic hyperplasia) PTSD (post-traumatic stress disorder) Generalized anxiety disorder Chronic pain syndrome Hyperlipidemia, unspecified Cervical myofascial pain syndrome Polyarthritis Frequent headaches HTN (hypertension) Diabetes mellitus, insulin dependent (IDDM), controlled Nicotine dependence, cigarettes, uncomplicated Surgical History History of partial knee replacement History of lumbar fusion History of left knee surgery History of back surgery Family History Sister Heart attack Pacemaker Father Cancer Social History Housing: House Alcohol intake: current Alcohol intake frequency: holidays/special occasions only Patient Tobacco Use Status: Current everyday Tobacco user Tobacco use type: Cigarette Cigarettes Per Day: 15 Years Smoked: 44 e-Cigarette/Vaping Use: Currently Using service: No Current occupational status: retired Cognitive needs: No Hearing needs: No Vision needs: Yes (reading glasses) Questionnaire PHQ-9 Over the last 2 weeks, how often have you been bothered by any of the following problems? 1. Little interest or pleasure in doing things: not at all 2. Feeling down, depressed, or hopeless: several days 3. Trouble falling or staying asleep, or sleeping too much: not at all 4. Feeling tired or having little energy: several days (not much energy) 5. Poor appetite or overeating: not at all 6. Feeling bad about yourself - or that you are a failure or have let yourself or your family down: not at all 7. Trouble concentrating on things, such as reading the newspaper or watching television: not at all 8. Moving or speaking so slowly that other people could have noticed. Or the opposite - being so fidgety or restless that you have been moving around a lot more than usual: not at all 9. Thoughts that you would be better off or of hurting yourself in some way: not at all Total score: 2 Source: Developed by Drs. Lc Rose, Keisha Hall, Freeman Lyons and colleagues, with an educational leigha from [employer]. Thrive Questionnaire Date Thrive assessed: 02/07/25 I am a: Patient Within the past 12 months, did the food you bought not last and you didn't have the money to get more?: Never true Within the past 12 months, did you worry whether your food would run out before you got money to buy more?: Never true Do you have trouble paying for medicines?: No Do you have trouble getting transportation to medical appointments?: No Do you have trouble paying your heating and electricity bill?: No Do you have trouble taking care of your child, family member or friend?: No Do you have trouble with day-to-day activities such as bathing, preparing meals, shopping, managing finances, etc.?: No Are you currently unemployed and looking for a job?: No Are you interested in more education?: No THRIVE Score: 0 AUDIT C Alcohol Use Questionnaire (AUDIT-C) 1. How often do you have a drink containing alcohol?: Never 3. How often do you have six or more drinks on one occasion?: Never Total Score: 0 LINCOLN-7 AMB Questionnaire LINCOLN-7 Date LINCOLN - 7 assessed: 02/07/25 Feeling nervous, anxious, or on edge: 0 = Not at all Not being able to stop or control worryin = Not at all Trouble relaxin = Not at all Being so restless that it is hard to sit still: 0 = Not at all Becoming easily annoyed or irritable: 0 = Not at all Feeling afraid as if something awful might happen: 0 = Not at all Source: Developed by Drs. Lc Rose, Keisha Hall, Freeman Lyons and colleagues, with an educational leigha from [employer]. Review of Systems Narrative - Genitourinary: Reports urinary hesitancy, straining to urinate, and a weak stream. - Musculoskeletal: Reports new onset of left groin pain and lower back pain. - Neurological: Reports numbness in two fingers and feet. - Constitutional: Denies nausea and vomiting. All systems reviewed & are unremarkable except as reviewed in HPI and above Physical exam (Primary Care) Vital Signs: Last Vital Signs Temp 98.1 F 02/07/25 08:45 Pulse 93 02/07/25 08:45 BP 136/84 02/07/25 08:45 Pulse Ox 98 02/07/25 08:45 Oxygen Delivery Method Room Air 02/07/25 08:45 BMI result Body Mass Index 37.8 Tobacco/Smoking Status: Tobacco use Status Tobacco use date assessed 02/07/25 02/07/25 08:47 Patient Tobacco Use Status Current everyday Tobacco 02/07/25 08:47 Tobacco use type Cigarette 02/07/25 08:47 e-Cigarette/Vaping Use Currently Using 02/07/25 08:47 Are you ready to quit: Yes Tobacco cessation counseling provided: Yes Relapse Prevention: discussed the importance of a supportive environment and discussed extending NRT Number of minutes spent counselin CPT code: 58102 - 4-10 Minutes PHQ-9: PHQ-9 Score PHQ-9: Total score 2 02/07/25 09:17 Thrive Assessment: Date of Thrive Assessment Date Thrive assessed 02/07/25 02/07/25 08:47 Narrative General: Alert and oriented, Well nourished, No acute distress. Eye: Pupils are equal, round and reactive to light, Intact accommodation, Extraocular movements are intact, Normal conjunctiva, Vision unchanged. HENT: Normocephalic, Atraumatic, Tympanic membranes are clear, Normal hearing, Oral mucosa is moist, No pharyngeal erythema, Ear canals patent. Respiratory: Lungs CTA bilaterally, No wheeze, Respirations are non-labored. Cardiovascular: Regular rate, Regular rhythm, S1 auscultated, S2 auscultated, No murmur, Good pulses equal in all extremities, Normal peripheral perfusion, No edema. Gastrointestinal: Soft, Non-tender, Non-distended, Normal bowel sounds, No organomegaly. Musculoskeletal: Normal range of motion, Normal strength, No tenderness, No swelling, No deformity, Normal gait. Integumentary: Warm, Dry, [place], Intact. Neurologic: Alert, Oriented, Normal sensory, Normal motor function, No focal defects, Cranial Nerves II-XII are grossly intact, Normal deep tendon reflexes. Noted numbness in two fingers and neuropathy in feet. Psychiatric: Cooperative, Appropriate mood & affect, Normal judgment. Coding Level of Care Code Est Pt Level 4 (17592) Complex EM visit Add On G2211 Diagnoses Benign prostatic hyperplasia with urinary frequency N40.1; R35.0 Lower urinary tract symptom presence: symptoms present Lower urinary tract symptom detail: urinary frequency Hypertension, unspecified type I10 Hypertension type: unspecified Hyperlipidemia, unspecified hyperlipidemia type E78.5 Hyperlipidemia type: unspecified Type 2 diabetes mellitus with unspecified complications E11.8 Generalized anxiety disorder F41.1 Chronic pain syndrome G89.4 Nicotine dependence, cigarettes, uncomplicated F17.210 Other polyneuropathy G62.89 Peripheral neuropathy type: polyneuropathy, other Additional Codes Vital Signs *Quality* - CPT code: 04188 - 4-10 Minutes ([id number]) Assessment & Plan Assessment & Plan (1) BPH (benign prostatic hyperplasia): Comment: - The patient's symptoms are likely secondary to benign prostatic hyperplasia (BPH) given his age. - The role of medications like duloxetine or oxycodone as a cause is less likely but considered. - A prescription for tamsulosin to be taken nightly will be sent to the pharmacy to help with symptoms. - The patient was advised to go to the emergency room if he becomes unable to urinate at all. Code(s): N40.0 - Benign prostatic hyperplasia without lower urinary tract symptoms Category: Medical Qualifiers: Lower urinary tract symptom presence: symptoms present Lower urinary tract symptom detail: urinary frequency Qualified Code(s): N40.1 - Benign prostatic hyperplasia with lower urinary tract symptoms; R35.0 - Frequency of micturition (2) HTN (hypertension): Comment: - Continue current dose of lisinopril 20 mg. Code(s): I10 - Essential (primary) hypertension Category: Medical Qualifiers: Hypertension type: unspecified Qualified Code(s): I10 - Essential (primary) hypertension (3) Hyperlipidemia, unspecified: Comment: - Continue current dose of atorvastatin 40 mg. Code(s): E78.5 - Hyperlipidemia, unspecified Category: Medical Qualifiers: Hyperlipidemia type: unspecified Qualified Code(s): E78.5 - Hyperlipidemia, unspecified (4) Type 2 diabetes mellitus with unspecified complications: Comment: - The patient's diabetes is severely uncontrolled, with an HbA1c of 10. - He was strongly encouraged to resume regular blood glucose monitoring and to keep a detailed log for his upcoming endocrinology appointment on March 21. - His peripheral neuropathy in his feet and fingers is attributed to poor glycemic control. - A prescription for pregabalin, taken morning and evening, will be sent to help with neuropathic pain, as gabapentin was previously ineffective. - A refill for insulin pen needles was also sent. Code(s): E11.8 - Type 2 diabetes mellitus with unspecified complications Category: Medical (5) Generalized anxiety disorder: Comment: - Continue current dose of duloxetine. Code(s): F41.1 - Generalized anxiety disorder Category: Medical (6) Chronic pain syndrome: Comment: - The patient is currently taking oxycodone 5 mg. TID - The plan is to taper the dose down to twice daily. - He has a pending appointment with a pain clinic. - It was explained that opioids are not effective for his neuropathic pain, for which pregabalin is being initiated. Code(s): G89.4 - Chronic pain syndrome Category: Medical (7) Nicotine dependence, cigarettes, uncomplicated: Comment: (onset 15yo, 1ppd x 42yrs, now 3/4ppd, 40pyh) - Order Nicotine Pathces & Lung Cancer Screening Code(s): F17.210 - Nicotine dependence, cigarettes, uncomplicated Category: Medical (8) Peripheral neuropathy: Comment: - Likely secondary to poor controlled diabetes - Started on lyrica 50mg BID (Previously failed gabapentin) Code(s): G62.9 - Polyneuropathy, unspecified Category: Medical Qualifiers: Peripheral neuropathy type: polyneuropathy, other Qualified Code(s): G62.89 - Other specified polyneuropathies Plan: Health Maintenance: - Lung cancer screening: Patient needs to follow up with the lung doctors for screening. - Smoking cessation: Discussed the patient's plan to start nicotine patches and encouraged quitting. - Diabetes care: The patient is scheduled to see an clinical documentation consultant on March 21 and is awaiting new diabetic shoes. - Pain management: The patient is scheduled to see a pain clinic. Patient was informed and verbally consented to the use of an ambient scribe for clinic note documentation during this visit. Plan I explained to the patient that his difficulty urinating is likely due to an enlarged prostate and that the tamsulosin I prescribed will help with this. I provided return precautions, advising him to go to the emergency room if he becomes completely unable to urinate. We discussed the dangerously high HbA1c of 10 and the urgent need for better glycemic control, highlighting that his peripheral neuropathy is a direct consequence of his poorly controlled diabetes. I informed him that I am prescribing pregabalin specifically for his nerve pain, as it is a better option than the oxycodone he is currently taking, which is not effective for this type of pain. We reviewed the plan to taper his oxycodone dose. I addressed his ongoing tobacco use and supported his plan to begin nicotine patches for cessation. We confirmed his upcoming specialist appointments and I scheduled a follow-up with me in two months. Medications: New tamsulosin 0.4 mg PO BEDTIME 90 caps 1RF E78.5 - Hyperlipidemia, unspecified pen needle, diabetic As directed 1,200 ea 0RF E78.5 - Hyperlipidemia, unspecified pregabalin 50 mg PO BID 120 caps 0RF 60 days E78.5 - Hyperlipidemia, unspecified oxycodone Partial Fill upon patient request. 5 mg PO BID 120 tabs 0RF pain 60 days E78.5 - Hyperlipidemia, unspecified Refilled pen needle, diabetic (Ultra-Fine Pen Needle) USE FOUR TIMES DAILY 1,200 ea 2RF E78.5 - Hyperlipidemia, unspecified Discontinued oxycodone Partial Fill upon patient request. Discontinued Reason: Doctor's Order 5 mg PO TID 4 weeks 84 tabs 0RF pain Patient Instructions: - Take the new medication, tamsulosin, every night to help you urinate more easily. - If you become unable to urinate at all, go to the nearest emergency room immediately. - Begin taking pregabalin in the morning and evening to help with the nerve pain in your feet and hands. - Reduce your oxycodone to one pill twice a day, once in the morning and once in the evening. - It is very important to start checking your blood sugars again. Please write down your sugar levels when you wake up and with each meal to show the diabetes doctor. - Continue taking all your other medications for diabetes, high blood pressure, and cholesterol as prescribed. - Keep your appointments with the diabetes doctor on March 21 and the pain clinic. - Follow up for lung cancer screening. - Follow up in this clinic in two months.
--- OUTSIDE RECORDS SUMMARY | 2025-02-07 09:31 | XMS_ITS | Clinical Summary ---
Author Organization [employer] Address [address] [place] [address] Care Team Providers Care Jet Aircraft Servicer Name Role Phone Unavailable Primary Care Provider [...]
--- OUTSIDE RECORDS SUMMARY | 2025-02-07 09:31 | XMS_ITS | Encounter Summary ---
Author Organization [employer] Address [address] [facility] [address] [place] [address] Care Team Providers Care Straddle Bug Operator Name Role Phone Unavailable Primary Care Provider Unavailabl e Encounter Details Date Type Department Care Team (Late st Contact Info) Description 06/13/2022 Abstract [facility] [address] [place] [address], [place] [phone] George Noel DDS [address] [place] [address], [place] [phone] Social History Tobacco Use Types Packs/Day Years [...]
--- OUTSIDE RECORDS SUMMARY | 2025-02-07 09:31 | XMS_ITS | Patient Health Record ---
Author Organization [facility] Address [address] [place] [address] Care Team Providers Care Grain Origination Specialist Name Role Phone Tushar Fang Primary Care Provider Gorge Nath Unavailable [phone] Allergies No Known Allergies Results Component Value [...] Problem Acquired hammer toe of right foot (1926894567788920 ) Other hammer toe(s) (acquired), right foot (M20.41) Active confirmed Response to treatment, Improvemen t Problem Acquired hammer toe of left foot (6587050308096131 ) Other hammer toe(s) (acquired), left foot (M20.42) Active confirmed Response to treatment, Improvemen t Problem Polyneuropathy due to type 2 diabetes mellitus (931091974) Type 2 diabetes mellitus with diabetic polyneuropathy (E11.42) Active confirmed Vital Signs Blood pressure diastolic 70 mm Hg 12/10/2024 Height 5ft5in in 12/10/2024 Blood pressure systolic 129 mm Hg 12/10/2024 Weight 225 lbs 12/10/2024 BMI 37.44 kg/m2 12/10/2024 Procedures Procedure Date Ordered Date Performed Result Body Sit e 26990-ENQWXHW NAIL, 1-5 03/02/2024 N/A 97596-Wbdclmoh Plate 03/02/2024 N/A 08570-WUKU SKIN LESIONS, 2 TO 4 03/02/2024 N/A A8109-TKRBSELE DYSTROPHIC NAILS ANY # 03/02/2024 N/A 16655-EHZDQWI NAIL, 1-5 06/01/2024 N/A 95343-Flxmhdzn Plate 06/01/2024 N/A 35125-ZBUF SKIN LESIONS, 2 TO 4 06/01/2024 N/A M2397-HGYEAXCZ DYSTROPHIC NAILS ANY # 06/01/2024 N/A 42591-BCNIBPI NAIL, 1-5 09/07/2024 N/A 03519-Mtlxgcxi Plate 09/07/2024 N/A 06942-EGIX SKIN LESIONS, 2 TO 4 09/07/2024 N/A V5408-KMIVINFF DYSTROPHIC NAILS ANY # 09/07/2024 N/A 17052-XIAXXPJ NAIL, 1-5 12/10/2024 N/A 35786-ABWR SKIN LESIONS, 2 TO 4 12/10/2024 N/A S3673-XHTAMFMO DYSTROPHIC NAILS ANY # 12/10/2024 N/A Encounters Encounter Location Date Provider Diagnosis [address] [address] 03/02/2024 Gorge Nath Type 2 diabetes mellitus with diabetic polyneuropathy E11.42 ; Tinea unguium B35.1 ; Ingrown nail L60.0 ; Pain in left foot M79.672 ; Plantar fasciitis of left foot M72.2 ; Calcaneal spur, left foot M77.32 ; Interstitial myositis of left foot M60.172 and Bursitis of left foot M77.[address] [address] 06/01/2024 Gorge Nath Type 2 diabetes mellitus with diabetic polyneuropathy E11.42 ; Tinea unguium B35.1 ; Plantar fasciitis of left foot M72.2 and Ingrown nail L60.[address] [address] 09/07/2024 Gorge Pham Type 2 diabetes mellitus with diabetic polyneuropathy E11.42 ; Tinea unguium B35.1 ; Ingrown nail L60.0 ; Other hammer toe(s) (acquired), right foot M20.41 and Other hammer toe(s) (acquired), left foot M20.[address] [address] 12/10/2024 Gorgejaki Nath Type 2 diabetes mellitus with diabetic polyneuropathy E11.42 and Tinea unguium B35.1 [facility] [address] [address] 2024 Gorge Nath [facility] [address] [address] 09/16/2024 Gorge Pham Assessments Encounter Date Diagnosis [...] X ray : Foot, left 3V 03/02/2024 01223-HMNDJHA NAIL, 1-5 06/01/2024 93881-VZDWMPN NAIL, 1-5 03/02/2024 17339-SROELSC NAIL, 1-5 09/07/2024 42320-HTDYZQO NAIL, -5 12/10/2024 51689-VDIQZGP NAIL, -05/09/2023 92093-PLNAMFR NAIL, -07/18/2023 36188-NAMDZKD NAIL, -09/30/2023 19009-KYGNZML NAIL, -12/09/2023 84603-Ersjljcf Plate 12/09/2023 29279-Dmwghjoz Plate 07/18/2023 38802-Qagwkisg Plate 05/09/2023 78248-Fkfwytck Plate 06/01/2024 58935-Jpymjxnl Plate 09/07/2024 08776-Uymhcazj Plate 03/02/2024 07133-Wszimlkc Plate Each Additional 08/2023 25826 I&D ABSCESS- SIMPLE,SINGLE 024 63406-QENY SKIN LESIONS, 2 TO 4 09/30/19 24 37623-INPX SKIN LESIONS, 2 TO 4 12/09/19 24 79823-XKSQ SKIN LESIONS, 2 TO 4 07/18/19 24 00139-LQSU SKIN LESIONS, 2 TO 4 05/09/19 24 41659-WRRT SKIN LESIONS, 2 TO 4 03/02/20 24 59059-JZBN SKIN LESIONS, 2 TO 4 06/01/19 25 54518-XIGC SKIN LESIONS, 2 TO 4 09/08/19 25 19542-TNBL SKIN LESIONS, 2 TO 4 12/11/19 25 U9033-BLYEHFFY DYSTROPHIC NAILS ANY # O6803-JKKUBKJC DYSTROPHIC NAILS ANY # T8206-NZLHNYTN DYSTROPHIC NAILS ANY # Z6744-UAKOLBDN DYSTROPHIC NAILS ANY # M0574-NLWUHHAI DYSTROPHIC NAILS ANY # Y3752-FTLGULLN DYSTROPHIC NAILS ANY # D5273-NNBFNQSJ DYSTROPHIC NAILS ANY # J4172-ITHSEFDY DYSTROPHIC NAILS ANY # Next Appt Details Provider Name:Gorge Nath , 03/29/2025 08:45:00 AM, [address] [place], [address], Insurance Providers Payer Name Payer Address Payer Phone Subscriber Number Group Number Insured Name Patient Relationship to Insured Coverage Start Date Coverage End Date [employer] Claims [address] [address] [place] [phone] [id number] Moo Dempsey Self - patient is the insured Medical (General) History Medical History History ICD Code Anxiety Arthritis Back,Hip,and Knee pain CAD (Cholesterol) covid-19 Diabetic Numbness Reflux ( GERD) Joint implants/screws Surgical History Surgery Date(Month/Year) knee surgery 2017 back surgery [address] [facility] 1995
--- OUTSIDE RECORDS SUMMARY | 2025-02-07 09:31 | XMS_ITS | Encounter Summary ---
Author Organization [employer] Address [address] [place] [address] Care Team Providers Care Machine Trimmer Name Role Phone Unavailable Primary Care Provider Unavailabl e Encounter Details Date Type Department Care Team (Late st Contact Info) Description 10/07/2022 Abstract [facility] [address] [place], [place] [phone] George Noel DDS [address] [place], [place] [phone] Social History Tobacco Use Types Packs/Day Years [...]
--- OUTSIDE RECORDS SUMMARY | 2025-02-07 09:31 | XMS_ITS | Encounter Summary ---
Author Organization [employer] Address [address] [facility] [address] [place] [address] Care Team Providers Care Worm Sorter Name Role Phone Unavailable Primary Care Provider Unavailabl e Reason for Visit * Reason Onset Date Comments rs no show appt 04/22/2024 Encounter Details Date Type Department Care Team (Late st Contact Info) Description 04/22/2024 Telephone [facility] [address], [place] [phone] George Noel DDS [address], [place] [phone] rs no show appt Social History Tobacco [...]
== END 2025-02-07 09:20 | disposition home or self-care (01) ==
LOC: HO.HMCHD 08:54
PROVIDERS: PCP Student in an Organized Health Care Education/Training Program; Visit Provider Student in an Organized Health Care Education/Training Program
DX: N40.1 Benign prostatic hyperplasia with lower urinary tract symptoms (principal); R35.0 Frequency of micturition; I10 Essential (primary) hypertension; E78.5 Hyperlipidemia, unspecified; E11.8 Type 2 diabetes mellitus with unspecified complications; F41.1 Generalized anxiety disorder; G89.4 Chronic pain syndrome; F17.210 Nicotine dependence, cigarettes, uncomplicated; G62.89 Other specified polyneuropathies

== ENCOUNTER 2025-02-10 10:38 | Outpatient (AMB) | payer OTHER, MEDICAID, SELFPAY ==
--- NOTE | 2025-02-10 11:00 | MHC.OFFVISPS ---
Intake Intake Visit Reasons: f/u consultation Intake Note: PHQ-9 0 LINCOLN-7 4 Bilingual Administrative Assistant Required: No Allergies No Known Allergies (No Known Allergies*) Allergy (Verified 02/07/25 08:46) Medication List - Last Reconciled 02/10/25 by Glendy Sinclair APRN Accu-Chek Guide test strips (blood sugar diagnostic) once daily NS atorvastatin (Lipitor) 40 mg PO BEDTIME blood-glucose meter (Accu-Chek Guide Me Glucose Meter) As directed cyclobenzaprine 10 mg PO BEDTIME dapagliflozin propanediol (Farxiga) 5 mg PO DAILY duloxetine 40 mg (2 x 20 mg) PO DAILY glipizide 10 mg PO BID insulin glargine (Lantus Solostar U-100 Insulin) 90 units (0.9 mL) subcut DAILY insulin lispro (Humalog KwikPen (U-100) Insulin) 10 units (0.1 mL) subcut TID 90 days lancets (Accu-Chek Softclix Lancets) As directed lisinopril mg PO DAILY metformin 500 mg PO BID nicotine 1 patch transdermal DAILY omeprazole 20 mg PO DAILY oxycodone 5 mg PO BID 60 days pen needle, diabetic (Ultra-Fine Pen Needle) USE FOUR TIMES DAILY pen needle, diabetic As directed pregabalin 50 mg PO BID 60 days tamsulosin 0.4 mg PO BEDTIME HPI- Psychiatric Chief Complaint: f/u consultation HPI Narrative: Moo reports feeling improved overall. Knee and shoulder pain persist however with some relief. Tolerating Cymbalta 40 mg-believes it is helpful for pain and for depressive /anxious sx. Reports going to sleep @630-7pm and awake at 2-3am- yesterday sleeping until 5am. Pt has seen urology and is being treated for BPH-pt did mention possible Cymbalta SE to urologist, however he reports he was told this is not likely. Tamsulosin was initiated with reported relief. Also reports a change from Gabapentin to Lyrica which he finds is also an improvement. Currently going to begin to quit smoking with the patch, replace his glasses, has been fitted for diabetic shoes and believes he is taking steps to improve his health in every way. Pt did discuss some anticipatory anxiety- I had a feeling one day that something will happen to me and I started to think I might alone . I had never thought about this before and I decided I need to make sure I am caring for myself. Past Psychiatric History: IP: Denies OP: Denies Trials: Klonopin Denies suicide attempts or ideation Denies hx of lis, AH,VH or sx of psychosis currently and by history Subjective Subjective Subjective Medication Compliance: Yes Side effects from medications: No Review of Systems Medical Review of Systems: changed (as noted) Review of Systems Review of Systems chronic pain Mental Status Exam Mental Status Exam Patient Appearance: Appropriate Patient Orientation: Person, Place, Time and Situation Level of Consciousness: Alert Patient Behavior: Appropriate, Talkative, Cooperative and Good Eye Contact Mood Description: Appropriate Affect Description: Appropriate Patient Cognition Impaired: No Ability to Follow Directions: Good Speech Pattern: Spontaneous Speech Memory Description: Intact Hallucinations: None Delusions: Not Present Thought Process: Intact and Goal Oriented Thought Content: positive for Intact, positive for Goal Oriented and positive for Suicidal Ideation (denies) Depressive Symptoms: Thoughts of /Suicide (denies) Judgement: Good Assessment and Plan Assessment & Plan (1) PTSD (post-traumatic stress disorder): Status: Acute Code(s): F43.10 - Post-traumatic stress disorder, unspecified (2) Generalized anxiety disorder: Status: Acute Code(s): F41.1 - Generalized anxiety disorder Plan Pt reports feeling improved. He will continue duloxetine and will return to primary care group for ongoing follow up. Medications: Refilled duloxetine 40 mg (2 x 20 mg) PO DAILY 60 caps 1RF Counseling and coordination of Care Medication management counseling: Effectiveness, Side effects, Dosing range, Duration, Drug interaction and Adherence Details: I spent [] minutes reviewing the record, seeing the patient and documenting in the medical record. Counseling provided to the patient/caregiver as outlined below. Addressed patient/caregiver concerns regarding current medication regime including effective adherence. Addressed patient/caregiver concerns regarding diagnosis and prognosis including accuracy of diagnosis, prognosis over time, impact of diagnosis. Addressed patient/caregiver concerns regarding impact of recent stressors. [facility] Medical History (Updated 02/07/25 @ 09:25 by Quentin Weinberg MD) Peripheral neuropathy BPH (benign prostatic hyperplasia) PTSD (post-traumatic stress disorder) Generalized anxiety disorder Chronic pain syndrome Hyperlipidemia, unspecified Cervical myofascial pain syndrome Polyarthritis Frequent headaches HTN (hypertension) Diabetes mellitus, insulin dependent (IDDM), controlled Nicotine dependence, cigarettes, uncomplicated Surgical History History of partial knee replacement History of lumbar fusion History of left knee surgery History of back surgery Family History Sister Heart attack Pacemaker Father Cancer Social History Housing: House Alcohol intake: current Alcohol intake frequency: holidays/special occasions only Patient Tobacco Use Status: Current everyday Tobacco user Tobacco use type: Cigarette Cigarettes Per Day: 15 Years Smoked: 44 e-Cigarette/Vaping Use: Currently Using service: No Current occupational status: retired Cognitive needs: No Hearing needs: No Vision needs: Yes (reading glasses) Social History: One of nine children, 4 girls, 5 boys, pt is the youngest boy. One brother of hepatic disease. Raised by mother, stepfather. Parents have . Pt was in SPED throughout school, it was not good . I never went to school . 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 Two are struggling, two are doing well Eleven grandchildren plus girlfriends grandchildren as well. Family history of anxiety-mother Enjoys fishing Substance History: Alcohol- currently sober, history of excessive intake Substances-denies Caffeine- 1-3 daily Nicotine- ~1 carton or less per month Trauma History: Affirms Coding Level of Care Code Est Pt Level 3 (48212) Diagnoses PTSD (post-traumatic stress disorder) F43.10 Generalized anxiety disorder F41.1
--- OUTSIDE RECORDS SUMMARY | 2025-02-10 13:07 | XMS_ITS | Patient Health Record ---
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 Name Role Phone Tushar Fang Primary Care Provider Gorge Nath Unavailable [phone] Allergies No Known Allergies Results Component Value [...] Problem Acquired hammer toe of right foot (4899005234096329 ) Other hammer toe(s) (acquired), right foot (M20.41) Active confirmed Response to treatment, Improvemen t Problem Acquired hammer toe of left foot (4669621748559687 ) Other hammer toe(s) (acquired), left foot (M20.42) Active confirmed Response to treatment, Improvemen t Problem Polyneuropathy due to type 2 diabetes mellitus (593994234) Type 2 diabetes mellitus with diabetic polyneuropathy (E11.42) Active confirmed Vital Signs Blood pressure diastolic 70 mm Hg 12/10/2024 Height 5ft5in in 12/10/2024 Blood pressure systolic 129 mm Hg 12/10/2024 Weight 225 lbs 12/10/2024 BMI 37.44 kg/m2 12/10/2024 Procedures Procedure Date Ordered Date Performed Result Body Sit e 56275-DODDJFD NAIL, 1-5 03/02/2024 N/A 17343-Qojttfgy Plate 03/02/2024 N/A 62790-AGHQ SKIN LESIONS, 2 TO 4 03/02/2024 N/A U4555-RFYQXLHY DYSTROPHIC NAILS ANY # 03/02/2024 N/A 64943-CGSAXXC NAIL, 1-5 06/01/2024 N/A 55942-Mdnyhira Plate 06/01/2024 N/A 46607-RQYX SKIN LESIONS, 2 TO 4 06/01/2024 N/A P8019-KNEYQMGP DYSTROPHIC NAILS ANY # 06/01/2024 N/A 20555-JGFSJJD NAIL, 1-5 09/07/2024 N/A 08558-Uvcgglhq Plate 09/07/2024 N/A 99091-IKAX SKIN LESIONS, 2 TO 4 09/07/2024 N/A S8463-ERHQCOME DYSTROPHIC NAILS ANY # 09/07/2024 N/A 41031-PCTTNUN NAIL, 1-5 12/10/2024 N/A 32352-FMNJ SKIN LESIONS, 2 TO 4 12/10/2024 N/A Q7860-ARUMSUHP DYSTROPHIC NAILS ANY # 12/10/2024 N/A Encounters Encounter Location Date Provider Diagnosis [address] [address] 03/02/2024 Gorge Nath Type 2 diabetes mellitus with diabetic polyneuropathy E11.42 ; Tinea unguium B35.1 ; Ingrown nail L60.0 ; Pain in left foot M79.672 ; Plantar fasciitis of left foot M72.2 ; Calcaneal spur, left foot M77.32 ; Interstitial myositis of left foot M60.172 and Bursitis of left foot M77.[address] [address] 06/01/2024 Gorge Nath Type 2 diabetes mellitus with diabetic polyneuropathy E11.42 ; Tinea unguium B35.1 ; Plantar fasciitis of left foot M72.2 and Ingrown nail L60.[address] [address] 09/07/2024 Gorge Pham Type 2 diabetes mellitus with diabetic polyneuropathy E11.42 ; Tinea unguium B35.1 ; Ingrown nail L60.0 ; Other hammer toe(s) (acquired), right foot M20.41 and Other hammer toe(s) (acquired), left foot M20.[address] [address] 12/10/2024 Gorgejaki Nath Type 2 diabetes mellitus with diabetic polyneuropathy E11.42 and Tinea unguium B35.1 [facility] [address] [address] 2024 Gorge Nath [facility] [address] [address] 09/16/2024 Gorge Pham Assessments Encounter Date Diagnosis [...] X ray : Foot, left 3V 03/02/2024 07314-YLKNASX NAIL, 1-5 06/01/2024 28157-UEWSMLB NAIL, 1-5 03/02/2024 49143-PQTWUUI NAIL, 1-5 09/07/2024 05584-OZKCTRO NAIL, -5 12/10/2024 30471-WKTSFMQ NAIL, -05/09/2023 66783-VTYVYQN NAIL, -07/18/2023 37005-DUOZHRW NAIL, -09/30/2023 72845-XEJTVHV NAIL, -12/09/2023 15769-Ssaputso Plate 12/09/2023 46270-Bnqfjxpz Plate 07/18/2023 91045-Wwdzrurb Plate 05/09/2023 85647-Alunegei Plate 06/01/2024 55705-Qdncxfix Plate 09/07/2024 57482-Lhkmwgsy Plate 03/02/2024 69086-Tidsxnnf Plate Each Additional 08/2023 04733 I&D ABSCESS- SIMPLE,SINGLE 024 40702-HGGY SKIN LESIONS, 2 TO 4 09/30/19 24 33351-JDVN SKIN LESIONS, 2 TO 4 12/09/19 24 44481-BVQH SKIN LESIONS, 2 TO 4 07/18/19 24 18683-UNPG SKIN LESIONS, 2 TO 4 05/09/19 24 38738-EKNQ SKIN LESIONS, 2 TO 4 03/02/20 24 93892-NAMQ SKIN LESIONS, 2 TO 4 06/01/19 25 81927-UNNZ SKIN LESIONS, 2 TO 4 09/08/19 25 60458-SCUO SKIN LESIONS, 2 TO 4 12/11/19 25 N7039-BUVIAQOJ DYSTROPHIC NAILS ANY # G9350-XIAYYKIZ DYSTROPHIC NAILS ANY # G1842-HICSOHZB DYSTROPHIC NAILS ANY # G5276-GLQHFLQX DYSTROPHIC NAILS ANY # D5347-FREZEIWW DYSTROPHIC NAILS ANY # U6355-YKDBFUVK DYSTROPHIC NAILS ANY # R5027-EGOCHFDI DYSTROPHIC NAILS ANY # D0471-SSGIKGDW DYSTROPHIC NAILS ANY # Next Appt Details Provider Name:Gorge Nath , 03/29/2025 08:45:00 AM, [address] [place], [address], Insurance Providers Payer Name Payer Address Payer Phone Subscriber Number Group Number Insured Name Patient Relationship to Insured Coverage Start Date Coverage End Date [employer] Claims [address] [address] [place] [id number] Moo Dempsey Self - patient is the insured Medical (General) History Medical History History ICD Code Anxiety Arthritis Back,Hip,and Knee pain CAD (Cholesterol) covid-19 Diabetic Numbness Reflux ( GERD) Joint implants/screws Surgical History Surgery Date(Month/Year) knee surgery 2017 back surgery 1994 cyst removal from [facility] 1995
--- OUTSIDE RECORDS SUMMARY | 2025-02-10 13:07 | XMS_ITS | Encounter Summary ---
Author Organization [employer] Address [address] [facility] [address] [place] [address] Care Team Providers Care Farmworker Rice Name Role Phone Unavailable Primary Care Provider Unavailabl e Encounter Details Date Type Department Care Team (Late st Contact Info) Description 06/13/2022 Abstract [facility]ULT [facility] [address] [place], [place] [phone] George Noel DDS [address] [place], [place] [phone] Social History Tobacco Use Types Packs/Day Years [...]
--- OUTSIDE RECORDS SUMMARY | 2025-02-10 13:07 | XMS_ITS | Clinical Summary ---
Author Organization [employer] Address [address] [facility] 7[address] [place] [address] Care Team Providers Care Director Of Sports Performance Name Role Phone Unavailable Primary Care Provider [...] Most Recently Relevant to Health Maintenance Insurance DENTAL-[facility] MEDICAID STAND ADULT
--- OUTSIDE RECORDS SUMMARY | 2025-02-10 13:07 | XMS_ITS | Encounter Summary ---
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 ADULT DENTAL [address] [place], [place] [phone] George Noel DDS [address] [place], [place] [phone] rs no show appt Social History Tobacco [...]
--- OUTSIDE RECORDS SUMMARY | 2025-02-10 13:07 | XMS_ITS | Encounter Summary ---
Author Organization [employer] Address [address] [facility] [address] [place] [address] Care Team Providers Care Guest Services Coordinator Name Role Phone Unavailable Primary Care Provider Unavailabl e Encounter Details Date Type Department Care Team (Late st Contact Info) Description 10/07/2022 Abstract [facility] ADULT DENTAL [address] [place], [place] [phone] George Noel DDS [address] [place], [place] [phone] Social History Tobacco Use Types Packs/Day Years [...]
== END 2025-02-10 11:36 | disposition home or self-care (01) ==
LOC: HO.HOP 10:38
PROVIDERS: PCP Student in an Organized Health Care Education/Training Program; Visit Provider Clinical Nurse Specialist Psychiatric/Mental Health, Adult
DX: F43.10 Post-traumatic stress disorder, unspecified (principal); F41.1 Generalized anxiety disorder
CPT/HCPCS: 99213

== ENCOUNTER 2025-03-28 09:14 | Outpatient (AMB) | payer OTHER, MEDICAID, SELFPAY ==
--- NOTE | 2025-03-28 09:16 | MHC.PC.OV ---
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 Accompanied by: Self / Same As Patient Allergies No Known Allergies (No Known Allergies*) Allergy (Verified 03/28/25 09:16) Medication List - Last Reconciled 03/28/25 by Quentin Weinberg MD Accu-Chek Guide test strips (blood sugar diagnostic) once daily NS atorvastatin (Lipitor) 40 mg PO BEDTIME blood-glucose meter (Accu-Chek Guide Me Glucose Meter) As directed cyclobenzaprine 10 mg PO BEDTIME dapagliflozin propanediol (Farxiga) 5 mg PO DAILY duloxetine 40 mg (2 x 20 mg) PO DAILY glipizide 10 mg PO BID 90 days insulin glargine (Lantus Solostar U-100 Insulin) 90 units (0.9 mL) subcut DAILY insulin lispro (Humalog KwikPen (U-100) Insulin) 10 units (0.1 mL) subcut TID 90 days lancets (Accu-Chek Softclix Lancets) As directed lisinopril 20 mg PO DAILY metformin 500 mg PO BID nicotine 1 patch transdermal DAILY omeprazole 20 mg PO DAILY oxycodone 5 mg PO BID 60 days pen needle, diabetic (Ultra-Fine Pen Needle) USE FOUR TIMES DAILY pen needle, diabetic As directed pregabalin 50 mg PO BID 60 days tamsulosin 0.4 mg PO BEDTIME Tobacco use date assessed: 09/13/24 Fall risk assessment: No Falls in past year Last assessed Fall Risk: 03/28/25 Dental Screening Dental Screen Date: 09/13/24 HPI HPI Comments History of Present Illness Details History of Present Illness The patient is a 64 year old male presenting for follow-up for chronic condition management and medication review. He had to reschedule a recent appointment because he was sick with chest and head congestion and a severe sinus headache. The patient has a history of poorly controlled type 2 diabetes mellitus, with his last HbA1c in September being 10.1%. He has not been monitoring his blood glucose levels at home recently, as he cannot find his supplies after moving. He reports difficulty with finger pricks and tracking results, stating he dropped out of school and is not good at keeping up with such things. He expresses interest in a continuous glucose monitor like Dexcom. For neuropathy, the patient reports that pregabalin has helped reduce the burning sensation in his feet. For benign prostatic hyperplasia, he reports that tamsulosin has improved his urinary stream. The patient is a current smoker and expresses a desire to quit, planning to use a smoking cessation patch as a New Year's resolution. He is also interested in weight loss, particularly around his abdomen. His diet mainly consists of a yogurt and banana in the morning, a small sandwich at lunch, and a main meal at supper time. The patient requested an influenza vaccine, which he usually receives in December. Medical History: - Type 2 diabetes mellitus, poorly controlled - Hypercholesterolemia - Hypertension - Neuropathy with burning in feet - Muscle spasms - Gastroesophageal reflux disease (GERD) - Benign prostatic hyperplasia - Recent illness with chest congestion and sinus headache Medications: - Atorvastatin 40 mg for hypercholesterolemia - Cyclobenzaprine for muscle spasms - Farxiga 5 mg for diabetes - Duloxetine 40 mg for pain - Glipizide 10 mg twice a day for diabetes - Glargine insulin 90 units at night - Lispro insulin 10 units three times a day - Lisinopril 20 mg for hypertension - Metformin 500 mg twice a day for diabetes - Omeprazole 20 mg for GERD - Pregabalin 50 mg for neuropathy - Tamsulosin 0.4 mg for prostate Diagnostic Results: - Labs: Last HbA1c was 10.1% in September. Social History - Substance Use: The patient is a current smoker and plans to use a patch to quit. - Education: He reports he dropped out of school and has difficulty keeping track of things like blood sugar logs. - Nutrition: He reports eating yogurt and a banana for breakfast, sometimes a sandwich for lunch, and a main meal at supper. - Housing: He recently moved and has been unable to locate his blood sugar monitoring supplies. [facility] Medical History (Updated 03/28/25 @ 09:48 by Quentin Weinberg MD) Peripheral neuropathy BPH (benign prostatic hyperplasia) PTSD (post-traumatic stress disorder) Generalized anxiety disorder Chronic pain syndrome Hyperlipidemia, unspecified Cervical myofascial pain syndrome Polyarthritis Frequent headaches HTN (hypertension) Diabetes mellitus, insulin dependent (IDDM), controlled Nicotine dependence, cigarettes, uncomplicated Surgical History History of partial knee replacement History of lumbar fusion History of left knee surgery History of back surgery Family History Sister Heart attack Pacemaker Father Cancer Social History Housing: House Alcohol intake: current Alcohol intake frequency: holidays/special occasions only Patient Tobacco Use Status: Current everyday Tobacco user Tobacco use type: Cigarette Cigarettes Per Day: 15 Years Smoked: 44 e-Cigarette/Vaping Use: Currently Using service: No Current occupational status: retired Cognitive needs: No Hearing needs: No Vision needs: Yes (reading glasses) Questionnaire Thrive Questionnaire Date Thrive assessed: 09/13/24 LINCOLN-7 AMB Questionnaire LINCOLN-7 Date LINCOLN - 7 assessed: 09/13/24 Source: Developed by Drs. Lc Rose, Keisha Hall, Freeman Lyons and colleagues, with an educational leigha from [employer]. Review of Systems Narrative Review of Systems - Neurological: Reports decreased burning pain in his feet with pregabalin. Denies current headache, but notes a recent severe sinus headache. - Respiratory: Denies current symptoms but reports recent chest congestion. - Genitourinary: Reports improved urinary stream on tamsulosin. - Constitutional: Reports feeling better after a recent illness. Expresses desire for weight loss. - Musculoskeletal: No active complaints, but takes cyclobenzaprine for muscle spasms. - Gastrointestinal: Takes omeprazole for GERD. Reports wanting to lose weight from his abdomen. All systems reviewed & are unremarkable except as reviewed in HPI and above Physical exam (Primary Care) Vital Signs: Last Vital Signs Temp 97.8 F 03/28/25 09:22 Pulse 111 H 03/28/25 09:22 Resp 20 03/28/25 09:22 BP 152/68 H 03/28/25 09:22 Pulse Ox 96 03/28/25 09:22 Oxygen Delivery Method Room Air 03/28/25 09:22 BMI result Body Mass Index 37.4 Tobacco/Smoking Status: Tobacco use Status Tobacco use date assessed 09/13/24 03/28/25 09:24 Patient Tobacco Use Status Current everyday Tobacco 03/28/25 09:24 Tobacco use type Cigarette 03/28/25 09:24 e-Cigarette/Vaping Use Currently Using 03/28/25 09:24 Thrive Assessment: Date of Thrive Assessment Date Thrive assessed 09/13/24 03/28/25 09:24 Narrative Physical Exam General: Alert and oriented, Well nourished, No acute distress. Eye: Pupils are equal, round and reactive to light, Intact accommodation, Extraocular movements are intact, Normal conjunctiva, Vision unchanged. HENT: Normocephalic, Atraumatic, Tympanic membranes are clear, Normal hearing, Oral mucosa is moist, No pharyngeal erythema, Ear canals patent. Respiratory: Lungs CTA bilaterally, No wheeze, Respirations are non-labored. Cardiovascular: Regular rate, Regular rhythm, S1 auscultated, S2 auscultated, No murmur, Good pulses equal in all extremities, Normal peripheral perfusion, No edema. Gastrointestinal: Soft, Non-tender, Non-distended, Normal bowel sounds, No organomegaly. Musculoskeletal: Normal range of motion, Normal strength, No tenderness, No swelling, No deformity, Normal gait. Integumentary: Warm, Dry, Dent, Intact. Neurologic: Alert, Oriented, Normal sensory, Normal motor function, No focal defects, Cranial Nerves II-XII are grossly intact, Normal deep tendon reflexes. Psychiatric: Cooperative, Appropriate mood & affect, Normal judgment. Coding Level of Care Code Est Pt Level 4 (04557) Add On Problem Visit Only Diagnoses Type 2 diabetes mellitus with unspecified complications E11.8 Hyperlipidemia, unspecified hyperlipidemia type E78.5 Hyperlipidemia type: unspecified Hypertension, unspecified type I10 Hypertension type: unspecified Other polyneuropathy G62.89 Peripheral neuropathy type: polyneuropathy, other Generalized anxiety disorder F41.1 Benign prostatic hyperplasia with urinary frequency N40.1; R35.0 Lower urinary tract symptom presence: symptoms present Lower urinary tract symptom detail: urinary frequency Nicotine dependence, cigarettes, uncomplicated F17.210 Assessment & Plan Assessment & Plan (1) Type 2 diabetes mellitus with unspecified complications: Comment: - The patient's last HbA1c was 10.1% in September, and he has not been monitoring his blood sugars since moving. - He expresses difficulty with tracking, and a continuous glucose monitor (CGM) like Dexcom has been discussed. - A new once-weekly injection, Mounjaro (tirzepatide) 2.5 mg, will be prescribed to improve glycemic control and assist with weight loss. - An order for a new HbA1c to be drawn today has been placed. Code(s): E11.8 - Type 2 diabetes mellitus with unspecified complications Category: Medical (2) Hyperlipidemia, unspecified: Comment: - Continue atorvastatin 40 mg. A refill has been provided. Code(s): E78.5 - Hyperlipidemia, unspecified Category: Medical Qualifiers: Hyperlipidemia type: unspecified Qualified Code(s): E78.5 - Hyperlipidemia, unspecified (3) HTN (hypertension): Comment: - Continue lisinopril 20 mg. Code(s): I10 - Essential (primary) hypertension Category: Medical Qualifiers: Hypertension type: unspecified Qualified Code(s): I10 - Essential (primary) hypertension (4) Peripheral neuropathy: Comment: - The patient reports improvement in symptoms with pregabalin 50 mg. Continue current management. Code(s): G62.9 - Polyneuropathy, unspecified Category: Medical Qualifiers: Peripheral neuropathy type: polyneuropathy, other Qualified Code(s): G62.89 - Other specified polyneuropathies (5) Generalized anxiety disorder: Comment: - Continue current dose of duloxetine. Code(s): F41.1 - Generalized anxiety disorder Category: Medical (6) BPH (benign prostatic hyperplasia): Comment: - The patient reports improvement in urinary stream with tamsulosin 0.4 mg. Continue current management Code(s): N40.0 - Benign prostatic hyperplasia without lower urinary tract symptoms Category: Medical Qualifiers: Lower urinary tract symptom presence: symptoms present Lower urinary tract symptom detail: urinary frequency Qualified Code(s): N40.1 - Benign prostatic hyperplasia with lower urinary tract symptoms; R35.0 - Frequency of micturition (7) Nicotine dependence, cigarettes, uncomplicated: Comment: (onset 15yo, 1ppd x 42yrs, now 3/4ppd, 40pyh) - The patient expresses intent to quit and will use a smoking cessation patch, aiming to start in the new year. - Encouraged to start sooner. Code(s): F17.210 - Nicotine dependence, cigarettes, uncomplicated Category: Medical Plan: Health Maintenance: - Influenza vaccination: Administered during the visit. - Tobacco cessation: Discussed plan to quit smoking using a patch, with encouragement to start immediately. - Weight management: Discussed desire for weight loss. Prescribed Mounjaro, which can assist with this goal. - Diabetes screening: Ordered stat HbA1c to assess current glycemic control. Patient was informed and verbally consented to the use of an ambient scribe for clinic note documentation during this visit. Plan I reviewed the patient's current medications with him. We discussed the importance of monitoring his blood sugar, especially given his last HbA1c was 10.1% and he is not currently checking his levels. I explained his diabetes is poorly controlled. I have ordered a stat HbA1c for today. To improve his glycemic control and aid with his goal of weight loss, I have prescribed Mounjaro 2.5mg as a once-weekly injection. I informed him that insurance approval for this new medication can vary. We also discussed his interest in a continuous glucose monitor (CGM) like a Dexcom, which would be easier for him than manual checks, and I will look into prescribing this for him. I provided a refill for his atorvastatin. An influenza vaccine was administered in-office. We will follow up in two months to assess his response to the new medication and review his bloodwork. Orders: Orders Hemoglobin A1c Today E11.8 - Type 2 diabetes mellitus with unspecified complications Medications: New blood-glucose sensor (Dexcom G6 Sensor device) As directed 3 ea 11RF E11.8 - Type 2 diabetes mellitus with unspecified complications, E11.9 - Type 2 diabetes mellitus without complications, Z79.4 - senior care (current) use of insulin tirzepatide (Mounjaro) for 4 weeks 2.5 mg (0.5 mL) subcut QWEEK 2 mL 0RF E11.8 - Type 2 diabetes mellitus with unspecified complications Refilled atorvastatin (Lipitor) 40 mg PO BEDTIME 90 tabs 0RF Patient Instructions: - Please go to the lab [place] the [place] to have your blood drawn for an A1c test today. - A new medication called Mounjaro has been prescribed. This is a shot you will give yourself once a week to help with your diabetes and weight loss. It is important to know that your insurance may or may not approve this medication. - It is very important to start checking your blood sugar levels again. Please keep a record of your readings. - Continue taking all your other current medications as prescribed. A refill for your cholesterol medication, atorvastatin, has been sent. - You were given a flu shot today. - Schedule a follow-up appointment to be seen in two months.
[2025-03-28 09:22] VITALS: BP 152/68; PULSE 111; RESP 20; TEMP 36.6; O2SAT 96; BMI 37.4
== END 2025-03-28 09:42 | disposition home or self-care (01) ==
LOC: HO.HMCHD 09:15
PROVIDERS: PCP Student in an Organized Health Care Education/Training Program; Visit Provider Student in an Organized Health Care Education/Training Program
DX: E11.8 Type 2 diabetes mellitus with unspecified complications (principal); E78.5 Hyperlipidemia, unspecified; I10 Essential (primary) hypertension; G62.89 Other specified polyneuropathies; F41.1 Generalized anxiety disorder; N40.1 Benign prostatic hyperplasia with lower urinary tract symptoms; R35.0 Frequency of micturition; F17.210 Nicotine dependence, cigarettes, uncomplicated; Z23 Encounter for immunization

== ENCOUNTER → 2025-03-28 09:14 | Outpatient (BNVA) | payer OTHER, MEDICAID, SELFPAY | PROVIDERS: PCP Student in an Organized Health Care Education/Training Program; Visit Provider Student in an Organized Health Care Education/Training Program | DX: E11.8 Type 2 diabetes mellitus with unspecified complications (principal); Z23 Encounter for immunization; E78.5 Hyperlipidemia, unspecified; I10 Essential (primary) hypertension; G62.89 Other specified polyneuropathies; F41.1 Generalized anxiety disorder; N40.1 Benign prostatic hyperplasia with lower urinary tract symptoms; R35.0 Frequency of micturition; F17.210 Nicotine dependence, cigarettes, uncomplicated; Z79.4 Long term (current) use of insulin; Z79.84 Long term (current) use of oral hypoglycemic drugs; Z79.899 Other long term (current) drug therapy | CPT/HCPCS: 90471; 90662 ==